=== PATIENT | male | born 1965 | race Two or more races ===

== ENCOUNTER → 2020-05-27 08:47 | Outpatient (REF) | payer OTHER, SELFPAY ==
--- NOTE | 2020-05-27 | NM_ITS ---
Lexiscan Myocardial perfusion study Indication: Chest pain, dizziness, COPD, smoking, assess for coronary disease and ischemia Technique: The patient was brought in for a Lexiscan perfusion study on 05/27/2020 and was injected 0.4 mg of Lexiscan intravenously. Within a minute of this injection 30 mCi of sestamibi was given intravenously. Images were obtained using the SPECT gamma camera interlaced with the gating device. Images were obtained in supine position. Resting perfusion study was performed on 05/28/2020. Patient was administered 30 mCi of sestamibi intravenously at rest. Images were then obtained in supine position. Total DLP 98mGy-cm. Images were processed with the software and compared side to side in short axis, horizontal long axis and vertical long axis views. Findings: Raw acquisition was reviewed. The stress perfusion study showed no significant perfusion abnormality. Both uncorrected as well as CT attenuation corrected images were reviewed. The gated study shows normal LV systolic function with calculated LVEF of 69%. LV cavity is normal in size. The gated study shows normal wall thickening and contraction of segments. Resting study shows no significant perfusion abnormality. Gating at rest reveals normal wall motion with ejection fraction at 53%. The findings are consistent with no reversible or fixed perfusion abnormality. NM/NM emilee perf SPECT rest & str Impression: 1. Myocardial perfusion imaging study shows likely normal myocardial perfusion. No definitive evidence of any ischemia or infarction 2. Gated LVEF is 69% during stress and 53 % during rest. 3. Transient ischemic dilatation not present. EKG component of the test reported separately.
--- NOTE | 2020-05-27 08:30 | CA_ITS ---
Acquisition Time: 2020-05-27 09:08:15 Total Exercise Time: 00:02:00 Test Indications: cp Medications: SEE CHART Protocol: LEXISCAN Max HR: 127 BPM 77% of Pred: 164 BPM Max BP: 134/070 mmHG Max Work Load: 1.0 METS Pharmacological stress test using Lexiscan while sitting and kicking his feet. Pt tolerated well. Denies any anginal sx. EKG without any arrhythmias, non-diagnostic for ischemia. Nuclear images to follow. Normotensiver esponse to test. Test reviewed with DR. Garcia Referred By: Jac Vance Overread By: William Vasques
== END ==
LOC: HO.CARD 08:47
PROVIDERS: PCP Internal Medicine; Visit Provider Internal Medicine Cardiovascular Disease
DX: R07.9 Chest pain, unspecified (principal)
CPT/HCPCS: 78452; 93017; A9500; J0280; J2785

== ENCOUNTER → 2020-07-28 09:39 | Outpatient (BNVA) | payer OTHER, SELFPAY | PROVIDERS: PCP Internal Medicine; Visit Provider Internal Medicine | DX: J44.9 Chronic obstructive pulmonary disease, unspecified (principal); G47.33 Obstructive sleep apnea (adult) (pediatric); Z79.899 Other long term (current) drug therapy; Z99.89 Dependence on other enabling machines and devices | CPT/HCPCS: 99212 ==

== ENCOUNTER → 2020-11-19 08:31 | Outpatient (BNVA) | payer OTHER, SELFPAY | PROVIDERS: PCP Internal Medicine; Visit Provider Internal Medicine | DX: Z13.89 Encounter for screening for other disorder (principal) | CPT/HCPCS: Q3014 ==

== ENCOUNTER 2020-11-26 08:09 | Outpatient (REF) | payer OTHER, SELFPAY ==
[2020-11-26 09:20] LABS: Hematocrit 39.3 % (42-52); Hemoglobin 12.6 g/dl (14.0-18.0)
[2020-11-26 09:53] LABS: Cholesterol 90 mg/dL; HDL Cholesterol 36 mg/dL; LDL Cholesterol Calculated 48 mg/dl; Triglycerides 34 mg/dL
[2020-11-26 10:12] LABS: Prostate Specific Antigen 0.17 ng/mL (<0.05-4.0); Vitamin D 25-OH Total 22.6 ng/mL (>30)
[2020-11-27 04:47] LABS: LDL Cholesterol Direct 38 mg/dL (<100)
[2020-11-27 05:12] LABS: Follicle Stimulating Hormone 6.8 mIU/mL (1.6-8.0); Lutenizing Hormone 2.3 mIU/mL (1.5-9.3); Prolactin 7.5 ng/mL (2.0-18.0)
[2020-11-27 07:11] LABS: Sex Hormone Binding Globulin 37 nmol/L (22-77)
[2020-11-30 12:37] LABS: Testosterone, Free 18.9 pg/mL (35.0-155.0); Testosterone, Total 115 ng/dL (250-1100)
== END 2020-11-26 08:10 | disposition home or self-care (01) ==
LOC: HO.LAB 08:09
PROVIDERS: PCP Internal Medicine; Visit Provider Internal Medicine
DX: Z12.5 Encounter for screening for malignant neoplasm of prostate (principal); E55.9 Vitamin D deficiency, unspecified; E29.1 Testicular hypofunction
CPT/HCPCS: 36415; 80061; 82306; 83001; 83002; 83721; 84146; 84153; 84270; 84402; 84403; 85014; 85018

== ENCOUNTER → 2020-12-31 12:48 | Outpatient (BNVA) | payer OTHER, SELFPAY | PROVIDERS: PCP Internal Medicine; Visit Provider Internal Medicine | DX: Z13.89 Encounter for screening for other disorder (principal) | CPT/HCPCS: Q3014 ==

== ENCOUNTER 2021-01-12 07:48 | Outpatient (REF) | payer OTHER, SELFPAY ==
[2021-01-12 09:05] LABS: Blood Urea Nitrogen 18 mg/dL (9-16); Estimated Glomerular Filt Rate > 60
[2021-01-13 07:37] LABS: Follicle Stimulating Hormone 6.1 mIU/mL (1.6-8.0); Lutenizing Hormone 3.4 mIU/mL (1.5-9.3); Prolactin 6.9 ng/mL (2.0-18.0)
[2021-01-13 13:16] LABS: Sex Hormone Binding Globulin 37 nmol/L (22-77)
[2021-01-16 17:56] LABS: Testosterone, Free 17.8 pg/mL (35.0-155.0); Testosterone, Total 125 ng/dL (250-1100)
== END 2021-01-12 07:49 | disposition home or self-care (01) ==
LOC: HO.LAB 07:48
PROVIDERS: Absent Provider Internal Medicine Endocrinology, Diabetes & Metabolism; PCP Internal Medicine; Visit Provider Internal Medicine
DX: E29.1 Testicular hypofunction (principal); E23.0 Hypopituitarism
CPT/HCPCS: 36415; 82565; 83001; 83002; 84146; 84270; 84402; 84403; 84520

== ENCOUNTER 2021-01-28 08:14 | Outpatient (REF) | payer OTHER, SELFPAY ==
--- NOTE | ~2021-01-28 | MR_ITS ---
MR BRAIN WITHOUT AND WITH CONTRAST CLINICAL INFORMATION: Testicular hypofunction. COMPARISON: None available. TECHNIQUE: Multiplanar, multisequence MRI of the brain was obtained before and after the intravenous administration of 5 mL Gadavist. FINDINGS: There is a 9 mm x 7 mm x 8 mm hypoenhancing lesion within the anterior aspect of the anterior pituitary lobe that is most suggestive of a pituitary microadenoma. The infundibulum remains midline and there is no mass effect on the optic nerve apparatus. There is no pathologic intracranial enhancement. There is mild chronic microangiopathy. There is no hydrocephalus, extra-axial surface collection, or herniation. The major flow voids at the skull base are preserved. There is no acute infarct on diffusion-weighted imaging. The cerebellar tonsils are normally positioned. The cerebellum and brainstem are normal. The craniocervical junction is normal. Osseous marrow signal intensity is homogenous. The visualized soft tissues are unremarkable. MR/MR head/brain wo/w con IMPRESSION: There is a 9 mm mm hypoenhancing lesion within the anterior aspect of the anterior pituitary lobe that is most suggestive of a pituitary microadenoma. No sellar/suprasellar mass effect.
== END 2021-01-28 08:15 | disposition home or self-care (01) ==
LOC: HO.MRI 08:14
PROVIDERS: PCP Internal Medicine; Visit Provider Internal Medicine
DX: E29.1 Testicular hypofunction (principal)
CPT/HCPCS: 70553; A9585

== ENCOUNTER 2021-02-06 07:19 | Outpatient (REF) | payer OTHER, SELFPAY ==
[2021-02-06 08:10] LABS: Anion Gap 10 (12-20); Blood Urea Nitrogen 19 mg/dL (9-16); Calcium 8.8 mg/dL (8.4-10.2); Carbon Dioxide 26 mmol/L (22-29); Chloride 108 mmol/L (96-108); Estimated Glomerular Filt Rate > 60; Glucose Random 119 mg/dL (60-115); Potassium 4.4 mmol/L (3.3-5.1); Sodium 140 mmol/L (135-145)
[2021-02-06 08:32] LABS: Free T4 (Free Thyroxine) 1.03 ng/dL (0.71-1.85); Thyroid Stimulating Hormone 0.96 uIU/mL (0.32-4.0)
[2021-02-07 18:56] LABS: Triiodothyronine T3 Total 107 ng/dL (76-181)
[2021-02-08 09:51] LABS: Follicle Stimulating Hormone 3.9 mIU/mL (1.6-8.0); Lutenizing Hormone 1.4 mIU/mL (1.5-9.3); Prolactin Undiluted 13.3 ng/mL (2.0-18.0)
[2021-02-09 14:21] LABS: Adrenocorticotropic Hormone 19 pg/mL (6-50)
[2021-02-09 15:57] LABS: IGF-1 (Somatomedin C) 73 ng/mL (50-317); IGF-1 Z Score (Male) -1.2 SD (-2.0 - +2.0)
[2021-02-12 10:03] LABS: Sex Hormone Binding Globulin 43 nmol/L (22-77)
[2021-02-12 15:47] LABS: Testosterone, Free 9.5 pg/mL (35.0-155.0); Testosterone, Total 64 ng/dL (250-1100)
== END 2021-02-06 07:20 | disposition home or self-care (01) ==
LOC: HO.LAB 07:19
PROVIDERS: PCP Internal Medicine; Visit Provider Internal Medicine
DX: D35.2 Benign neoplasm of pituitary gland (principal)
CPT/HCPCS: 36415; 80048; 82024; 82533; 83001; 83002; 84146; 84270; 84305; 84402; 84403; 84439; 84443; 84480

== ENCOUNTER → 2021-03-25 15:29 | Outpatient (BNVA) | payer OTHER, SELFPAY | PROVIDERS: PCP Internal Medicine; Visit Provider Internal Medicine | DX: E29.1 Testicular hypofunction (principal); D35.2 Benign neoplasm of pituitary gland; G47.33 Obstructive sleep apnea (adult) (pediatric); E55.9 Vitamin D deficiency, unspecified; E04.9 Nontoxic goiter, unspecified; F17.210 Nicotine dependence, cigarettes, uncomplicated; Z99.89 Dependence on other enabling machines and devices; Z79.891 Long term (current) use of opiate analgesic; Z79.899 Other long term (current) drug therapy | CPT/HCPCS: 99212 ==

== ENCOUNTER 2021-03-26 07:37 | Outpatient (REF) | payer OTHER, SELFPAY ==
[2021-03-26 09:20] LABS: Prostate Specific Antigen 0.25 ng/mL (<0.05-4.0)
[2021-03-27 19:26] LABS: Sex Hormone Binding Globulin 41 nmol/L (22-77)
[2021-03-31 09:36] LABS: Prolactin Undiluted 7.6 ng/mL (2.0-18.0)
[2021-03-31 13:21] LABS: Testosterone, Free 13.3 pg/mL (35.0-155.0); Testosterone, Total 104 ng/dL (250-1100)
== END 2021-03-26 07:38 | disposition home or self-care (01) ==
LOC: HO.LAB 07:37
PROVIDERS: PCP Internal Medicine; Visit Provider Internal Medicine
DX: Z12.5 Encounter for screening for malignant neoplasm of prostate (principal); D35.2 Benign neoplasm of pituitary gland
CPT/HCPCS: 36415; 84146; 84153; 84270; 84402; 84403

== ENCOUNTER → 2021-05-11 11:15 | Outpatient (BNVA) | payer OTHER, SELFPAY | PROVIDERS: PCP Internal Medicine; Visit Provider Internal Medicine | DX: Z13.89 Encounter for screening for other disorder (principal) | CPT/HCPCS: Q3014 ==

== ENCOUNTER 2021-05-18 09:19 | Outpatient (REF) | payer OTHER, SELFPAY ==
--- NOTE | ~2021-05-18 | US_ITS ---
EXAMINATION: US THYROID CLINICAL INFORMATION: Goiter COMPARISON: None TECHNIQUE: Linear transducer miller-scale and color Doppler examination with attention to the region of the thyroid. FINDINGS: SIZE: Measurements of the thyroid lobes and nodules are given in sagittal, anteroposterior and transverse dimensions respectively. Right Thyroid Lobe: 4.35 x 2.02 x 2.29 cm, volume 10.6 mL. Parenchyma: The gland echotexture is homogeneous. Thyroid vascularity is increased. Left Thyroid Lobe: 4.66 x 1.71 x 2.02 cm, volume 8.44 mL. Parenchyma: The gland echotexture is homogeneous. Thyroid vascularity is increased. Isthmus: 0.37 cm in maximum AP dimension. No focal thyroid nodule is seen. NODES: No lymphadenopathy is seen in the tissue surrounding the thyroid gland. US/US thyroid IMPRESSION: Unremarkable exam.
== END 2021-05-18 09:20 | disposition home or self-care (01) ==
LOC: HO.HMGCX 09:19
PROVIDERS: PCP Internal Medicine; Visit Provider Internal Medicine
DX: D35.2 Benign neoplasm of pituitary gland (principal)
CPT/HCPCS: 76536

== ENCOUNTER 2021-05-27 11:35 | Outpatient (REF) | payer OTHER, SELFPAY ==
[2021-05-27 12:35] LABS: Hematocrit 38.3 % (42.0-52.0); Hemoglobin 12.4 g/dl (14.0-18.0)
[2021-05-28 10:47] LABS: Sex Hormone Binding Globulin 38 nmol/L (22-77)
[2021-06-01 16:11] LABS: Testosterone, Free 96.7 pg/mL (35.0-155.0); Testosterone, Total 537 ng/dL (250-1100)
== END 2021-05-27 11:36 | disposition home or self-care (01) ==
LOC: HO.LAB 11:35
PROVIDERS: PCP Internal Medicine; Visit Provider Internal Medicine
DX: D35.2 Benign neoplasm of pituitary gland (principal); E23.0 Hypopituitarism
CPT/HCPCS: 36415; 84270; 84402; 84403; 85014; 85018

== ENCOUNTER → 2021-06-25 10:14 | Outpatient (BNVA) | payer OTHER, SELFPAY | PROVIDERS: PCP Internal Medicine; Visit Provider Internal Medicine ==

== ENCOUNTER → 2021-08-03 07:42 | Outpatient (BNVA) | payer OTHER, SELFPAY | PROVIDERS: PCP Internal Medicine; Visit Provider Internal Medicine | DX: E23.0 Hypopituitarism (principal); E55.9 Vitamin D deficiency, unspecified; D35.2 Benign neoplasm of pituitary gland | CPT/HCPCS: Q3014 ==

== ENCOUNTER 2021-08-07 10:10 | Outpatient (REF) | payer OTHER, SELFPAY ==
[2021-08-08 11:01] LABS: Sex Hormone Binding Globulin 35 nmol/L (22-77)
[2021-08-13 14:56] LABS: Testosterone, Free 155.8 pg/mL (35.0-155.0); Testosterone, Total 779 ng/dL (250-1100)
== END 2021-08-07 10:11 | disposition home or self-care (01) ==
LOC: HO.LAB 10:10
PROVIDERS: PCP Internal Medicine; Visit Provider Internal Medicine
DX: E29.1 Testicular hypofunction (principal)
CPT/HCPCS: 36415; 84270; 84402; 84403

== ENCOUNTER 2021-08-21 08:08 | Outpatient (REF) | payer OTHER, SELFPAY ==
--- NOTE | ~2021-08-21 | MR_ITS ---
EXAMINATION: MR BRAIN WITHOUT AND WITH CONTRAST CLINICAL INFORMATION: Benign neoplasm of pituitary. COMPARISON: MRI brain 01/28/2021. MRI brain 07/20/2019. TECHNIQUE: Multiplanar, multisequence pituitary protocol MRI of the brain was obtained before and after the intravenous administration of 5 mL Gadavist. FINDINGS: A 9 mm x 7 mm by 8mm rounded focus with low signal intensity relative to pituitary elsewhere and contrast-enhanced images is present centrally within the anterior aspect of the pituitary. The cavernous sinuses, pituitary stalk, suprasellar cistern and optic chiasm are normal in appearance. Unenhanced images demonstrate homogeneous intermediate low T1 and high T2-weighted signal intensity within the 9 mm pituitary lesion noted above. Of note, thin section images through the pituitary are slightly suboptimal secondary to motion artifact. Elsewhere within the brain, no additional tumors are noted. No intracranial hemorrhage or infarcts are identified. The ventricles and sulci are normal in size and configuration. A small number scattered supratentorial nonenhancing rounded subcortical punctate (3 mm less) T2 hyperintensities are unchanged compared with 01/28/2021 making allowances for interval differences in slice selection. The craniocervical junction cerebellar tonsils are normal in appearance. No suspicious marrow abnormalities identified. Normal flow-related signal intensity is identified in the major intrarenal vessels and dural sinuses. Making allowances for artifacts, no acute abnormalities of the orbits and globes are noted. Mild tortuosity of the optic nerves is partially visualized and appears grossly stable compared with 01/28/2021 no gross intraorbital tumors are noted. Whole brain postcontrast enhanced images demonstrate no abnormal enhancement of the brain parenchyma outside of the pituitary focus noted above. MR/MR head/brain wo/w con IMPRESSION: *No change compared with 01/28/2021. Stable 9 mm lesion within the midline anterior aspect of the pituitary which as noted on the exam of 01/28/2021 is suggestive of a pituitary microadenoma. No associated invasion of the cavernous sinus or effacement of the sellar/suprasellar cisterns.
[2021-08-23 08:16] LABS: Sex Hormone Binding Globulin 31 nmol/L (22-77)
[2021-08-27 10:37] LABS: Testosterone, Total 432 ng/dL (250-1100)
== END 2021-08-21 08:09 | disposition home or self-care (01) ==
LOC: HO.MRI 08:08
PROVIDERS: PCP Internal Medicine; Visit Provider Internal Medicine
DX: D35.2 Benign neoplasm of pituitary gland (principal); E23.0 Hypopituitarism
CPT/HCPCS: 36415; 70553; 84270; 84402; 84403; A9585

== ENCOUNTER 2021-09-30 09:38 | Outpatient (REF) | payer OTHER, SELFPAY ==
[2021-09-30 12:13] LABS: Thyroid Stimulating Hormone 0.95 uIU/mL (0.32-4.0)
[2021-10-01 08:21] LABS: Triiodothyronine T3 Total 94 ng/dL (76-181)
== END 2021-09-30 09:39 | disposition home or self-care (01) ==
LOC: HO.LAB 09:38
PROVIDERS: PCP Internal Medicine; Visit Provider Internal Medicine
DX: E23.0 Hypopituitarism (principal); D35.2 Benign neoplasm of pituitary gland; E55.9 Vitamin D deficiency, unspecified; Z79.899 Other long term (current) drug therapy
CPT/HCPCS: 36415; 84439; 84443; 84480; 99212

== ENCOUNTER 2021-11-16 11:46 | Outpatient (REF) | payer OTHER, SELFPAY ==
--- NOTE | ~2021-11-16 | XR_ITS ---
EXAMINATION: XR LUMBOSACRAL SPINE CLINICAL INFORMATION: Pain COMPARISON: None TECHNIQUE: Three views of the lumbosacral spine. FINDINGS: Bone alignment is normal. No fracture or dislocation is seen. There is multilevel degenerative disc disease. There is multilevel facet arthritis. XR/XR lumbar spine 2-3V IMPRESSION: Multilevel degenerative changes.
--- NOTE | ~2021-11-16 | XR_ITS ---
EXAMINATION: BILATERAL KNEE X-RAY CLINICAL INFORMATION: Pain COMPARISON: Previous exam November 1999 TECHNIQUE: 4 views of each knee FINDINGS: Right: Bone alignment is normal. No fracture or dislocation is seen. There are mild degenerative changes at the medial femoral tibial joint with joint space narrowing and osteophyte formation. Joint spaces are otherwise normal. There is no joint effusion. Left: Bone alignment is normal. No fracture or dislocation is seen. Joint spaces are normal. There is no joint effusion. XR/XR knee RT 4V IMPRESSION: Right knee: Mild degenerative changes at the medial femoral tibial joint. Left knee: Unremarkable exam.
--- NOTE | ~2021-11-16 | XR_ITS ---
EXAMINATION: BILATERAL KNEE X-RAY CLINICAL INFORMATION: Pain COMPARISON: Previous exam November 1999 TECHNIQUE: 4 views of each knee FINDINGS: Right: Bone alignment is normal. No fracture or dislocation is seen. There are mild degenerative changes at the medial femoral tibial joint with joint space narrowing and osteophyte formation. Joint spaces are otherwise normal. There is no joint effusion. Left: Bone alignment is normal. No fracture or dislocation is seen. Joint spaces are normal. There is no joint effusion. XR/XR knee LT 4V IMPRESSION: Right knee: Mild degenerative changes at the medial femoral tibial joint. Left knee: Unremarkable exam.
== END 2021-11-16 11:47 | disposition home or self-care (01) ==
LOC: HO.XRAY 11:46
PROVIDERS: PCP Internal Medicine; Visit Provider Internal Medicine
DX: M15.9 Polyosteoarthritis, unspecified (principal); M54.59 Other low back pain
CPT/HCPCS: 72100; 73564

== ENCOUNTER → 2022-01-06 11:51 | Outpatient (BNVA) | payer OTHER, SELFPAY | PROVIDERS: PCP Internal Medicine; Visit Provider Internal Medicine | DX: E23.0 Hypopituitarism (principal); E55.9 Vitamin D deficiency, unspecified; D35.2 Benign neoplasm of pituitary gland; Z79.899 Other long term (current) drug therapy | CPT/HCPCS: Q3014 ==

== ENCOUNTER 2022-03-08 08:47 | Outpatient (REF) | payer OTHER, SELFPAY ==
[2022-03-08 09:36] LABS: Hematocrit 41.5 % (42.0-52.0); Hemoglobin 13.7 g/dl (14.0-18.0)
[2022-03-08 09:58] LABS: Osmolality, Serum 292 mosm/kg (281-305)
[2022-03-08 10:04] LABS: Anion Gap 13 (12-20); Blood Urea Nitrogen 18 mg/dL (9-16); Calcium 8.6 mg/dL (8.4-10.2); Carbon Dioxide 26 mmol/L (22-29); Chloride 103 mmol/L (96-108); Estimated Glomerular Filt Rate > 60; Glucose Random 106 mg/dL (60-115); Potassium 4.1 mmol/L (3.3-5.1); Sodium 138 mmol/L (135-145)
[2022-03-08 10:29] LABS: Free T4 (Free Thyroxine) 1.09 ng/dL (0.71-1.85); Prostate Specific Antigen 0.08 ng/mL (<0.05-4.0); Thyroid Stimulating Hormone 1.18 uIU/mL (0.32-4.0); Vitamin D 25-OH Total 30.6 ng/mL (>30)
[2022-03-08 11:01] LABS: Cortisol Random 11.9 ug/dL
[2022-03-10 04:51] LABS: Sex Hormone Binding Globulin 30 nmol/L (22-77)
[2022-03-10 05:32] LABS: Triiodothyronine T3 Free 3.8 pg/mL (2.3-4.2)
[2022-03-11 14:36] LABS: Adrenocorticotropic Hormone 18 pg/mL (6-50)
[2022-03-11 22:03] LABS: Follicle Stimulating Hormone 2.4 mIU/mL (1.6-8.0); Lutenizing Hormone 0.9 mIU/mL (1.5-9.3); Prolactin Undiluted 5.5 ng/mL (2.0-18.0)
[2022-03-12 14:52] LABS: IGF-1 (Somatomedin C) 84 ng/mL (50-317)
[2022-03-13 21:36] LABS: Estradiol Ultra Sensitive 7 pg/mL (< OR = 29)
[2022-03-16 19:31] LABS: Testosterone, Free 3.8 pg/mL (35.0-155.0); Testosterone, Total 21 ng/dL (250-1100)
== END 2022-03-08 08:48 | disposition home or self-care (01) ==
LOC: HO.LAB 08:47
PROVIDERS: PCP Internal Medicine; Visit Provider Internal Medicine
DX: D35.2 Benign neoplasm of pituitary gland (principal); E29.1 Testicular hypofunction; E55.9 Vitamin D deficiency, unspecified; Z12.5 Encounter for screening for malignant neoplasm of prostate
CPT/HCPCS: 36415; 80048; 82024; 82306; 82533; 82670; 83001; 83002; 83930; 84146; 84153; 84270; 84305; 84402; 84403; 84439; 84443; 84481; 85014; 85018

== ENCOUNTER → 2022-03-15 12:32 | Outpatient (BNVA) | payer OTHER, SELFPAY | PROVIDERS: PCP Internal Medicine; Visit Provider Internal Medicine | DX: E23.0 Hypopituitarism (principal); E55.9 Vitamin D deficiency, unspecified; D35.2 Benign neoplasm of pituitary gland; Z79.899 Other long term (current) drug therapy | CPT/HCPCS: 99212 ==

== ENCOUNTER 2022-04-12 08:07 | Outpatient (REF) | payer OTHER, SELFPAY ==
--- NOTE | ~2022-04-12 | MR_ITS ---
EXAMINATION: MR BRAIN WITHOUT AND WITH CONTRAST CLINICAL INFORMATION: Benign neoplasm of pituitary gland. COMPARISON: Brain MRI August 13, 2021. TECHNIQUE: Multiplanar, multisequence imaging of the brain was performed before and after the intravenous administration of 5 mL of Gadavist. FINDINGS: There is redemonstration of a hypoenhancing lesion within the anterior aspect of the pituitary gland measuring up to 8 mm which appears stable compared with the recent prior exam from August 21, 2021. The remainder the pituitary gland appears normal. The infundibulum is normal in thickness and morphology. The cavernous sinuses demonstrate normal and symmetric enhancement. The optic apparatus appears normal. There is no acute infarction, parenchymal mass, or extra-axial fluid collection. No abnormal parenchymal enhancement is seen. Minimal nonspecific foci of T2/FLAIR hyperintensity are seen within the cerebral white matter. The major arterial flow voids are preserved at the skull base. The extracranial structures appear normal. MR/MR head/brain wo/w con IMPRESSION: Stable appearance of the 8 mm anterior pituitary microadenoma. No evidence of new or acute abnormality.
== END 2022-04-12 08:08 | disposition home or self-care (01) ==
LOC: HO.MRI 08:07
PROVIDERS: Visit Provider Internal Medicine
DX: D35.2 Benign neoplasm of pituitary gland (principal)
CPT/HCPCS: 70553; A9585

== ENCOUNTER 2022-08-19 07:06 | Outpatient (REF) | payer OTHER, SELFPAY ==
[2022-08-19 07:48] LABS: Anion Gap 15 (12-20); Blood Urea Nitrogen 17 mg/dL (9-16); Calcium 9.1 mg/dL (8.4-10.2); Carbon Dioxide 26 mmol/L (22-29); Chloride 103 mmol/L (96-108); Estimated Glomerular Filt Rate > 60; Glucose Random 114 mg/dL (60-115); Potassium 4.1 mmol/L (3.3-5.1); Sodium 140 mmol/L (135-145)
[2022-08-19 08:03] LABS: Free T4 (Free Thyroxine) 2.06 ng/dL (0.71-1.85); Thyroid Stimulating Hormone 1.67 uIU/mL (0.32-4.0)
[2022-08-19 08:04] LABS: Cortisol Random 16.3 ug/dL
[2022-08-19 08:52] LABS: Osmolality, Serum 293 mosm/kg (281-305)
[2022-08-20 14:39] LABS: Adrenocorticotropic Hormone 32 pg/mL (6-50)
[2022-08-21 16:08] LABS: Triiodothyronine T3 Total 99 ng/dL (76-181)
[2022-08-22 02:04] LABS: Sex Hormone Binding Globulin 28 nmol/L (22-77)
[2022-08-23 21:08] LABS: Follicle Stimulating Hormone 3.4 mIU/mL (1.6-8.0); Lutenizing Hormone 0.6 mIU/mL (1.5-9.3); Prolactin Undiluted 6.7 ng/mL (2.0-18.0)
[2022-08-26 13:34] LABS: IGF-1 (Somatomedin C) 91 ng/mL (50-317); IGF-1 Z Score (Male) -0.8 SD (-2.0 - +2.0)
[2022-08-27 19:03] LABS: Testosterone, Free 5.6 pg/mL (35.0-155.0); Testosterone, Total 37 ng/dL (250-1100)
== END 2022-08-19 07:07 | disposition home or self-care (01) ==
LOC: HO.LAB 07:06
PROVIDERS: PCP Internal Medicine; Visit Provider Internal Medicine
DX: D35.2 Benign neoplasm of pituitary gland (principal)
CPT/HCPCS: 36415; 80048; 82024; 82533; 83001; 83002; 83930; 84146; 84270; 84305; 84402; 84403; 84439; 84443; 84480

== ENCOUNTER → 2022-08-23 07:53 | Outpatient (BNVA) | payer OTHER, SELFPAY | PROVIDERS: PCP Internal Medicine; Visit Provider Internal Medicine | DX: E23.0 Hypopituitarism (principal); E55.9 Vitamin D deficiency, unspecified; D35.2 Benign neoplasm of pituitary gland | CPT/HCPCS: 99212 ==

== ENCOUNTER 2022-08-24 08:07 | Outpatient (REF) | payer OTHER, SELFPAY ==
--- NOTE | ~2022-08-24 | MM_ITS ---
EXAMINATION: BONE DENSITOMETRY CLINICAL INDICATION: Hypopituitarism. COMPARISON: None (current study represents initial baseline exam). TECHNIQUE: Using a [employer] DXA System (software version: 13.1) manufactured by [employer], dual-energy x-ray absorptiometry was performed of the lumbar spine and left hip. The images are of good technical quality. Summary results are attached. FINDINGS: AP SPINE L1-L2 (excluding L3 and L4): The data of L1-L4 has been changed to exclude the L3 and L4 vertebral bodies, because degenerative changes at these levels may cause overestimation of lumbar spine density. BMD 0.988 g/cm2, Z-score -2.2, T-score -1.8, osteopenia. LEFT FEMUR, NECK: BMD 0.892 g/cm2, Z-score -1.0, T-score -1.4, osteopenia. LEFT FEMUR, TOTAL: BMD 1.017 g/cm2, Z-score -0.6, T-score -0.6, normal. IDENTIFIED RISK FACTORS: Medical use (current smoker), secondary osteoporosis. HISTORY OF FRACTURE: None listed. MEDICATIONS: None listed. MM/XR DEXA axial skeleton IMPRESSION: 1. DIAGNOSIS: Osteopenia based on the lowest T-score value of -1.8 in the lumbar spine applying World Health Organization criteria. 2. 10-YEAR FRACTURE RISK PREDICTION, FRAX: Major osteoporotic fracture (clinical spine, forearm, hip or shoulder) 2.8%. Hip fracture 0.4%. 3. Treatment Recommendations: NOF guidelines recommend consideration for treatment in postmenopausal women and men age 50 and older presenting with the following: -A hip or vertebral (clinical or morphometric) fracture. -T-score less than or equal to -2.5 at the femoral neck or spine after appropriate evaluation to exclude secondary causes. -Low bone mass at the hip or spine and a 10-year fracture probability by FRAX of greater than or equal to 3% for hip fracture or greater than or equal to 20% for major osteoporotic fracture based on the [place] adapted WHO algorithm. 4. Other Recommendations: All treatment decisions require clinical judgment and consideration of individual patient factors, including patient preferences, comorbidities, previous drug use, risk factors not captured in the FRAX model (e.g. frailty, falls, vitamin D deficiency, increased bone turnover, interval significant decline in bone density) and possible under or overestimation of fracture risk by FRAX. Additional medical evaluation for secondary cause of low bone mineral density may be appropriate. FUTURE SCAN RECOMMENDATION: People with diagnosed cases of osteoporosis or at high risk for fracture should have regular bone mineral density tests. For patients eligible for Medicare, routine testing is allowed once every 2 years. The testing frequency can be increased to one year for patients who have rapidly progressing disease, those who are receiving or discontinuing medical therapy to restore bone mass, or have additional risk factors.
== END 2022-08-24 08:08 | disposition home or self-care (01) ==
LOC: HO.MAMMO 08:07
PROVIDERS: PCP Internal Medicine; Visit Provider Internal Medicine
DX: Z13.820 Encounter for screening for osteoporosis (principal); E23.0 Hypopituitarism
CPT/HCPCS: 77080

== ENCOUNTER 2022-09-20 07:06 | Outpatient (REF) | payer OTHER, SELFPAY ==
[2022-09-20 07:49] LABS: Hematocrit 41.9 % (42.0-52.0); Hemoglobin 13.6 g/dl (14.0-18.0)
[2022-09-20 08:42] LABS: Prostate Specific Antigen 0.14 ng/mL (<0.05-4.0)
[2022-09-21 10:29] LABS: Sex Hormone Binding Globulin 25 nmol/L (22-77)
[2022-09-28 16:14] LABS: Testosterone, Free 4.2 pg/mL (35.0-155.0); Testosterone, Total 23 ng/dL (250-1100)
== END 2022-09-20 07:07 | disposition home or self-care (01) ==
LOC: HO.LAB 07:06
PROVIDERS: PCP Internal Medicine; Visit Provider Internal Medicine
DX: E23.0 Hypopituitarism (principal); Z12.5 Encounter for screening for malignant neoplasm of prostate
CPT/HCPCS: 36415; 84153; 84270; 84402; 84403; 85014; 85018

== ENCOUNTER → 2022-11-24 07:23 | Outpatient (BNVA) | payer OTHER, SELFPAY | PROVIDERS: PCP Internal Medicine; Visit Provider Internal Medicine | DX: E23.0 Hypopituitarism (principal); E55.9 Vitamin D deficiency, unspecified; D35.2 Benign neoplasm of pituitary gland; M85.80 Other specified disorders of bone density and structure, unspecified site; Z79.899 Other long term (current) drug therapy | CPT/HCPCS: 99212 ==

== ENCOUNTER 2023-02-03 07:29 | Outpatient (REF) | payer OTHER, SELFPAY ==
--- NOTE | ~2023-02-03 | MR_ITS ---
EXAMINATION: MR BRAIN WITHOUT AND WITH CONTRAST CLINICAL INFORMATION: Benign neoplasm of the pituitary gland. COMPARISON: Brain MRI from 04/11/2022. TECHNIQUE: MRI of the brain was obtained using pituitary protocol without and following the administration of 5 mL of Gadavist intravenous contrast. FINDINGS: No focal restricted diffusion is demonstrated to suggest acute or subacute cerebral ischemia. Scattered periventricular and deep white matter T2 FLAIR hyperintensities consistent with mild underlying microangiopathy. Proportional prominence of the ventricles and sulcal spaces without evidence of obstructive hydrocephalus. No abnormal mass effect. No midline shift. Stable appearance of the hypoenhancing lesion inferior to the anterior aspect of the pituitary gland, measuring up to 0.8 x 0.6 x 0.6 cm. This lesion demonstrates T2 hyperintensity. There is no new hyperenhancing lesion demonstrated on post contrast imaging. The pituitary infundibulum is minimally deviated to the right. The suprasellar cistern remains patent. No abnormal mass effect on the optic chiasm. Normal positioning of the cerebellar tonsils. Normal arterial and venous vascular flow voids are present. No abnormal contrast enhancement. Normal, homogeneous marrow signal. Mild mucosal thickening of the paranasal sinuses. No signal abnormalities within the mastoids. MR/MR head/brain wo/w con IMPRESSION: 1. Stable appearance of a 0.8 cm hypoenhancing lesion inferior to the anterior aspect of the pituitary gland, suggestive of a pituitary microadenoma. 2. No acute intracranial abnormalities. No additional abnormal intracranial enhancement. 3. Mild underlying microangiopathy and generalized cerebral volume loss.
== END 2023-02-03 07:30 | disposition home or self-care (01) ==
LOC: HO.MRI 07:29
PROVIDERS: PCP Internal Medicine; Visit Provider Internal Medicine
DX: D35.2 Benign neoplasm of pituitary gland (principal)
CPT/HCPCS: 70553; A9585

== ENCOUNTER 2023-03-14 07:34 | Outpatient (AMB) | payer OTHER, SELFPAY ==
--- NOTE | 2023-03-14 07:35 | A.OFFVIS_ITS ---
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 Back Tender Cylinder Required: No Allergies No Known Allergies [No Known Allergies*] Allergy (Verified 03/14/23 07:49) Medication List - Last Reconciled 03/14/23 by Moira Spencer, albuterol sulfate 90 mcg/actuation (ProAir HFA) 2 puffs inhalation Q6H PRN bupropion HCl (Wellbutrin SR) 150 mg PO BID celecoxib 0 mg PO dexamethasone 1 mg PO DAILY ferrous sulfate (FeroSul) 325 mg PO Q OTHER DAY fluticasone propion-salmeterol 250-50 mcg/dose (Wixela Inhub) 1 inh inhalation BID gabapentin 100 mg PO BEDTIME ipratropium-albuterol 20-100 mcg/actuation (Combivent Respimat) 1 puff inhalation QID lidocaine 5% 5 appl topical DAILY methadone 52 mg PO DAILY omeprazole 20 mg PO DAILY pantoprazole 1 tab PO DAILY polyethylene glycol 3350 8.5 grams PO DAILY PRN propranolol 1 tab PO BID risperidone 2 mg PO BEDTIME testosterone (AndroGel) 1 packet transdermal DAILY 30 days trazodone 1 tab PO BEDTIME HPI HPI Comments History of Present Illness Details 57 YO Male with PMHx Hypogonadism who is seen in F/U for a pituitary microadenoma and hypogonadism. First diagnosed with Hypogonadism in the early 1999's. Was started on Testosterone supplementation with androgel. Stopped this in 2018. He is unsure why this was stopped. We checked labs after our initial visit, and this revealed hypogonadotropic hypogonadism. Pituitary MRI was checked 01/28/21 which revealed a 0.9 cm pituitary microadenoma. There did not appear to be encroachment on the optic apparatus. A full pituitary panel was checked which confirmed hypogonadotropic hypogonadism, but was otherwise WNL. Prolactin was WNL, but unfortunately dilution was initially not assessed. Prolactin was repeated, including by dilution, and both were WNL. He was started on Androgel 1 packet transdermal daily. Testosterone was at goal on this, but he stopped it of his own accord. Repeat testosterone levels after 2 months off treatment were WNL, so he was not resumed on androgel. Levels were repeated again and now are in hypogonadal range. He was again resumed on androgel 1 packet transdermal daily, but has not yet repeated labs. Pituitary MRI was repeated 02/03/2023 and was unchanged from prior. He does complain of headaches, but denies blurred vision and double vision. He does report pressure/pain in the right eye. He was referred to Ophtho and underwent a visual field exam 05/28/2021. Visual castillo were WNL at that time. He was asked to F/U again with optho but has not yet done so. He has an appointment for January. He was also referred to neurosurgery due to his headaches, and has his appointment coming up next month. He did have a DXA which reveals osteopenia at all sites. with children who were conceived spontaneously. He does have VICTORIA and uses his CPAP nightly. Denies gynecomastia or galactorrhea. Denies any history of DVT or PE. Pituitary MRI: 02/03/2023 TECHNIQUE: MRI of the brain was obtained using pituitary protocol without and following the administration of 5 mL of Gadavist intravenous contrast. FINDINGS: No focal restricted diffusion is demonstrated to suggest acute or subacute cerebral ischemia. Scattered periventricular and deep white matter T2 FLAIR hyperintensities consistent with mild underlying microangiopathy. Proportional prominence of the ventricles and sulcal spaces without evidence of obstructive hydrocephalus. No abnormal mass effect. No midline shift. Stable appearance of the hypoenhancing lesion inferior to the anterior aspect of the pituitary gland, measuring up to 0.8 x 0.6 x 0.6 cm. This lesion demonstrates T2 hyperintensity. There is no new hyperenhancing lesion demonstrated on post contrast imaging. The pituitary infundibulum is minimally deviated to the right. The suprasellar cistern remains patent. No abnormal mass effect on the optic chiasm. Normal positioning of the cerebellar tonsils. Normal arterial and venous vascular flow voids are present. No abnormal contrast enhancement. Normal, homogeneous marrow signal. Mild mucosal thickening of the paranasal sinuses. No signal abnormalities within the mastoids. MR/MR head/brain wo/w con IMPRESSION: 1.? Stable appearance of a 0.8 cm hypoenhancing lesion inferior to the anterior aspect of the pituitary gland, suggestive of a pituitary microadenoma. 2.? No acute intracranial abnormalities. No additional abnormal intracranial enhancement. 3.? Mild underlying microangiopathy and generalized cerebral volume loss. DXA: 08/24/2022 FINDINGS: AP SPINE L1-L2 (excluding L3 and L4): The data of L1-L4 has been changed to exclude the L3 and L4 vertebral bodies, because degenerative changes at these levels may cause overestimation of lumbar spine density. BMD 0.988 g/cm2, Z-score -2.2, T-score -1.8, osteopenia. LEFT FEMUR, NECK: BMD 0.892 g/cm2, Z-score -1.0, T-score -1.4, osteopenia. LEFT FEMUR, TOTAL: BMD 1.017 g/cm2, Z-score -0.6, T-score -0.6, normal. Labs: Laboratory Tests 03/08/22 03/08/22 08/19/22 09:07 09:07 07:17 Sodium 140 Potassium 4.1 Creatinine 0.85 Estimated GFR > 60 Osmolality Prostate Specific Ag 0.08 25-OH Vitamin D To romero 30.6 TSH 1.67 Free T4 2.06 H Total T3 FSH 2.4 Luteinizing Hormon e 0.9 L Prolactin Undilute d 5.5 Total Testosterone 21 L Fr Testosterone Di gavino 3.8 L Sex Hormone Bind G lob Random Cortisol ACTH 08/19/22 08/19/22 08/19/22 07:17 07:17 07:17 Sodium Potassium Creatinine Estimated GFR Osmolality 293 Prostate Specific Ag 25-OH Vitamin D To romero TSH Free T4 Total T3 99 FSH Luteinizing Hormon e Prolactin Undilute d Total Testosterone Fr Testosterone Di gavino Sex Hormone Bind G lob 28 Random Cortisol ACTH 32 08/19/22 07:17 Sodium Potassium Creatinine Estimated GFR Osmolality Prostate Specific Ag 25-OH Vitamin D To romero TSH Free T4 Total T3 FSH Luteinizing Hormon e Prolactin Undilute d Total Testosterone Fr Testosterone Di gavino Sex Hormone Bind G lob Random Cortisol 16.3 ACTH PFSH Medical History Colon polyps COPD (chronic obstructive pulmonary disease) Goiter Hepatitis C Hypogonadism Hypogonadism in male Hypogonadotropic hypogonadism Myalgia VICTORIA (obstructive sleep apnea) Osteoarthritis Osteopenia Pituitary microadenoma Sleep apnea Thrombocytopenia Vitamin D deficiency Surgical History Hx of carpal tunnel repair Family History Maternal Aunt Cancer Father Diabetes Paternal Aunt Diabetes Paternal Aunt Diabetes Social History Alcohol intake: former Patient Tobacco Use Status: Current everyday Tobacco user Cigarette Packs Per Day: 10 Years Smoked: 45 Substance Use Type: Prescription Drugs Assessment & Plan Assessment & Plan (1) Hypogonadotropic hypogonadism: Code(s): E23.0 - Hypopituitarism Plan: Patient with hypogonadotropic hypogonadism. He does have a 0.8 cm pituitary microadenoma, which is nonsecreting. He has been resumed on Testosterone 1% 1 packet transdermal daily. He has not yet repeated labs. Patient will be folowing up with Dr. Tinajero and will complete labs per his discretion. We did discuss potential ADRs of polycythemia, BPH and prostate cancer. We also discussed ADRs of aggression. All of his questions were answered. He is in agreement with this plan of care. I spent 20 minutes in reviewing the record, seeing the patient and documenting in the medical record, including 5 minutes on the phone with the Patient. (2) Vitamin D deficiency: Code(s): E55.9 - Vitamin D deficiency, unspecified Plan: Will continue with Vitamin D 2000 IU daily. (3) Pituitary microadenoma: Code(s): D35.2 - Benign neoplasm of pituitary gland Plan: Patient with a 0.8 cm pituitary microadenoma. Visual castillo were WNL on his most recent exam. He is due for another. I have advised him to call Ophtho to see if a sooner appointment is available. Given his daily headaches which he says are worse in intensity I will repeat his pituitary MRI now to assess for expansion of the sellar mass. I have also referred him to Neurosurgery. He has this appointment coming up next month. He did not do his dexamethasone suppression test. He can complete this per roman's discretion. Management of hypogonadism as per section. (4) Osteopenia: Code(s): M85.80 - Other specified disorders of bone density and structure, unspecified site Plan: I suspect this is related to longstanding hypogonadism. He is now on testosterone replacement. Will continue with this and repeat BMD in 2 years time to assess for improvement. Telehealth Telehealth Location of provider rendering services: practice address Location of patient: address on file Patient Identification confirmed using: Name, : Yes Telehealth method: voice only Patient verbally consented to treatment: Yes Patient verbally consented to billing insurance company: Yes Patient informed of any privacy concerns related to visit: Yes Coding Level of Care Code Tele Est Pt Level 3 (74171) Diagnoses Hypogonadotropic hypogonadism E23.0 Vitamin D deficiency E55.9 Pituitary microadenoma D35.2 Osteopenia M85.80
== END 2023-03-14 14:37 | disposition home or self-care (01) ==
LOC: HO.ENCR 07:34
PROVIDERS: PCP Internal Medicine; Visit Provider Internal Medicine
DX: E23.0 Hypopituitarism (principal); E55.9 Vitamin D deficiency, unspecified; D35.2 Benign neoplasm of pituitary gland; M85.80 Other specified disorders of bone density and structure, unspecified site
CPT/HCPCS: 99441

== ENCOUNTER → 2023-03-14 07:34 | Outpatient (BNVA) | payer OTHER, SELFPAY | PROVIDERS: PCP Internal Medicine; Visit Provider Internal Medicine ==

== ENCOUNTER 2023-04-25 09:39 | Outpatient (REF) | payer OTHER, SELFPAY ==
[2023-04-25 14:57] LABS: Estimated Average Glucose 146 mg/dL; Hemoglobin A1c % 6.7 % (<6.0)
[2023-04-25 15:05] LABS: Alanine Aminotransferase 23 U/L (0-40); Albumin Level 3.8 g/dL (3.5-5.0); Alkaline Phosphatase 104 U/L (39-117); Anion Gap 11 (12-20); Aspartate Amino Transferase 20 U/L (5-37); Bilirubin Direct 0.1 mg/dL (0.0-0.5); Bilirubin Total 0.3 mg/dL (0.0-1.0); Blood Urea Nitrogen 15 mg/dL (9-16); Calcium 8.8 mg/dL (8.4-10.2); Carbon Dioxide 26 mmol/L (22-29); Chloride 102 mmol/L (96-108); Estimated Glomerular Filt Rate > 60; Glucose Fasting 219 mg/dL (60-99); Potassium 3.9 mmol/L (3.3-5.1); Sodium 135 mmol/L (135-145); Total Protein 7.1 g/dL (6.5-8.0)
[2023-04-25 15:20] LABS: Vitamin B12 626 pg/mL (200-900)
[2023-04-25 15:22] LABS: TSH reflex Free T4 1.39 uIU/mL (0.32-4.0)
== END 2023-04-25 09:40 | disposition home or self-care (01) ==
LOC: HO.CHCLDS 09:39
PROVIDERS: Visit Provider Internal Medicine
DX: G89.4 Chronic pain syndrome (principal); R63.5 Abnormal weight gain; M19.09 Primary osteoarthritis, other specified site; E11.9 Type 2 diabetes mellitus without complications
CPT/HCPCS: 36415; 80048; 80076; 82607; 83036; 84443

== ENCOUNTER 2023-12-08 10:22 | Outpatient (REF) | payer OTHER, SELFPAY ==
[2023-12-08 15:02] LABS: Uric Acid 4.2 mg/dL (3.4-7.0)
== END 2023-12-08 10:23 | disposition home or self-care (01) ==
LOC: HO.CHCLDS 10:22
PROVIDERS: Visit Provider Internal Medicine
DX: L84 Corns and callosities (principal); M79.674 Pain in right toe(s); M79.675 Pain in left toe(s)
CPT/HCPCS: 36415; 84550

== ENCOUNTER 2024-01-30 10:07 | Emergency (ER) | payer OTHER, SELFPAY ==
--- NOTE | ~2024-01-30 | XR_ITS ---
EXAMINATION: XR ELBOW, RIGHT CLINICAL INFORMATION: Right elbow pain, swelling and redness, increase in temperature for 2 weeks COMPARISON: None available. TECHNIQUE: AP and lateral views of the right elbow. FINDINGS: BONES: Bony structures are intact. There is no focal bone destruction or periosteal reaction seen. JOINTS: Alignment of joints is normal. SOFT TISSUE: Soft tissue is normal. No radiopaque foreign body or abnormal air collection is seen. XR/XR elbow RT 2V IMPRESSION: 1. Normal x-rays of right elbow. No fracture or dislocation or signs of osteomyelitis are found.
[2024-01-30 10:24] VITALS: BP 123/73; PULSE 87; RESP 20; TEMP 37; O2SAT 97; BMI 38.1
[2024-01-30 10:47] LABS: MANUAL DIFF FLAG NO
[2024-01-30 10:48] LABS: Basophils Percent Auto 0.3 % (0-2); Eosinophils Absolute Auto 0.1 X10*3/uL (0.0-0.4); Eosinophils Percent Auto 0.7 % (0-4); Hematocrit 41.3 % (42.0-52.0); Hemoglobin 13.4 g/dl (14.0-18.0); Imm Gran Abs Auto 0.04 X10*3/uL (0.00-0.03); Imm Gran Pct Auto 0.4 % (0.0-0.4); Lymphocytes Absolute Auto 1.1 X10*3/uL (1.2-4.9); Lymphocytes Percent Auto 11.7 % (20-40); Mean Corpuscular HGB Conc 32.4 g/dl (31.0-36.0); Mean Corpuscular Hemoglobin 28.9 pg (27.0-33.0); Mean Platelet Volume 10.1 fL (9.4-12.4); Monocytes Absolute Auto 0.6 X10*3/uL (0.1-1.2); Monocytes Percent Auto 6.6 % (2-11); Neutrophils Absolute Auto 7.4 x10*3/uL (2.0-8.3); Neutrophils Percent Auto 80.3 % (45-73); Platelet Count 208 X10*3/uL (160-400); Red Blood Count 4.64 X10*6/uL (4.60-5.80); Red Cell Distribution Width 14.1 % (11.0-16.0); White Blood Count 9.2 X10*3/uL (4.8-10.8)
[2024-01-30 11:03] LABS: Lactic Acid 1.6 mmol/L (0.5-2.0)
[2024-01-30 11:08] LABS: Alanine Aminotransferase 23 U/L (0-40); Albumin Level 3.7 g/dL (3.5-5.0); Alkaline Phosphatase 103 U/L (39-117); Anion Gap 9 (12-20); Aspartate Amino Transferase 16 U/L (5-37); Bilirubin Total 0.2 mg/dL (0.0-1.0); Blood Urea Nitrogen 16 mg/dL (9-16); Calcium 9.3 mg/dL (8.4-10.2); Carbon Dioxide 29 mmol/L (22-29); Chloride 103 mmol/L (96-108); Creatinine Clr Calc Pharmacy 109.5; Estimated Glomerular Filt Rate > 60; Glucose Random 223 mg/dL (60-115); Potassium 4.4 mmol/L (3.3-5.1); Sodium 137 mmol/L (135-145); Total Protein 7.4 g/dL (6.5-8.0); Uric Acid 3.8 mg/dL (3.4-7.0)
--- NOTE | 2024-01-30 11:32 | ED_ITS ---
HPI - Wound/Laceration General Chief Complaint: Wound/Laceration Stated Complaint: Lac R arm Time Seen by Provider: 01/30/24 10:43 Source: patient and RN notes reviewed Mode of arrival: ambulatory Limitations: no limitations History of Present Illness ED Provider: Mary Coleman PA-C HPI narrative: This is a 58-year-old male, with a history of diabetes, who presents emergency department with complaints of right elbow pain and laceration. Patient states that for about 2 weeks his right elbow has been red and painful. He states that he had no injury trauma he states that today he accidentally struck his right elbow on a car door caused a laceration to the area. No history of gout he denies taking any medications at home to treat his current symptoms. Unsure when his last tetanus shot was. Other complaints or concerns this Onset (ago): day(s) Place: home Patient tetanus UTD: No Context: accidental Associated symptoms: pain Related Data Home Medications ?Medication ?Instructions ?Recorded ?Confirmed albuterol sulfate 90 mcg/actuation 2 puff inhalation Q6H PRN Wheezing 07/28/20 03/14/23 aerosol inhaler (ProAir HFA) bupropion HCl 150 mg tablet,12 hr 150 mg PO BID 07/28/20 03/14/23 sustained-release (Wellbutrin SR) fluticasone 250 mcg-salmeterol 50 1 inh inhalation BID 07/28/20 03/14/23 mcg/dose blistr powdr for inhalation (Wixela Inhub) ipratropium 20 mcg-albuterol 100 1 puff inhalation QID 07/28/20 03/14/23 mcg/actuation mist for inhalation (Combivent Respimat) omeprazole 20 mg capsule,delayed 20 mg PO DAILY 07/28/20 03/14/23 release polyethylene glycol 3350 8.5 gram 8.5 g PO DAILY PRN Constipation 07/28/20 03/14/23 oral powder packet risperidone 2 mg tablet 2 mg PO BEDTIME 07/28/20 03/14/23 lidocaine 5 % topical ointment 5 appl topical DAILY 09/03/20 03/14/23 pantoprazole 20 mg tablet,delayed 1 tab PO DAILY 09/03/20 03/14/23 release propranolol 20 mg tablet 1 tab PO BID 09/03/20 03/14/23 trazodone 300 mg tablet 1 tab PO BEDTIME 09/03/20 03/14/23 methadone 10 mg tablet 52 mg PO DAILY 11/19/20 03/14/23 gabapentin 100 mg capsule 100 mg PO BEDTIME 09/30/21 03/14/23 celecoxib 200 mg capsule 0 mg PO 11/24/22 03/14/23 ferrous sulfate 325 mg (65 mg 325 mg PO Q OTHER DAY 11/24/22 03/14/23 iron) tablet (FeroSul) Previous Rx's ?Medication ?Instructions ?Recorded dexamethasone 1 mg tablet 1 mg PO DAILY #1 tab 08/23/22 testosterone 1 % (50 mg/5 gram) 1 packet transdermal DAILY 30 days 09/30/22 transdermal gel packet (AndroGel) #150 grams cephalexin 500 mg capsule 500 mg PO QID 7 days #28 caps 01/30/24 doxycycline hyclate 100 mg capsule 100 mg PO BID 7 days #14 caps 01/30/24 Allergies Allergy/AdvReac Type Severity Reaction Status Date / Time No Known Allergies Allergy Verified 01/30/24 10:27 [No Known Allergies*] Review of Systems 2 Review of Systems: Yes all other systems are reviewed and are negative Constitutional: Constitutional: Reports as per [facility] Past Medical History Medical History Colon polyps COPD (chronic obstructive pulmonary disease) Goiter Hepatitis C Hypogonadism Hypogonadism in male Hypogonadotropic hypogonadism Myalgia VICTORIA (obstructive sleep apnea) Osteoarthritis Osteopenia Pituitary microadenoma Sleep apnea Thrombocytopenia Vitamin D deficiency Surgical History Hx of carpal tunnel repair Family History Family History Maternal Aunt Cancer Father Diabetes Paternal Aunt Diabetes Paternal Aunt Diabetes Social History Social History Alcohol intake: former Patient Tobacco Use Status: Current everyday Tobacco user Cigarette Packs Per Day: 10 Years Smoked: 45 Substance Use Type: Prescription Drugs Advance Directives: No Advance Directives Information Provided: Yes Do you have a plan to hurt others: No Plan Physical Exam 2 Vital Signs: Vital Signs: Last Vital Signs Temp 98.6 F 07/08/24 15:45 Pulse 87 01/30/24 15:45 Resp 20 01/30/24 15:45 BP 123/73 01/30/24 15:45 Pulse Ox 97 01/30/24 15:45 O2 Del Method Room Air 01/30/24 15:45 BMI result Body Mass Index 38.1 Const: General: cooperative, comfortable and no acute distress O rientation/consciousness: patient oriented x3 Limitations: no limitations HEENT: Head: Yes normal to inspection, Yes normocephalic and Yes atraumatic Ears: hearing grossly normal bilaterally General nose exam: Normal external nose present Face and sinus: Yes normal facial exam Mouth: Normal oral and palatal mucosa present, oropharynx normal and moist mucous membranes Throat: Yes posterior oropharynx normal Eyes: General: appearance normal, both eyes and all related structures E yelids: Yes eyelids normal Conjunctivae: conjunctivae normal Sclerae: s clerae normal Pupils: Equal, round and reactive pupils present EOM: EOMs intact bilaterally Neck: Neck: Yes normal visual inspection, Yes full ROM and Yes no lymphadenopathy Lymphatic: no lymphadenopathy noted Chest: Chest palpation & inspection: normal inspection of the chest Resp: Effort & Inspection: normal respiratory effort and able to speak in complete sentences Auscultation: clear to auscultation bilaterally, no crackles, no rales, no rhonchi and no wheezes Cardio: Rate: regular rate Rhythm: regular rhythm Heart sounds: S1 normal heart sound present and S2 normal heart sound present GI: Inspection: Yes normal to inspection Skin: General skin exam: no rashes or lesions noted Trauma: no lacerations or abrasions Wounds: no wounds Neuro: General: patient oriented x3 and moves all extremities Cranial nerves: Yes Equal, round and reactive pupils present Extrem: Other: Right elbow, is moderately edematous and erythematous, with 2-1/2 cm x 2 cm irregular laceration, active bleeding noted. General: Yes normal to inspection Right upper extremity: normal to inspection Left upper extremity: normal to inspection Right lower extremity: normal to inspection Left lower extremity: normal to inspection Medications Administered Discontinued Medications Generic Name Dose Route Start Last Admin Trade Name Freq PRN Reason Stop Dose Admin Cephalexin HCl 500 mg 01/30/24 15:07 01/30/24 15:21 Cephalexin 500 Mg Capsule PO 01/30/24 15:08 500 mg ONCE ONE Administration Diphtheria/Tetanus/Acell Pertussis 0.5 ml 01/30/24 15:21 01/30/24 15:22 Diphth,Pertus(Acell),Tet Adult 0.5 Ml Syringe IM 01/30/24 15:22 0.5 ml .ONCE ONE Administration Doxycycline Monohydrate 100 mg 01/30/24 15:07 01/30/24 15:21 Doxycycline Monohydrate 100 Mg Capsule PO 01/30/24 15:08 100 mg ONCE ONE Administration Lidocaine HCl 5 ml 01/30/24 13:55 01/30/24 14:14 Lidocaine Hcl 1 % Mpf 5 Ml Vial INFILTRATI 01/30/24 13:56 5 ml ONCE ONE Administration Medical Decision Making Medical Decision Making [facility] Narrative: This is a 58 old male who presents emergency department complaints of right elbow pain and laceration. Patient has had ongoing right elbow pain, redness, and swelling for the last 2 weeks and he accidentally struck his right elbow on a car door today. On arrival, vital signs within normal limits. He is full range of motion of the right elbow. Attempted to close wound with sutures, see procedure note for further detail. This was not able to be performed as skin is too taut. The area was dressed with Surgicel, and non stick dressing. Patient discharged on Keflex and doxycycline. Given strict return precautions. He understands agrees with plan. Patient stable for discharge Differential Diagnosis Differential Diagnoses: The differential diagnosis associated with the presentation includes Infected bursitis, laceration, bursitis, septic arthritis Lab Data [facility] Lab Attestation statement: I reviewed the patient's lab results. No leukocytosis, normocytic anemia noted lactic acid 1.6, uric acid 3.8, random glucose 223 01/30/24 10:42 01/30/24 10:42 Labs: Lab Results 01/30/24 Range/Units 10:42 WBC 9.2 (4.8-10.8) X10*3/uL RBC 4.64 (4.60-5.80) X10*6/uL Hgb 13.4 L (14.0-18.0) g/dl Hct 41.3 L (42.0-52.0) % MCV 89.0 (80.0-98.0) fL MCH 28.9 (27.0-33.0) pg MCHC 32.4 (31.0-36.0) g/dl RDW 14.1 (11.0-16.0) % Plt Count 208 (160-400) X10*3/uL MPV 10.1 (9.4-12.4) fL Immature Gran % (Auto) 0.4 (0.0-0.4) % Neut % (Auto) 80.3 H (45-73) % Lymph % (Auto) 11.7 L (20-40) % [place] % (Auto) 6.6 (2-11) % Eos % (Auto) 0.7 (0-4) % Baso % (Auto) 0.3 (0-2) % Lymph # (Auto) 1.1 L (1.2-4.9) X10*3/uL [place] # (Auto) 0.6 (0.1-1.2) X10*3/uL Eos # (Auto) 0.1 (0.0-0.4) X10*3/uL Baso # (Auto) 0.0 (0.0-0.2) X10*3/uL Abs Immat Gran (auto) 0.04 H (0.00-0.03) X10*3/uL Absolute Neuts (auto) 7.4 (2.0-8.3) x10*3/uL Absolute Nucleated RBC 0.000 (0.0-0.012) X10*3/uL Nucleated RBC % (auto) 0.0 (0.0-0.2) /100WBC Sodium 137 (135-145) mmol/L Potassium 4.4 (3.3-5.1) mmol/L Chloride 103 (96-108) mmol/L Carbon Dioxide 29 (22-29) mmol/L Anion Gap 9 L (12-20) BUN 16 (9-16) mg/dL Creatinine 0.86 (0.5-1.4) mg/dL Estim Creat Clear Calc 109.5 Estimated GFR > 60 Random Glucose 223 H (60-115) mg/dL Lactic Acid 1.6 (0.5-2.0) mmol/L Uric Acid 3.8 (3.4-7.0) mg/dL Calcium 9.3 (8.4-10.2) mg/dL Total Bilirubin 0.2 (0.0-1.0) mg/dL AST 16 (5-37) U/L ALT 23 (0-40) U/L Alkaline Phosphatase 103 (39-117) U/L Total Protein 7.4 (6.5-8.0) g/dL Albumin 3.7 (3.5-5.0) g/dL Radiology Impression Discussion of test interpretation with radiology: I have reviewed the radiologist's reading. Radiologist Impression: XR/XR elbow RT 2V IMPRESSION: 1. Normal x-rays of right elbow. No fracture or dislocation or signs of osteomyelitis are found. External Record Review External record reviewed: Inpatient record, Office record, Outpatient record, Prior outpatient labs, Prior outpatient radiology, Primary care record and Outside ED record Procedures Procedure Narrative Procedure Narrative: Wound was cleansed using Betadine. Local anesthesia was used with 1% lidocaine. I attempted to apply 1 suture into the wound however wound was unable to be well approximated due to skin tightness due to edema from bursitis. He has slight bleeding from the region therefore Surgicel was applied to the wound, and hemostasis was achieved. Patient tolerated procedure well without any complications or concerns. Discharge Plan Discharge Clinical Impression: Bursitis, Laceration of elbow, right Patient Disposition: Home, Self-Care Instructions: Laceration (ED), Elbow Bursitis (ED) Additional Instructions: Were seen in the emergency department after injuring her right elbow. We attempted to suture your right elbow however you had too much swelling. We applied something called hemostat to the wound. This will eventually absorb. Do not submerge wound. Keep wound clean and dry. I am prescribing you to antibiotics, please take full course even if your feeling better Use Checo wrap to the area to reduce swelling. Apply ice to the area to help with the swelling. If any new or worsening symptoms occur including but not limited to inability to flex and extend your right arm, fevers, chills, increased redness, swelling, please return for re-evaluation Prescriptions: New doxycycline hyclate 100 mg capsule 100 mg PO BID 7 Days Qty: 14 0RF cephalexin 500 mg capsule 500 mg PO QID 7 Days Qty: 28 0RF No Action testosterone [AndroGel] 1 % (50 mg/5 gram) gel in packet 1 packet transdermal DAILY 30 Days Qty: 150 2RF pantoprazole 20 mg tablet,delayed release (DR/EC) 1 tab PO DAILY trazodone 300 mg tablet 1 tab PO BEDTIME propranolol 20 mg tablet 1 tab PO BID lidocaine 5 % ointment 5 appl topical DAILY omeprazole 20 mg capsule,delayed release(DR/EC) 20 mg PO DAILY bupropion HCl [Wellbutrin SR] 150 mg tablet sustained-release 12 hr 150 mg PO BID risperidone 2 mg tablet 2 mg PO BEDTIME polyethylene glycol 3350 8.5 gram powder in packet 8.5 g PO DAILY PRN (Reason: Constipation) fluticasone propion-salmeterol [Wixela Inhub] 250-50 mcg/dose blister with device 1 inh inhalation BID Combivent Respimat 20-100 mcg/actuation mist 1 puff inhalation QID Rx Instructions: space evenly during waking hours albuterol sulfate [ProAir HFA] 90 mcg/actuation HFA aerosol inhaler 2 puff inhalation Q6H PRN (Reason: Wheezing) methadone 10 mg tablet 52 mg PO DAILY gabapentin 100 mg capsule 100 mg PO BEDTIME dexamethasone 1 mg tablet 1 mg PO DAILY Qty: 1 0RF celecoxib 200 mg capsule 0 mg PO ferrous sulfate [FeroSul] 325 mg (65 mg iron) tablet 325 mg PO Q OTHER DAY Interventions: ED Discharge Assessment Last Done: 01/30/24 15:45 Discharge Date/Time: 01/30/24 15:45 Print Language: Turkmen
[2024-01-30] MEDS: Lidocaine HCl 1 % MPF 5 ML VIAL INFILTRATI (14:14)
[2024-01-30] MEDS: Doxycycline Monohydrate 100 MG CAPSULE PO (15:21)
[2024-01-30] MEDS: cephALEXin 500 MG CAPSULE PO (15:21)
[2024-01-30] MEDS: Diphth,Pertus(ACell),Tet Adult 0.5 ML SYRINGE IM (15:22)
[2024-01-30 15:45] VITALS: BP 123/73; PULSE 87; RESP 20; TEMP 37; O2SAT 97
== END 2024-01-30 15:45 | disposition home or self-care (01) ==
PROVIDERS: Emergency Provider Emergency Medicine; PCP Internal Medicine
DX: S51.021A Laceration with foreign body of right elbow, initial encounter (principal); M70.31 Other bursitis of elbow, right elbow; M25.521 Pain in right elbow; F17.200 Nicotine dependence, unspecified, uncomplicated; X58.XXXA Exposure to other specified factors, initial encounter; Y93.9 Activity, unspecified; Y92.9 Unspecified place or not applicable; Y99.8 Other external cause status; Z79.899 Other long term (current) drug therapy; Z23 Encounter for immunization
CPT/HCPCS: 12001; 36415; 73070; 80053; 83605; 84550; 85025; 90471; 90715; 99282; 99284

== ENCOUNTER 2024-01-31 07:47 | Outpatient (AMB) | payer OTHER, SELFPAY ==
[2024-01-31 07:59] VITALS: BP 130/70; PULSE 85; BMI 38.4
--- NOTE | 2024-01-31 07:59 | A.OFFVIS_ITS ---
Vital Signs 01/31/24 07:59 Height 5 ft 7 in Weight 245 lb 2.464 oz BMI 38.4 BP 130/70 Blood Pressure Location Lt brachial Position Sitting Pulse 85 Pulse Source Pulse Oximeter Intake Visit Reasons: Pituitary macroadenoma-confirmed Intake Note: Patient present today for Pituitary macroadenoma follow up visit. Last seen by Dr. Castro on 03/14/23. 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 Required: Yes 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 Language: Persian Information Interpreted: non-clinical & clinical Accompanied by: Self / Same As Patient Allergies No Known Allergies [No Known Allergies*] Allergy (Verified 01/31/24 08:10) Medication List - Last Reconciled 01/31/24 by Grey Tinajero MD albuterol sulfate 90 mcg/actuation (ProAir HFA) 2 puffs inhalation Q6H PRN bupropion HCl SR (Wellbutrin SR) 150 mg PO BID celecoxib 0 mg PO cephalexin 500 mg PO QID 7 days dexamethasone 1 mg PO DAILY doxycycline hyclate 100 mg PO BID 7 days ferrous sulfate (FeroSul) 325 mg PO Q OTHER DAY fluticasone propion-salmeterol 250-50 mcg/dose (Wixela Inhub) 1 inh inhalation BID gabapentin 100 mg PO BEDTIME ipratropium-albuterol 20-100 mcg/actuation (Combivent Respimat) 1 puff inhalation QID lidocaine 5% 5 appl topical DAILY methadone 52 mg PO DAILY omeprazole 20 mg PO DAILY pantoprazole 1 tab PO DAILY polyethylene glycol 3350 8.5 grams PO DAILY PRN propranolol 1 tab PO BID risperidone 2 mg PO BEDTIME testosterone (AndroGel) 1 packet transdermal DAILY 30 days trazodone 1 tab PO BEDTIME HPI Comments Details: 58 YO Male with PMHx Hypogonadism who is seen in F/U for a pituitary microade noma and hypogonadism. First diagnosed with Hypogonadism in the early 1999's. Was started on Testosterone supplementation with androgel. Stopped this in 2018. He is unsure why this was stopped. We checked labs after our initial visit, and this revealed hypogonadotropic hypogonadism. Pituitary MRI was checked 01/28/21 which revealed a 0.9 cm pituitary microadenoma. There did not appear to be encroachment on the optic apparatus. A full pituitary panel was checked which confirmed hypogonadotropic hypogonadism, but was otherwise WNL. Prolactin was WNL, but unfortunately dilution was initially not assessed. Prolactin was repeated, including by dilution, and both were WNL. He was started on Androgel 1 packet transdermal daily. Testosterone was at goal on this, but he stopped it of his own accord. Repeat testosterone levels after 2 months off treatment were WNL, so he was not resumed on androgel. Levels were repeated again and now are in hypogonadal range. He was again resumed on androgel 1 packet transdermal daily, but has not yet repeated labs. Pituitary MRI was repeated 02/03/2023 and was unchanged from prior. He does complain of headaches, but denies blurred vision and double vision. He does report pressure/pain in the right eye. He was referred to Ophtho and underwent a visual field exam 05/28/2021. Visual castillo were WNL at that time. He was asked to F/U again with optho but has not yet done so. He has an appointment for January. He was also referred to neurosurgery due to his headaches, and has his appointment coming up next month. He did have a DXA which reveals osteopenia at all sites. with children who were conceived spontaneously. He does have VICTORIA and uses his CPAP nightly. Denies gynecomastia or galactorrhea. Denies any history of DVT or PE. Pituitary MRI: 02/03/2023 TECHNIQUE: MRI of the brain was obtained using pituitary protocol without and following the administration of 5 mL of Gadavist intravenous contrast. FINDINGS: No focal restricted diffusion is demonstrated to suggest acute or subacute cerebral ischemia. Scattered periventricular and deep white matter T2 FLAIR hyperintensities consistent with mild underlying microangiopathy. Proportional prominence of the ventricles and sulcal spaces without evidence of obstructive hydrocephalus. No abnormal mass effect. No midline shift. Stable appearance of the hypoenhancing lesion inferior to the anterior aspect of the pituitary gland, measuring up to 0.8 x 0.6 x 0.6 cm. This lesion demonstrates T2 hyperintensity. There is no new hyperenhancing lesion demonstrated on post contrast imaging. The pituitary infundibulum is minimally deviated to the right. The suprasellar cistern remains patent. No abnormal mass effect on the optic chiasm. Normal positioning of the cerebellar tonsils. Normal arterial and venous vascular flow voids are present. No abnormal contrast enhancement. Normal, homogeneous marrow signal. Mild mucosal thickening of the paranasal sinuses. No signal abnormalities within the mastoids. MR/MR head/brain wo/w con IMPRESSION: 1.? Stable appearance of a 0.8 cm hypoenhancing lesion inferior to the anterior aspect of the pituitary gland, suggestive of a pituitary microadenoma. 2.? No acute intracranial abnormalities. No additional abnormal intracranial enhancement. 3.? Mild underlying microangiopathy and generalized cerebral volume loss. DXA: 08/24/2022 FINDINGS: AP SPINE L1-L2 (excluding L3 and L4): The data of L1-L4 has been changed to exclude the L3 and L4 vertebral bodies, because degenerative changes at these levels may cause overestimation of lumbar spine density. BMD 0.988 g/cm2, Z-score -2.2, T-score -1.8, osteopenia. LEFT FEMUR, NECK: BMD 0.892 g/cm2, Z-score -1.0, T-score -1.4, osteopenia. LEFT FEMUR, TOTAL: BMD 1.017 g/cm2, Z-score -0.6, T-score -0.6, normal. Labs: Laboratory Tests 03/08/22 03/08/22 08/19/22 09:07 09:07 07:17 Sodium 140 Potassium 4.1 Creatinine 0.85 Estimated GFR > 60 Osmolality Prostate Specific Ag 0.08 25-OH Vitamin D Total 30.6 TSH 1.67 Free T4 2.06 H Total T3 FSH 2.4 Luteinizing Hormone 0.9 L Prolactin Undiluted 5.5 Total Testosterone 21 L Fr Testosterone Dialys 3.8 L Sex Hormone Bind Glob Random Cortisol ACTH 08/19/22 08/19/22 08/19/22 07:17 07:17 07:17 Sodium Potassium Creatinine Estimated GFR Osmolality 293 Prostate Specific Ag 25-OH Vitamin D Total TSH Free T4 Total T3 99 FSH Luteinizing Hormone Prolactin Undiluted Total Testosterone Fr Testosterone Dialys Sex Hormone Bind Glob 28 Random Cortisol ACTH 32 08/19/22 07:17 Sodium Potassium Creatinine Estimated GFR Osmolality Prostate Specific Ag 25-OH Vitamin D Total TSH Free T4 Total T3 FSH Luteinizing Hormone Prolactin Undiluted Total Testosterone Fr Testosterone Dialys Sex Hormone Bind Glob Random Cortisol 16.3 ACTH Not taking testosterone. C/O loss of libido. Decreased muscular mass. Uses CPAP mask . No bone fx . Continues to have headache. [facility] Medical History Colon polyps COPD (chronic obstructive pulmonary disease) Goiter Hepatitis C Hypogonadism Hypogonadism in male Hypogonadotropic hypogonadism Myalgia VICTORIA (obstructive sleep apnea) Osteoarthritis Osteopenia Pituitary microadenoma Sleep apnea Thrombocytopenia Vitamin D deficiency Surgical History Hx of carpal tunnel repair Family History Maternal Aunt Cancer Father Diabetes Paternal Aunt Diabetes Paternal Aunt Diabetes Social History Alcohol intake: former Patient Tobacco Use Status: Current everyday Tobacco user Cigarette Packs Per Day: 10 Years Smoked: 45 Substance Use Type: Prescription Drugs Physical Exam Const Other: Rectal examination shows normal size prostate without any masses palpated Assessment & Plan Assessment & Plan (1) Hypogonadotropic hypogonadism: Code(s): E23.0 - Hypopituitarism Category: Medical Plan: This is a 58-year-old male with a history of secondary hypogonadism. He was being replaced on testosterone gel 50 g 1 packet per day. Plan is to reinitiate testosterone. Will recheck testosterone, PSA and CBC in about 6 weeks' time. Went over side effects of testosterone with patient including but not limited to enlargement of the prostate with unmasking of prostate cancer, polycythemia and DVT (2) Pituitary microadenoma: Code(s): D35.2 - Benign neoplasm of pituitary gland Category: Medical Plan: History of pituitary micro- adenoma appears to be non secretory but patient did not have testing done for hypercortisolnemia . Will check 24 hour urine free cortisol and creatinine. Will also repeat MRI of the pituitary considering patient's continued presence of headache and occasional loss of vision Orders: Orders Creatinine, 24 Hr Group Today D35.2 - Benign neoplasm of pituitary gland MR head/brain wo/w con Today D35.2 - Benign neoplasm of pituitary gland Cortisol, Free 24Hr Urine Today D35.2 - Benign neoplasm of pituitary gland Medications: Refilled testosterone (AndroGel) 1 packet transdermal DAILY 30 days 150 grams 2RF E23.0 - Hypopituitarism Coding Level of Care Code Est Pt Level 3 (15365) Diagnoses Hypogonadotropic hypogonadism E23.0 Pituitary microadenoma D35.2
== END 2024-01-31 08:35 | disposition home or self-care (01) ==
PROVIDERS: PCP Internal Medicine; Visit Provider Internal Medicine Endocrinology, Diabetes & Metabolism
DX: E23.0 Hypopituitarism (principal); D35.2 Benign neoplasm of pituitary gland
CPT/HCPCS: 99213

== ENCOUNTER → 2024-01-31 07:47 | Outpatient (BNVA) | payer OTHER, SELFPAY | PROVIDERS: PCP Internal Medicine; Visit Provider Internal Medicine Endocrinology, Diabetes & Metabolism | DX: E23.0 Hypopituitarism (principal); D35.2 Benign neoplasm of pituitary gland | CPT/HCPCS: 99212 ==

== ENCOUNTER 2024-02-06 09:57 | Outpatient (REF) | payer OTHER, SELFPAY ==
[2024-02-06 22:00] LABS: Microalbumin Urine < 5.0 mg/L
== END 2024-02-06 09:58 | disposition home or self-care (01) ==
LOC: HO.CHCLDS 09:57
PROVIDERS: Visit Provider Internal Medicine
DX: E11.9 Type 2 diabetes mellitus without complications (principal)
CPT/HCPCS: 82570

== ENCOUNTER 2024-03-25 12:36 | Emergency (ER) | payer OTHER, SELFPAY ==
[2024-03-25 12:45] VITALS: BP 125/71; PULSE 88; RESP 16; TEMP 36.9; O2SAT 94; BMI 37.0
--- NOTE | 2024-03-25 12:45 | ED_ITS ---
HPI - Extremity Injury (Upper) General Chief Complaint: Extremity Problem Stated Complaint: l elbow pain Time Seen by Provider: 03/25/24 12:47 Source: patient, RN notes reviewed and old records reviewed Mode of arrival: ambulatory History of Present Illness ED Provider: Gisselle Hanley PA-C HPI narrative: 58-year-old male with a past medical history goiter, thrombocytopenia, VICTORIA, COPD, presenting to the ED complaining of atraumatic left elbow pain and swelling x1 month. Reports history of bursitis to contralateral side. Denies fever, chills Related Data Home Medications ?Medication ?Instructions ?Recorded ?Confirmed albuterol sulfate 90 mcg/actuation 2 puff inhalation Q6H PRN Wheezing 07/28/20 03/14/23 aerosol inhaler (ProAir HFA) bupropion HCl 150 mg tablet,12 hr 150 mg PO BID 07/28/20 03/14/23 sustained-release (Wellbutrin SR) fluticasone 250 mcg-salmeterol 50 1 inh inhalation BID 07/28/20 03/14/23 mcg/dose blistr powdr for inhalation (Wixela Inhub) ipratropium 20 mcg-albuterol 100 1 puff inhalation QID 07/28/20 03/14/23 mcg/actuation mist for inhalation (Combivent Respimat) omeprazole 20 mg capsule,delayed 20 mg PO DAILY 07/28/20 03/14/23 release polyethylene glycol 3350 8.5 gram 8.5 g PO DAILY PRN Constipation 07/28/20 03/14/23 oral powder packet risperidone 2 mg tablet 2 mg PO BEDTIME 07/28/20 03/14/23 lidocaine 5 % topical ointment 5 appl topical DAILY 09/03/20 03/14/23 pantoprazole 20 mg tablet,delayed 1 tab PO DAILY 09/03/20 03/14/23 release propranolol 20 mg tablet 1 tab PO BID 09/03/20 03/14/23 trazodone 300 mg tablet 1 tab PO BEDTIME 09/03/20 03/14/23 methadone 10 mg tablet 52 mg PO DAILY 11/19/20 03/14/23 gabapentin 100 mg capsule 100 mg PO BEDTIME 09/30/21 03/14/23 celecoxib 200 mg capsule 0 mg PO 11/24/22 03/14/23 ferrous sulfate 325 mg (65 mg 325 mg PO Q OTHER DAY 11/24/22 03/14/23 iron) tablet (FeroSul) Previous Rx's ?Medication ?Instructions ?Recorded dexamethasone 1 mg tablet 1 mg PO DAILY #1 tab 08/23/22 cephalexin 500 mg capsule 500 mg PO QID 7 days #28 caps 01/30/24 doxycycline hyclate 100 mg capsule 100 mg PO BID 7 days #14 caps 01/30/24 testosterone 1 % (50 mg/5 gram) 1 packet transdermal DAILY 30 days 01/31/24 transdermal gel packet (AndroGel) #150 grams Allergies Allergy/AdvReac Type Severity Reaction Status Date / Time No Known Allergies Allergy Verified 03/25/24 12:48 [No Known Allergies*] Review of Systems Review of Systems: Constitutional: No Fever, No Chills Cardiovascular: No Chest Pain, No SOB Respiratory: No Cough, No Sputum, No Wheezing Musculoskeletal: + joint pain, No Myalgias, + Joint Swelling Skin: No Skin Lesions, No rash Neuro: No Weakness, No Numbness, No Paresthesias Yes all other systems are reviewed and are negative Constitutional: Constitutional: Reports as per [facility] Past Medical History Attestation statement: The following information was validated with the patient. Source: old records reviewed Medical History Osteopenia Goiter Pituitary microadenoma Hypogonadotropic hypogonadism Hypogonadism in male Vitamin D deficiency Hypogonadism Thrombocytopenia Osteoarthritis Myalgia Sleep apnea Colon polyps Hepatitis C VICTORIA (obstructive sleep apnea) COPD (chronic obstructive pulmonary disease) Surgical History Hx of carpal tunnel repair Family History Family History Maternal Aunt Cancer Father Diabetes Paternal Aunt Diabetes Paternal Aunt Diabetes Social History Social History Alcohol intake: former Patient Tobacco Use Status: Current everyday Tobacco user Cigarette Packs Per Day: 10 Years Smoked: 45 Substance Use Type: Prescription Drugs Advance Directives: No Advance Directives Information Provided: No Physical Exam Vital Signs: Vital Signs: Last Vital Signs Temp 98.5 F 03/25/24 12:45 Pulse 88 03/25/24 12:45 Resp 16 03/25/24 12:45 BP 125/71 03/25/24 12:45 Pulse Ox 94 03/25/24 12:45 O2 Del Method Room Air 03/25/24 12:45 BMI result Body Mass Index 37.0 Const: General: cooperative, healthy appearing and no acute distress Orientation/consciousness: patient oriented x3 Limitations: no limitations HEENT: Head: Yes normal to inspection and Yes atraumatic Ears: hearing grossly normal bilaterally General nose exam: Normal external nose present Face and sinus: Yes normal facial exam Eyes: General: appearance normal, both eyes and all related structures EOM: EOMs intact bilaterally Neck: Neck: Yes normal visual inspection and Yes no meningeal signs Resp: Effort & Inspection: normal respiratory effort and no respiratory distress Cardio: Rate: regular rate Skin: Rashes: no rashes Wounds: no wounds Neuro: General: patient oriented x3, tone normal and no meningeal signs Cranial nerves: Yes CN's II-XII intact bilaterally Gait exam (Neuro): Normal gait present Extrem: Other: + left elbow bursitis. No overlying humphrey thema/warmth. Nontender. Full range of motion intact. Neurovascularly intact distally. No pitting edema. No fluctuance/induration Medical Decision Making Medical Decision Making MDM Narrative: 58-year-old male with a past medical history goiter, thrombocytopenia, VICTORIA, COPD, presenting to the ED complaining of atraumatic left elbow pain and swelling x1 month. On exam VSS, NAD, nontoxic appearing, left elbow consistent with bursitis without overlying cellulitis/infection, no fluctuance/induration or concern for abscess at this time. Unlikely fracture Plan: Checo wrap for compression, PCP follow-up Please refer to course for remaining clinical decision making, interpretation of labs/imaging results, and discussions with consultants and/or family members. Results discussed with patient including worrisome signs and symptoms and strict return precautions, and when to return to the emergency department. They verba lized understanding and feel safe for discharge at this time. Differential Diagnosis Differential Diagnoses: The differential diagnosis associated with the presentation includes As above External Record Review External record reviewed: Inpatient record, Office record, Outpatient record, Prior outpatient labs, Prior outpatient radiology, Primary care record and Outside ED record Tests considered The following testing was considered but not selected: As above Prescription Management I considered prescription management with: Pain Medication and Antibiotic Discharge Plan Discharge Clinical Impression: Bursitis Patient Disposition: Home, Self-Care Instructions: Elbow Bursitis (ED) Additional Instructions: Wear Checo wrap for compression Take Tylenol/ Motrin as needed for pain Very begins to look infected, is red, is warm or increasingly painful return to the emergency department Prescriptions: No Action pantoprazole 20 mg tablet,delayed release (DR/EC) 1 tab PO DAILY trazodone 300 mg tablet 1 tab PO BEDTIME propranolol 20 mg tablet 1 tab PO BID lidocaine 5 % ointment 5 appl topical DAILY doxycycline hyclate 100 mg capsule 100 mg PO BID 7 Days Qty: 14 0RF cephalexin 500 mg capsule 500 mg PO QID 7 Days Qty: 28 0RF omeprazole 20 mg capsule,delayed release(DR/EC) 20 mg PO DAILY bupropion HCl [Wellbutrin SR] 150 mg tablet sustained-release 12 hr 150 mg PO BID risperidone 2 mg tablet 2 mg PO BEDTIME polyethylene glycol 3350 8.5 gram powder in packet 8.5 g PO DAILY PRN (Reason: Constipation) fluticasone propion-salmeterol [Wixela Inhub] 250-50 mcg/dose blister with d evice 1 inh inhalation BID Combivent Respimat 20-100 mcg/actuation mist 1 puff inhalation QID Rx Instructions: space evenly during waking hours albuterol sulfate [ProAir HFA] 90 mcg/actuation HFA aerosol inhaler 2 puff inhalation Q6H PRN (Reason: Wheezing) methadone 10 mg tablet 52 mg PO DAILY gabapentin 100 mg capsule 100 mg PO BEDTIME dexamethasone 1 mg tablet 1 mg PO DAILY Qty: 1 0RF celecoxib 200 mg capsule 0 mg PO ferrous sulfate [FeroSul] 325 mg (65 mg iron) tablet 325 mg PO Q OTHER DAY testosterone [AndroGel] 1 % (50 mg/5 gram) gel in packet 1 packet transdermal DAILY 30 Days Qty: 150 2RF Referrals: Physician,Unknown J [Physician] - Discharge Date/Time: 03/25/24 13:08 Print Language: Serbian
== END 2024-03-25 13:08 | disposition home or self-care (01) ==
PROVIDERS: Emergency Provider Emergency Medicine; PCP Internal Medicine
DX: M71.522 Other bursitis, not elsewhere classified, left elbow (principal)
CPT/HCPCS: 99281; 99282

== ENCOUNTER → 2024-04-03 10:05 | Outpatient (RCR) | payer OTHER, SELFPAY ==
[2020-09-03 08:18] VITALS: BP 123/61; PULSE 64; RESP 12; TEMP 36.1; O2SAT 97; BMI 34.4
--- NOTE | 2020-09-03 08:27 | PM.HEMONCPN ---
Medical Summary - Medical Summary Date of Service: 09/03/20 Chief complaint: Skin bruising Medical Summary: Diagnosis: Easy bruising/thrombocytopenia/chronic hepatitis-C status post interferon therapy Intermittent thrombocytopenia with platelet counts ranging from 67 to 176 K over the years. Anemia with hemoglobin of 12.8 in November 2018. Previously in April 2018 it was 13.8. Normal iron studies, normal vitamin B12 and folate levels, serum protein electrophoresis and immunofixation was negative. DREW negative in 2017. Successful interferon therapy for chronic hepatitis-C. Normal kidney and liver functions. CT abdomen and pelvis in 2018 showed no hepatosplenomegaly. Normal coagulation tests. Skin bruising of upper extremities and trunk since 2016. No family history of bleeding disorder. Hematological workup showed normal coagulation tests, negative von Willebrand's testing. Interval History Interval history: Patient is here in follow-up. He is doing well and has no new complaints other than easy skin bruising. It only happens on his extremities with minimal trauma. He denies any changes to his skin with exposure to sun or cold. He denies gum bleed, nose bleed, hematuria or hematochezia. He has had previous surgeries and colon biopsies without any history of bleeding. There is no family history of bleeding disorder. He denies being on any new medications, no joint complaints, body aches, loss of appetite or weight loss. Review of Systems - Constitutional Reports as per HPI, Reports no additional constitutional complaints - Cardiovascular Reports no additional cardiovascular complaints - Respiratory Reports no additional respiratory complaints - Gastrointestinal Reports no additional gastrointestinal complaints [facility] Medical History: Medical History (Last Updated 09/03/20 @ 07:49 by Noemy Reynoso) Colon polyps COPD (chronic obstructive pulmonary disease) Hepatitis C Myalgia VICTORIA (obstructive sleep apnea) Osteoarthritis Sleep apnea Thrombocytopenia Family History: Family History (Last Updated 09/03/20 @ 08:22 by Noemy Reynoso) Maternal Aunt Cancer Father Diabetes Paternal Aunt Diabetes Paternal Aunt Diabetes Surgical History: Surgical History (Last Updated 09/03/20 @ 08:21 by Noemy Reynoso) Hx of carpal tunnel repair Social History: Social History (Last Updated 09/03/20 @ 08:23 by Noemy Reynoso) Alcohol History: Alcohol intake: former Alcohol History Details: Alcohol intake frequency: does not drink Tobacco History: Smoking Status: Current every day smoker Tobacco Type: Cigarette Years Smoked: 45 Substance Use History: Use of substances other than those prescribed or required for medical reasons: No Smoking status: Current every day smoker Oncology Screenings - ECOG Performance Status ECOG Performance Status: 0 Home Medications and Allergies Home Medications Medication Instructions Recorded Confirmed Type albuterol sulfate 90 mcg/actuation 2 puff INHALATION Q6H PRN 07/28/20 09/03/20 History aerosol inhaler bupropion HCl 150 mg tablet,12 hr 150 mg PO BID 07/28/20 09/03/20 History sustained-release fluticasone 250 mcg-salmeterol 50 1 inh INHALATION BID 07/28/20 09/03/20 History mcg/dose blistr powdr for inhalation ipratropium 20 mcg-albuterol 100 1 puff INHALATION QID 07/28/20 09/03/20 History mcg/actuation mist for inhalation methadone 10 mg tablet 55 mg PO DAILY tab 07/28/20 09/03/20 History omeprazole 20 mg capsule,delayed 20 mg PO DAILY 07/28/20 09/03/20 History release polyethylene glycol 3350 8.5 gram 8.5 g PO DAILY PRN 07/28/20 09/03/20 History oral powder packet risperidone 2 mg tablet 2 mg PO BEDTIME 07/28/20 09/03/20 History gabapentin 1 cap PO BEDTIME 09/03/20 09/03/20 History lidocaine TOPICAL 09/03/20 History nabumetone 1 tab PO BID 09/03/20 09/03/20 History pantoprazole 1 tab PO DAILY 09/03/20 09/03/20 History propranolol 1 tab PO BID 09/03/20 09/03/20 History trazodone 1 tab PO BEDTIME 09/03/20 09/03/20 History Allergies Allergy/AdvReac Type Severity Reaction Status Date / Time No Known Allergies Allergy Verified 07/28/20 09:57 [No Known Allergies*] Exam Vital signs: Vital Signs Temp 97.0 F 09/03/20 08:18 Pulse 64 09/03/20 08:18 Resp 12 09/03/20 08:18 BP 123/61 09/03/20 08:18 Pulse Ox 97 09/03/20 08:18 Intake & Output 09/02/20 09/03/20 09/03/20 18:59 06:59 18:59 Other: Weight 99.8 kg Weight in Grams [id number] Weight 99.8 kg Body Mass Index 34.4 - Constitutional Present: no acute distress - Routine HEENT Exam Head: Present: normal inspection Eye: Present: EOMI - Routine Neck Exam Absent: lymphadenopathy - Routine Respiratory Exam Present: CTAB - Routine Cardiovascular Exam Cardiovascular: Present: RRR, S1, S2 - Routine Skin Exam Present: intact Comments: Old healed bruises on forearms, no swelling. Nontender to palpation. Data - Labs Labs: Laboratory Tests 04/02/20 13:39 WBC 6.4 RBC 4.43 L Hgb 13.2 L Hct 40.9 L MCV 92.3 Plt Count 173 Progress Note: A/P (1) Thrombocytopenia Status: Chronic Assessment and plan: 1. This is a 54-year-old male with chronic easy skin bruising and mild stable thrombocytopenia. Hematological workup in December 2018 was negative. I have reassured him that his skin bruising is not related to thrombocytopenia. This could be related to skin fragility probably related to previous hepatitis-C or extra intestinal manifestations of chronic hepatitis-C even though he has had successful treatment with interferon. Autoimmune manifestations, vasculitis could also be considered. DREW and cryoglobulin submitted today. Follow-up in 6 months. - Time Spent With Patient Total time spent is greater than 50% in coordination of care (as documented) at patient's floor/unit and/or counseling patient: 25 - 35 minutes
--- NOTE | 2020-09-03 09:26 | MHC.HEMONCMA ---
Patient came in for a follow up today, states that he is doing well. Patient's medications and allergies were reviewed and updated. Patient requested receiving clerk for when he spoke with the doctor, Martin was called for this. Patient had blood work and will return in 1 year for a follow up.
[2020-09-03 09:37] LABS: Hematocrit 40.8 % (42-52); Hemoglobin 13.5 g/dl (14.0-18.0); Mean Corpuscular HGB Conc 33.1 g/dl (31.0-36.0); Mean Corpuscular Hemoglobin 30.3 pg (27.0-33.0); Mean Corpuscular Volume 91.5 fL (80-98); Mean Platelet Volume 10.9 fL (9.4-12.4); Platelet Count 150 X10*3/uL (160-400); Red Blood Count 4.46 X10*6/uL (4.60-5.80); Red Cell Distribution Width 13.5 % (11.0-16.0); White Blood Count 6.3 X10*3/uL (4.8-10.8)
[2020-09-04 15:36] LABS: Anti Nuclear Antibody Screen NEGATIVE (NEGATIVE)
[2020-09-10 06:27] LABS: Cryoglobulin, Qual Negative (Negative)
[2021-02-23 10:03] VITALS: BP 118/64; PULSE 58; RESP 14; TEMP 36.6; O2SAT 97; BMI 34.0
--- NOTE | 2021-02-23 10:43 | P.PNHO_ITS ---
Medical Summary - Medical Summary Date of Service: 02/23/21 Chief complaint: Easy skin bruising Medical Summary: Diagnosis: Easy bruising/thrombocytopenia/chronic hepatitis-C status post interferon therapy Intermittent thrombocytopenia with platelet counts ranging from 67 to 176 K over the years. Anemia with hemoglobin of 12.8 in November 2018. Previously in April 2018 it was 13.8. Normal iron studies, normal vitamin B12 and folate levels, serum protein electrophoresis and immunofixation was negative. DREW negative in 2017. Successful interferon therapy for chronic hepatitis-C. Normal kidney and liver functions. CT abdomen and pelvis in 2018 showed no hepatosplenomegaly. Normal coagulation tests. Skin bruising of upper extremities and trunk since 2016. No family history of bleeding disorder. Hematological workup showed normal coagulation tests, negative von Willebrand's testing. Interval History Interval history: Patient is here in follow-up. He is doing okay but reports on and off skin bruising. He has nothing to show today. He was also questioning his liver enzymes. He denies any mucosal bleeding such as hematochezia, hematuria or nose bleeds. He denies any recent infections or use of antibiotics. Review of Systems - Constitutional Reports as per HPI, Reports no additional constitutional complaints [facility] Medical History: Medical History (Last Reviewed 02/23/21 @ 10:05 by Noemy Reynoso) Colon polyps COPD (chronic obstructive pulmonary disease) Hepatitis C Hypogonadism Hypogonadism in male Hypogonadotropic hypogonadism Myalgia VICTORIA (obstructive sleep apnea) Osteoarthritis Pituitary microadenoma Sleep apnea Thrombocytopenia Vitamin D deficiency Family History: Family History (Last Reviewed 02/23/21 @ 10:06 by Noemy Reynoso) Maternal Aunt Cancer Father Diabetes Paternal Aunt Diabetes Paternal Aunt Diabetes Surgical History: Surgical History (Last Reviewed 02/23/21 @ 10:06 by Noemy Reynoso) Hx of carpal tunnel repair Social History: Social History (Last Reviewed 02/23/21 @ 10:07 by Noemy Reynoso) Alcohol History: Alcohol intake: former Alcohol History Details: Alcohol intake frequency: does not drink Tobacco History: Patient Tobacco Use Status: Current everyday Tobacco Years Smoked: 45 Substance Use History: Use of substances other than those prescribed or required for medical reasons : No Oncology Screenings - ECOG Performance Status ECOG Performance Status: 0 Home Medications and Allergies Home Medications Medication Instructions Recorded Confirmed Type albuterol sulfate 90 mcg/actuation 2 puff INHALATION Q6H PRN 07/28/20 02/23/21 History aerosol inhaler (ProAir HFA) bupropion HCl 150 mg tablet,12 hr 150 mg PO BID 07/28/20 02/23/21 History sustained-release (Wellbutrin SR) fluticasone 250 mcg-salmeterol 50 1 inh INHALATION BID 07/28/20 02/23/21 History mcg/dose blistr powdr for inhalation (Wixela Inhub) ipratropium 20 mcg-albuterol 100 1 puff INHALATION QID 07/28/20 02/23/21 History mcg/actuation mist for inhalation (Combivent Respimat) omeprazole 20 mg capsule,delayed 20 mg PO DAILY 07/28/20 02/23/21 History release polyethylene glycol 3350 8.5 gram 8.5 g PO DAILY PRN 07/28/20 02/23/21 History oral powder packet risperidone 2 mg tablet 2 mg PO BEDTIME 07/28/20 02/23/21 History lidocaine 5 % topical ointment 5 appl TOPICAL DAILY 09/03/20 02/23/21 History pantoprazole 20 mg tablet,delayed 1 tab PO DAILY 09/03/20 02/23/21 History release propranolol 20 mg tablet 1 tab PO BID 09/03/20 02/23/21 History trazodone 300 mg tablet 1 tab PO BEDTIME 09/03/20 02/23/21 History methadone 10 mg tablet 52 mg PO DAILY tab 11/19/20 02/23/21 History Allergies Allergy/AdvReac Type Severity Reaction Status Date / Time No Known Allergies Allergy Verified 12/31/20 14:30 [No Known Allergies*] Exam Vital signs: Vital Signs Temp 97.9 F 02/23/21 10:03 Pulse 58 02/23/21 10:03 Resp 14 02/23/21 10:03 BP 118/64 02/23/21 10:03 Pulse Ox 97 02/23/21 10:03 Intake & Output 02/22/21 02/23/21 02/23/21 18:59 06:59 18:59 Other: Weight 98.4 kg Weight in Grams 16713 Weight 98.4 kg Body Mass Index 34.0 - Constitutional Present: no acute distress - Routine HEENT Exam Head: Present: normal inspection - Routine Neck Exam Absent: lymphadenopathy - Routine Respiratory Exam Present: CTAB - Routine Cardiovascular Exam Cardiovascular: Present: RRR, S1, S2 - Routine Skin Exam Present: intact Data - Labs CBC & Chem 7: 02/23/21 10:39 02/23/21 10:39 Labs: Laboratory Tests 04/02/20 13:39 WBC 6.4 RBC 4.43 L Hgb 13.2 L Hct 40.9 L MCV 92.3 Plt Count 173 Progress Note: A/P (1) Thrombocytopenia Status: Chronic Assessment and plan: 1. This is a 54-year-old male with chronic easy skin bruising and mild stable thrombocytopenia. Hematological workup in December 2018 was negative. I have reassured him that his skin bruising is not related to thrombocytopenia. This could be related to skin fragility probably related to previous hepatitis-C or extra intestinal manifestations of chronic hepatitis-C even though he has had successful treatment with interferon. Autoimmune manifestations, vasculitis could also be considered. DREW and cryoglobulin levels normal. Rest of hematological workup including factor 8 activity, von Willebrand's testing, coagulation tests, serum protein electrophoresis and immunofixation were normal. Blood work today shows mild anemia and thrombocytopenia. Follow-up in 6 months. - Time Spent With Patient Time Spent with Patient (in minutes): 15
[2021-02-23 10:45] LABS: MANUAL DIFF FLAG NO
[2021-02-23 10:52] LABS: Basophils Percent Auto 0.4 % (0-2); Eosinophils Absolute Auto 0.1 X10*3/uL (0.0-0.4); Eosinophils Percent Auto 1.1 % (0-4); Hematocrit 39.1 % (42-52); Hemoglobin 12.7 g/dl (14.0-18.0); Imm Gran Abs Auto 0.01 X10*3/uL (0.00-0.03); Imm Gran Pct Auto 0.2 % (0.0-0.4); Lymphocytes Percent Auto 17.2 % (20-40); Mean Corpuscular HGB Conc 32.5 g/dl (31.0-36.0); Mean Corpuscular Hemoglobin 29.6 pg (27.0-33.0); Mean Corpuscular Volume 91.1 fL (80-98); Monocytes Absolute Auto 0.5 X10*3/uL (0.1-1.2); Monocytes Percent Auto 9.4 % (2-11); Neutrophils Percent Auto 71.7 % (45-73); Platelet Count 152 X10*3/uL (160-400); Red Blood Count 4.29 X10*6/uL (4.60-5.80); Red Cell Distribution Width 13.6 % (11.0-16.0); White Blood Count 5.5 X10*3/uL (4.8-10.8)
[2021-02-23 11:19] LABS: Alanine Aminotransferase 18 U/L (0-40); Albumin Level 3.8 g/dL (3.5-5.0); Alkaline Phosphatase 96 U/L (39-117); Anion Gap 12 (12-20); Aspartate Amino Transferase 19 U/L (5-37); Bilirubin Total 0.2 mg/dL (0.0-1.0); Blood Urea Nitrogen 15 mg/dL (9-16); Calcium 8.9 mg/dL (8.4-10.2); Carbon Dioxide 26 mmol/L (22-29); Chloride 105 mmol/L (96-108); Creatinine Clr Calc Pharmacy 109.7; Estimated Glomerular Filt Rate > 60; Glucose Random 128 mg/dL (60-115); Potassium 4.4 mmol/L (3.3-5.1); Sodium 139 mmol/L (135-145); Total Protein 6.6 g/dL (6.5-8.0)
--- NOTE | 2021-02-23 14:05 | MHC.HEMONCMA ---
Patient came in for a hem follow up, states that he is ok, but is concerned about the results of his brain MRI. Clinical summary was reviewed and updated. Patient had labs and will return in 6 months for a follow up.
--- NOTE | 2021-09-07 09:27 | HE.ONCSEC ---
CALLED PATIENT FOR ROUTINE REMINDER CALLS , PATIENT CANCELLED APPT THAT WAS FOR 09/08/21 BUT DID NOT SPECIFY WHY I RESCHEDULED W/ PATIENT ON THE PHONE .
--- NOTE | 2021-09-25 14:05 | HO.HEMONCSCH ---
Left message letting pt know he no showed for his apt on 09/25/21. N/S letter mailed.
== END | disposition home or self-care (01) ==
LOC: HO.ONC 09-03 08:09
PROVIDERS: PCP Internal Medicine; Visit Provider Internal Medicine
DX: D69.6 Thrombocytopenia, unspecified (principal); D64.9 Anemia, unspecified; R23.3 Spontaneous ecchymoses; B18.2 Chronic viral hepatitis C
CPT/HCPCS: 36415; 80053; 82595; 85025; 85027; 86038; 86039; 99214

== ENCOUNTER 2024-06-16 13:36 | Outpatient (REF) | payer OTHER, SELFPAY ==
[2024-06-16] MEDS: gadobutroL 10 ML VIAL IVPUSH (14:23)
== END 2024-06-16 13:37 | disposition home or self-care (01) ==
LOC: HO.MRI 13:36
PROVIDERS: PCP Internal Medicine; Visit Provider Internal Medicine Endocrinology, Diabetes & Metabolism
DX: D35.2 Benign neoplasm of pituitary gland (principal)
CPT/HCPCS: 70553; A9585

== ENCOUNTER 2024-08-10 13:46 | Outpatient (REF) | payer OTHER, SELFPAY ==
[2024-08-10 14:56] LABS: Prostate Specific Antigen < 0.10 ng/mL (<0.05-4.0)
[2024-08-16 16:03] LABS: Testosterone, Free 1.8 pg/mL (35.0-155.0); Testosterone, Total 14 ng/dL (250-1100)
== END 2024-08-10 13:47 | disposition home or self-care (01) ==
LOC: HO.LAB 13:46
PROVIDERS: PCP Internal Medicine; Visit Provider Internal Medicine Endocrinology, Diabetes & Metabolism
DX: E23.0 Hypopituitarism (principal); D35.2 Benign neoplasm of pituitary gland; Z12.5 Encounter for screening for malignant neoplasm of prostate
CPT/HCPCS: 36415; 84153; 84402; 84403

== ENCOUNTER 2024-08-13 07:49 | Outpatient (REF) | payer OTHER, SELFPAY ==
[2024-08-13 08:09] LABS: Total Volume 24 Hour Urine 700 mL
[2024-08-13 08:28] LABS: Hematocrit 41.4 % (42.0-52.0); Hemoglobin 13.6 g/dl (14.0-18.0)
[2024-08-13 08:57] LABS: Creatinine, mg/dL 136.42
[2024-08-19 19:19] LABS: Cortisol Free, 24 Hr Urine 38.9 mcg/24 h (4.0-50.0); Creatinine, 24 Hr Urine 0.99 g/24 h (0.50-2.15); Total Volume, 24 Hr Urine 700 mL
== END 2024-08-13 07:50 | disposition home or self-care (01) ==
LOC: HO.LAB 07:49
PROVIDERS: PCP Internal Medicine; Visit Provider Internal Medicine Endocrinology, Diabetes & Metabolism
DX: D35.2 Benign neoplasm of pituitary gland (principal); E23.0 Hypopituitarism
CPT/HCPCS: 36415; 82530; 82570; 85014; 85018

== ENCOUNTER 2024-08-21 08:05 | Outpatient (AMB) | payer OTHER, SELFPAY ==
--- OUTSIDE RECORDS SUMMARY | 2024-08-21 08:12 | XMS_ITS | Encounter Summary ---
Author Organization [employer] Address [address] [place] [address] Care Team Providers Care Financial Health Counselor Name Role Phone Livia Ramesh MD Primary Care Provider [phone] Encounter Details Date Type Department Care Team (Late st Contact Info) Description 08/10/2024 Orders Only GENERIC EXTERNAL DATA DEPARTMENT Provider, Generic External Data Social History Tobacco Use Types Packs/Day Years Used Date Smoking Tobacco: Every Day Cigarettes 0.5 44 Passive Smoke Exposure: Never Smokeless Tobacco: Never Comments:Has resumed smoking Depression Answer Date Recorded Patient Health Questionnaire-9 Score 1 05/18/2023 Patient Health Questionnaire-9 Score 1 05/18/2023 Last PHQ-9: Questionnaire Data Not on file 1 Housing Stability Answer Date Recorded What is your housing situation today? I have jared smith 05/09/[address] you li ve. Do you have problems with any of the following? None of the above 05/09/2023 Food Insecurity Answer Date Recorded Within the past 12 months, y ou worried that your food would run out before you got money to buy more: Never True 05/09/2023 Within the past 12 months,th e food you bought just didn't last and you didn't have enough money to get more: Never True Transportation Answer Date Recorded In the past 12 months, has l ack of transportation kept you from medical appts, meetings, work or from getting things needed for daily living? No 05/09/2023 Utilities Answer Date Recorded In the past 12 months, has t he electric, gas, oil or water company threatened to shut off services in your home? No 05/09/2023 Depression Answer Date Recorded Patient Health Questionnaire-2 Score 0 05/18/2023 Sex and Gender Information Value Date Recorded Sex Assigned at Male 05/24/2022 10:18 AM EDT Legal Sex Male 10:18 AM EDT Gender Identity Male 05/24/2022 10:18 AM EDT Sexual Orientation Straight 05/24/2022 10 :18 AM EDT documented as of this encounter Plan of Treatment Not on file documented as of this encounter Procedures Procedure Name Priority Date/Time Associated Diagnosis Comments CANCELLED HEMATOLOGY Routine 08/10/2024 2:04 PM EST TESTOSTERONE, FREE (DIALYSIS) AND TOTAL,MS Routine 08/10/2024 2:04 PM EST PSA, TOTAL Routine 08/10/2024 2:04 PM EST documented in this encounter Results * (ABNORMAL) Testosterone, Free (Dialysis) And Total, MS (08/10/2024 2:04 PM EST) Testosterone, Total 14(A) 250 - 1100 ng/dL [facility] Comment:For additional infor mation, please refer [email or web address](This link is being provided for informational/educational purposes only.)This test was developed and its analytical performancecharacteristics have been determined by [employer] [place], [place]. It hasnot been cleared or approved by the U.S. Food and DrugAdministration. This assay has been validated pursuantto the CLIA regulations and is used for clinicalpurposes. Testosterone, Free 1.8(A) 35.0 - 155.0 pg/mL [facility] Comment:This test was develo ped and its analytical performancecharacteristics have been determined by [employer] [place], [place]. It hasnot been cleared or approved by the U.S. Food and DrugAdministration. This assay has been validated pursuantto the CLIA regulations and is used for clinicalpurposes.THIS TEST WAS PERFORMED AT:[employer] [id number] [place] [address]HOKAQRYKENNEDY MEJIAS MD,PHD 08/10/2024 2:04 PM EST 08/10/2024 2:04 PM EST us Generic External Data Provider LAB BLOOD ORDERAB LES Final Result Performing Organization Address [facility] Co de Phone Number [facility] [address] [place] [phone] * PSA,Total (08/10/2024 2:04 PM EST) Prostate Specific Antigen <0.10 <0.05 - 4.0 ng/mL [facility] Comment:PSA methodology: Khadar Calle i ChemiluminescentMicroparticle Immunoassay (CMIA) 08/10/2024 2:04 PM EST 08/10/2024 2:04 PM EST us Generic External Data Provider LAB BLOOD ORDERAB LES Final Result Performing Organization Address [facility] Co de Phone Number [facility] [address] [place] [phone] * Cancelled Hematology (08/10/2024 2:04 PM EST) Cancelled Hematology SEE NOTE [facility] Comment:THE FOLLOWING TESTS WERE CANCELLED: HGB,HCTREASON: CLOTTED 08/10/2024 2:04 PM EST 08/10/2024 2:04 PM EST Generic External Data Provider HISTORICAL/NON OR DERABLE LABS Final Result Performing Organization Address [facility] de Phone Number [facility] [address] [place] [phone] documented in this encounter Visit Diagnoses Not on filedocumented in this encounter Additional Health Concerns Assessment Noted Time PHQ-9 Depression Total Score: 1 05/18/20 23 9:54 AM EDT documented as of this encounter Care Teams Financial Health Counselor Relationship Specialty Start Date End Date Livia Ramesh MD [address] [place] [phone] PCP - General Internal Medicine 07/25/18 [facility] 08/21/18 documented as of this encounter
--- OUTSIDE RECORDS SUMMARY | 2024-08-21 08:12 | XMS_ITS | Encounter Summary ---
Author Organization [employer] Address [address] [facility] [address] [place] [address] Care Team Providers Care Relocation Commissioner Name Role Phone Livia Ramesh MD Primary Care Provider [phone] Encounter Details Date Type Department Care Team ([facility] st Contact Info) Description 08/18/2023 Orders Only [facility] [address] [place], [place] [phone] Livia Ramesh MD [address] [place], [place] [phone] Social History Tobacco Use Types Packs/Day Years [...] on file documented as of this encounter Visit Diagnoses Not on filedocumented in this encounter Additional Health Concerns Assessment Noted Time PHQ-9 Depression Total Score: 1 05/18/20 23 9:54 AM EDT documented as of this encounter Care Teams Relocation Commissioner Relationship Specialty Start Date End Date Livia Ramesh MD [address] [place] [phone] PCP - General Internal Medicine 07/25/18 [facility] 08/21/18 documented as of this encounter
--- OUTSIDE RECORDS SUMMARY | 2024-08-21 08:12 | XMS_ITS | Encounter Summary ---
Author Organization [employer] Address [address] [place] [address] Care Team Providers Care Social Media Community Manager Name Role Phone Livia Ramesh MD Primary Care Provider [phone] Encounter Details Date Type Department Care Team (Late st Contact Info) Description 08/13/2024 Orders Only GENERIC EXTERNAL DATA DEPARTMENT Provider, [...] Procedure Name Priority Date/Time Associated Diagnosis Comments HEMOGLOBIN Routine 08/13/2024 8:01 AM EST HEMATOCRIT Routine 08/13/2024 8:01 AM EST CREATININE, 24 HR GROUP Routine 08/13/2024 7:00 AM EST CORTISOL FREE, URINE, 24 HOUR Routine 08/13/2024 7:00 AM EST documented in this encounter Results * (ABNORMAL) Hematocrit (08/13/2024 8:01 AM EST) Hematocrit 41.4(L) 42.0 - 52.0 % [facility] 08/13/2024 8:01 AM EST 08/13/2024 8:01 AM EST us Generic External Data Provider LAB BLOOD ORDERAB LES Final Result Performing Organization Address [facility] Co de Phone Number [facility] [address] [place] [phone] * (ABNORMAL) Hemoglobin (08/13/2024 8:01 AM EST) Hemoglobin 13.6(L) 14.0 - 18.0 g/dl [facility] 08/13/2024 8:01 AM EST 08/13/2024 8:01 AM EST us Generic External Data Provider LAB BLOOD ORDERAB LES Final Result Performing Organization Address City/[facility]/ZIP Co de Phone Number [facility] [address] [place] [phone] * Cortisol, Free, 24 Hour Urine (08/13/2024 7:00 AM EST) Cortisol, Free, 24 hr Urine 38.9 4.0 - 50.0 mcg/24 h [facility] Comment:This test was develo ped and its analytical performancecharacteristics have been determined by [employer].It has not been cleared or approved by FDA. This assay hasbeen validated pursuant to the CLIA regulations and is usedfor clinical purposes. Creatinine, Urine 0.99 0.50 - 2.15 g/24 h [facility] Comment:THIS TEST WAS PERFOR MED AT:[employer] [id number] [place] [address]DBTBVROB DUGGAN MD,PHD,LENO Total Volume 700 mL [facility] 08/13/2024 7:00 AM EST 08/13/2024 7:54 AM EST [facility] - 08/19/2024 7:19 PM EST [id number] Generic External Data Provider LAB BLOOD ORDERAB LES Final Result [facility] [address] [place] [phone] * CREATININE, 24 HR GROUP (08/13/2024 7:00 AM EST) Creatinine, 24 Hour Urine 1.0 1.0 - 2.0 G/Day [facility] Creatinine, Urine 136.42 [facility] Urine Total Volume 24 Hour 700 mL [facility] 08/13/2024 7:00 AM EST 08/13/2024 7:54 AM EST [facility] - 08/13/2024 8:57 AM EST [id number] us Generic External Data Provider LAB URINE ORDERAB LES Final Result [facility] [address] [place] [phone] documented in this encounter Visit Diagnoses Not on filedocumented in this encounter Additional Health Concerns Assessment Noted Time PHQ-9 Depression Total Score: 1 05/18/20 23 9:54 AM EDT documented as of this encounter Care Teams Social Media Community Manager Relationship Specialty Start Date End Date Livia Ramesh MD [address] [place] [phone] PCP - General Internal Medicine 07/25/18 [facility] 08/21/18 documented as of this encounter
--- OUTSIDE RECORDS SUMMARY | 2024-08-21 08:12 | XMS_ITS | Encounter Summary ---
Author Organization [employer] Address [address] [facility] [address] [place] [address] Care Team Providers Care System Manager Name Role Phone Livia Ramesh MD Primary Care Provider [phone]- [phone] Reason for Visit * Reason Onset Date Comments Appointment Request 03/07/2023 Encounter Details Date Type Department Care Team ([facility] st Contact Info) Description 03/07/2023 Telephone [facility] [address] [place] [address] Livia Ramesh MD [address] [place] [address] Appointment Request Social History Tobacco Use Types Packs/Day Years Used Date Smoking Tobacco: Never Assessed Sex and Gender Information Value Date Recorded Sex Assigned at Male 05/24/2022 10:18 AM EDT Legal Sex Male 10:18 AM EDT Gender Identity Male 05/24/2022 10:18 AM EDT Sexual Orientation Straight 05/24/2022 10 :18 AM EDT documented as of this encounter Miscellaneous Notes * Telephone Encounter - Fede Valero - 03/07/2023 9:57 AM EDT Tc from pt requesting a follow up appt with provider. Pt states has some concerns would like to discuss with PCP. Please contact pt at [phone] Chinese Speaker documented in this encounter Plan of Treatment Not on file documented as of this encounter Visit Diagnoses Not on filedocumented in this encounter Care Teams System Manager Relationship Specialty Start Date End Date Livia Ramesh MD [address] [place] [phone] PCP - General Internal Medicine 07/25/18 [facility] 08/21/18 documented as of this encounter
--- OUTSIDE RECORDS SUMMARY | 2024-08-21 08:12 | XMS_ITS | Encounter Summary ---
Author Organization [employer] Address [address] [facility] [address] [place] [address] Care Team Providers Care Eyelet Row Marker Name Role Phone Livia Ramesh MD Primary Care Provider [phone]- [phone] Encounter Details Date Type Department Care Team ([facility] st Contact Info) Description 07/22/2022 Orders Only [facility] MED [facility] PEDS [address] [place] [address] Lisha John, RN [address] [place] [address] Social History Tobacco Use Types Packs/Day Years [...] Procedure Name Priority Date/Time Associated Diagnosis Comments SEX HORMONE BINDING GLOBULIN Routine 09/20/2022 7:23 AM EST HEMOGLOBIN Routine 09/20/2022 7:23 AM EST HEMATOCRIT Routine 09/20/2022 7:23 AM EST TESTOSTERONE, FREE (DIALYSIS) AND TOTAL,MS Routine 09/20/2022 7:23 AM EST PSA, TOTAL Routine 09/20/2022 7:23 AM EST PROLACTIN, DILUTION STUDY Routine 08/19/2022 7:17 AM EST CORTISOL RANDOM Routine 08/19/2022 7:17 AM EST SEX HORMONE BINDING GLOBULIN Routine 08/19/2022 7:17 AM EST IGF 1, LC/MS Routine 08/19/2022 7:17 AM EST ACTH, PLASMA Routine 08/19/2022 7:17 AM EST TESTOSTERONE, FREE (DIALYSIS) AND TOTAL,MS Routine 08/19/2022 7:17 AM EST T3, TOTAL Routine 08/19/2022 7:17 AM EST TSH Routine 08/19/2022 7:17 AM EST T4, FREE Routine 08/19/2022 7:17 AM EST OSMOLALITY (SERUM) Routine 08/19/2022 7: 17 AM EST LH Routine 08/19/2022 7:17 AM EST FSH Routine 08/19/2022 7:17 AM EST BASIC METABOLIC PANEL Routine 08/19/2022 7:17 AM EST documented in this encounter Results * (ABNORMAL) Testosterone, Free (Dialysis) And Total, MS (09/20/2022 7:23 AM EST) Testosterone, Total 23(A) 250 - 1100 ng/dL [facility] Comment:For additional infor suni, please refer tohttp://education.IRL Connect.BATS/faq/WhjygVumzspakfjwfQSDIFLHAO198(This link is being provided for informational/educational purposes only.)This test was developed and its analytical performancecharacteristics have been determined by [employer] [place], [place]. It hasnot been cleared or approved by the U.S. Food and DrugAdministration. This assay has been validated pursuantto the CLIA regulations and is used for clinicalpurposes. Testosterone, Free 4.2(A) 35.0 - 155.0 pg/mL [facility] Comment:This test was develo ped and its analytical performancecharacteristics have been determined by [employer] [place], [place]. It hasnot been cleared or approved by the U.S. Food and DrugAdministration. This assay has been validated pursuantto the CLIA regulations and is used for clinicalpurposes.THIS TEST WAS PERFORMED AT:[employer] [place] [address]MFUCGOGKENNEDY MEJIAS MD,PHD 09/20/2022 7:23 AM EST 09/20/2022 7:23 AM EST [facility] External Provider LAB BLO OD ORDERABLES Final Result Performing Organization Address City/[facility]/ZIP Co de Phone Number [facility] [address] [place] [phone] * Sex Hormone Binding Globulin (SHBG) (09/20/2022 7:23 AM EST) Sex Hormone Binding Globulin 25 22 - 77 nmol/L [facility] Comment:THIS TEST WAS PERFOR MED AT:[employer] [address] [address]ADYRRJONG VOGEL MD 09/20/2022 7:23 AM EST 09/20/2022 7:23 AM EST [facility] External Provider LAB BLO OD ORDERABLES Final Result Performing Organization Address [facility]/ZIP Co de Phone Number [facility] [address] [place] [phone] * PSA,Total (09/20/2022 7:23 AM EST) Prostate Specific Antigen 0.14 <0.05 - 4.0 ng/mL [facility] Comment:PSA methodology: Abb katlyn Alibarryty i ChemiluminescentMicroparticle Immunoassay (CMIA) 09/20/2022 7:23 AM EST 09/20/2022 7:23 AM EST [facility] External Provider LAB BLO OD ORDERABLES Final Result Performing Organization Address City/[facility] Co de Phone Number [facility] [address] [place] [phone] * (ABNORMAL) Hematocrit (09/20/2022 7:23 AM EST) [facility] Hematocrit 41.9(L) 42.0 - 52.0 % [facility] 09/20/2022 7:23 AM EST 09/20/2022 7:23 AM EST [facility] External Provider LAB BLO OD ORDERABLES Final Result Performing Organization Address [facility] Co de Phone Number [facility] [address] [place] [phone] * (ABNORMAL) Hemoglobin (09/20/2022 7:23 AM EST) [facility] Hemoglobin 13.6(L) 14.0 - 18.0 g/dl [facility] 09/20/2022 7:23 AM EST 09/20/2022 7:23 AM EST [facility] External Provider LAB BLO OD ORDERABLES Final Result Performing Organization Address [facility] de Phone Number [facility] [address] [place] [phone] * (ABNORMAL) Testosterone, Free (Dialysis) And Total, MS (08/19/2022 7:17 AM EST) Pathologist [facility] Testosterone, Total 37(A) 250 - 1100 ng/dL [facility] Comment:For additional infor suni, please refer tohttp://education.IRL Connect.BATS/faq/YmrfpSgqcljmirymiVNQGGTRYV241(This link is being provided for informational/educational purposes only.)This test was developed and its analytical performancecharacteristics have been determined by [employer] [place], [place]. It hasnot been cleared or approved by the U.S. Food and DrugAdministration. This assay has been validated pursuantto the CLIA regulations and is used for clinicalpurposes. Testosterone, Free 5.6(A) 35.0 - 155.0 pg/mL [facility] Comment:This test was develo ped and its analytical performancecharacteristics have been determined by [place]. It hasnot been cleared or approved by the U.S. Food and DrugAdministration. This assay has been validated pursuantto the CLIA regulations and is used for clinicalpurposes.THIS TEST WAS PERFORMED AT:[employer]/[facility] [id number] [place] [address]IAHTZTVKENNEDY MEJIAS MD,PHD 08/19/2022 7:17 AM EST 08/19/2022 7:17 AM EST [facility] External Provider LAB BLO OD ORDERABLES Final Result [facility] [address] [place] [phone] * IGF-1, LC/MS (08/19/2022 7:17 AM EST) IGF 1, LC/MS 91 50 - 317 ng/mL [facility] Z Score (Male) -0.8 -2.0 - 2.0 SD [facility] Comment:This test was develo ped and its analytical performancecharacteristics have been determined by [facility]. It has not beencleared or approved by FDA. This assay has been validatedpursuant to the CLIA regulations and is used for clinicalpurposes.THIS TEST WAS PERFORMED AT:[employer] [id number] [place] [address]PMMJBROB DUGGAN MD,PHD,LENO Z Score (Female) [facility] 08/19/2022 7:17 AM EST 08/19/2022 7:17 AM EST [facility] External Provider LAB BLO OD ORDERABLES Final Result Performing Organization Address [facility] [place] [phone] * Prolactin, Dilution Study (08/19/2022 7:17 AM EST) Prolactin, Undiluted 6.7 2.0 - 18.0 ng/mL [facility] Prolactin, Diluted SEE NOTE 2.0 - 18.0 ng/mL [facility] Comment:Result confirmed by 1:100 dilution. No high dosehook effect detected.Prolactin dilution studies are done to determine ifthere is a high-dose hook effect (i.e. a non-linearassay response due to a very high concentration ofProlactin). This is reported to occur at Prolactinconcentrations at or above 30,000 ng/mL.This test is not recommended for identifyingmacroprolactin. [facility], Prolactin, Total and Monomeric is therecommended test (Order code [id number]).THIS TEST WAS PERFORMED AT:[employer] [address] ([address])[place] [address]YECOFJONG VOGEL MD 08/19/2022 7:17 AM EST 08/19/2022 7:17 AM EST [facility] External Provider LAB BLO OD ORDERABLES Final Result Performing Organization Address City/[facility]/ZIP Co de Phone Number [facility] [address] [place] [phone] * (ABNORMAL) LH (08/19/2022 7:17 AM EST) Lutenizing Hormone 0.6(A) 1.5 - 9.3 mIU/mL [facility] Comment:THIS TEST WAS PERFOR MED AT:[employer] [address] ([facility])[place] [address]VSVNWJILLIAN VOGEL MD 08/19/2022 7:17 AM EST 08/19/2022 7:17 AM EST [facility] External Provider LAB BLO OD ORDERABLES Final Result Performing Organization Address [facility] Co de Phone Number [facility] [address] [place] [phone] * FSH (08/19/2022 7:17 AM EST) Follicle Stimulating Hormone 3.4 1.6 - 8.0 mIU/mL [facility] Comment:THIS TEST WAS PERFOR MED AT:[employer] [address] ([facility])[place], [place] YESI VOGEL MD 08/19/2022 7:17 AM EST 08/19/2022 7:17 AM EST [facility] External Provider LAB BLO OD ORDERABLES Final Result Performing Organization Address City/[facility]/ZIP Co de Phone Number [facility] [address] [place] [phone] * Sex Hormone Binding Globulin (SHBG) (08/19/2022 7:17 AM EST) Sex Hormone Binding Globulin 28 22 - 77 nmol/L [facility] Comment:THIS TEST WAS PERFOR MED AT:[employer] [address] ([facility])[place] [address]VUESXJUANITA VOGEL MD 08/19/2022 7:17 AM EST 08/19/2022 7:17 AM EST [facility] External Provider LAB BLO OD ORDERABLES Final Result Performing Organization Address [place] [facility] Phone Number [facility] [address] [place] [phone] * T3, Total (08/19/2022 7:17 AM EST) [facility] T3, Total 99 76 - 181 ng/dL [facility] Comment:THIS TEST WAS PERFOR MED AT:[employer] [address] ([facility])[place] [address]KVXQKJONG VOGEL MD 08/19/2022 7:17 AM EST 08/19/2022 7:17 AM EST [facility] External Provider LAB BLO OD ORDERABLES Final Result Performing Organization Address [facility] Number [facility] [address] [place] [phone] * ACTH, Plasma (08/19/2022 7:17 AM EST) [facility] ACTH, Plasma 32 6 - 50 pg/mL [facility] Comment:Reference range appl ies only to specimenscollected between 7am-10amTHIS TEST WAS PERFORMED AT:[employer] [address] ([facility])[place] [address]LQZYLJILLIAN VOGEL MD 08/19/2022 7:17 AM EST 08/19/2022 7:17 AM EST [facility] External Provider LAB BLO OD ORDERABLES Final Result Performing Organization Address [facility] Number [facility] [address] [place] [phone] * Osmolality, Serum (08/19/2022 7:17 AM EST) [facility] Osmolality (Serum) 293 281 - 305 mosm/kg [facility] 08/19/2022 7:17 AM EST 08/19/2022 7:17 AM EST [facility] External Provider LAB BLO OD ORDERABLES Final Result Performing Organization Address [facility] Co de Phone Number [facility] [address] [place] [phone] * Cortisol Random (08/19/2022 7:17 AM EST) Cortisol Random 16.3 ug/dL [facility] Comment:Reference Range*: Be fore 10 am 6.2-19.4 ug/dL After 5 pm 2.3-11.9 ug/dL*Please interpret above results accordingly.This test was performed using the [employer] chemiluminescentmethod. Values obtained from different assay methods cannotbe used interchangeably.Patients receiving fludrocortisone, prednisolone orprednisone may show artificially elevated cortisol valuesdue to cross-reactivity. 08/19/2022 7:17 AM EST 08/19/2022 7:17 AM EST [facility] External Provider LAB BLO OD ORDERABLES Final Result Performing Organization Address [facility] Co de Phone Number [facility] [address] [place] [phone] * TSH (08/19/2022 7:17 AM EST) Thyroid Stimulating Hormone 1.67 0.32 - 4.0 uIU/mL [facility] Comment:TSH 3rd Generation ( [facility]) 08/19/2022 7:17 AM EST 08/19/2022 7:17 AM EST [facility] External Provider LAB BLO OD ORDERABLES Final Result Performing Organization Address [facility] Co de Phone Number [facility] [address] [place] [phone] * (ABNORMAL) T4, Free (08/19/2022 7:17 AM EST) Free T4 (Free Thyroxine) 2.06(H) 0.71 - 1.85 ng/dL [facility] 08/19/2022 7:17 AM EST 08/19/2022 7:17 AM EST [facility] External Provider LAB BLO OD ORDERABLES Final Result Performing Organization Address [facility]/ZIP Co de Phone Number [facility] [address] [place] [phone] * (ABNORMAL) Basic Metabolic Panel (08/19/2022 7:17 AM EST) Sodium 140 135 - 145 mmol/L [facility] Potassium 4.1 3.3 - 5.1 mmol/L [facility] Chloride 103 96 - 108 mmol/L [facility] Carbon Dioxide 26 22 - 29 mmol/L [facility] Anion Gap 15 12 - 20 [facility] Urea Nitrogen (BUN) 17(H) 9 - 16 mg/dL [facility] Creatinine, Serum 0.85 0.5 - 1.4 mg/dL [facility] Estimated Glomerular Filt Rate >60 [facility] Comment:NOTE: For -Am erican individuals, multiply the result by 1.210.Chronic Kidney Disease: Estimated GFR < 60 mL/min/1.87o5Ltpdoq Kidney Disease: Estimated GFR < 15 mL/min/1.73m2 Glucose 114 60 - 115 mg/dL [facility] Calcium 9.1 8.4 - 10.2 mg/dL [facility] 08/19/2022 7:17 AM EST 08/19/2022 7:17 AM EST [facility] External Provider LAB BLO OD ORDERABLES Final Result Performing Organization Address City/[facility]/ZIP Co de Phone Number [facility] [address] [place] [phone] documented in this encounter Visit Diagnoses Not on filedocumented in this encounter Care Teams Eyelet Row Marker Relationship Specialty Start Date End Date Livia Ramesh MD [address] [place] [phone] PCP - General Internal Medicine 07/25/18 [facility] 08/21/18 documented as of this encounter
--- OUTSIDE RECORDS SUMMARY | 2024-08-21 08:12 | XMS_ITS | Encounter Summary ---
Author Organization [employer] Address [address] [facility] [address]t [place] [address] Care Team Providers Care Welder Apprentice Arc Name Role Phone Livia Ramesh MD Primary Care Provider [phone] Reason for Visit * Reason Comments Med Refill Encounter Details Date Type Department Care Team ([facility] st Contact Info) Description 07/30/2024 Refill [facility]S [address] [place], [place] [phone] Livia Ramesh MD [address] [place] [address] Obesity (BMI 30-39.9) Social History Tobacco Use Types Packs/Day Years [...] documented as of this encounter Visit Diagnoses Diagnosis Obesity (BMI 30-39.9) documented in this encounter Additional Health Concerns Assessment Noted Time PHQ-9 Depression Total Score: 1 05/18/20 23 9:54 AM EDT documented as of this encounter Care Teams Welder Apprentice Arc Relationship Specialty Start Date End Date Livia Ramesh MD [address] [place] [phone] PCP - General Internal Medicine 07/25/18 [facility] 08/21/18 documented as of this encounter
--- OUTSIDE RECORDS SUMMARY | 2024-08-21 08:12 | XMS_ITS | Encounter Summary ---
Author Organization [employer] Address [address] [facility] [address] [place] [address] Care Team Providers Care Taper/Finisher Name Role Phone Livia Ramesh MD Primary Care Provider [phone]- [phone] Encounter Details Date Type Department Care Team (Late st Contact Info) Description 05/28/2024 Orders Only [facility] [address] [place], [place] [phone] ProviderKirti MD Social History Tobacco Use Types Packs/Day Years [...] Procedure Name Priority Date/Time Associated Diagnosis Comments MR BRAIN W AND WO CONTRAST Routine 06/16/2024 1:09 PM EST HEMOGLOBIN A1C Routine 05/11/2024 11:43 AM EDT documented in this encounter Results * Mr Brain w/ and w/o Contrast (06/16/2024 1:09 PM EST) Anatomical Region Laterality Modality Brain Magnetic Resonan ce 06/16/2024 1:09 PM EST Narrative 08/06/2024 2:43 PM EST ? [facility] ?[address] ?[place] [address] ? Magnetic Resonance Report ? Signed ? Patient: Baljeet Coronel ?MR#: [id number] ?? [id number] ? : 1965 ?Acct:[id number] ? Age/Sex: 59 / M ?ADM Date: 06/16/24 ? Loc: HO.MRI ? Attending Dr: Grey Tinajero MD ? Ordering Physician: Grey Tinajero MD ?? Date of Service: 06/16/24 ?? Procedure(s): MR head/brain wo/w con ?? Accession Number(s): [id number] ? cc: Livia Ramesh MD; Grey Tinajero MD ? EXAMINATION: ?? MR BRAIN WITHOUT AND WITH CONTRAST ? CLINICAL INFORMATION: ?? Follow-up benign neoplasm of pituitary gland. ? COMPARISON: ?? 02/03/2023 MRI. ? TECHNIQUE: ?? Multiplanar, multisequence MRI of the brain/sella was obtained before ?? and after the intravenous administration of 10.0 mL of Gadavist. ? FINDINGS: ? Sella: Redemonstrated is a hypoenhancing lesion in the anterior lobe of ?? the pituitary gland. This measures 0.7 x 0.5 cm in the sagittal plane, ?? stable in appearance, with a maximum transverse dimension in the ?? coronal plane of 0.8 cm, stable in appearance. No suprasellar extension ?? and no encroachment on the optic apparatus. The cavernous sinuses ?? enhance normally and there are normal signal voids in the carotid ?? siphons. The infundibulum enhances normally and is normal in thickness ?? and midline, stable in appearance. ? Brain Volume: Within normal limits within the limitations of ?? qualitative assessment. ? Structural: No malformations. ? Brain and Meninges: DWI sequence demonstrates no restricted diffusion ?? to suggest acute or subacute cerebral ischemia. Redemonstrated are a ?? few nonenhancing white matter T2 hyperintensities in the cerebral ?? hemispheres bilaterally, which are nonspecific findings but could ?? reflect chronic ischemic microangiopathy. Remainder the brain is normal ?? in morphology and signal intensity, allowing for some artifacts FLAIR ?? images. No other intracranial mass lesions, extra-axial fluid ?? collections, space-occupying process, mass effect or pathologic ?? intracranial enhancement are identified. ? Ventricles and Subarachnoid Spaces: The ventricular system and ?? subarachnoid spaces are within normal range; there is no hydrocephalus. ? Orbital Structures: The visualized orbital structures are grossly ?? unremarkable within the limitations of the study. ? Vascular: Signal voids are noted in the visualized major intracranial ?? vessels. ? Osseous Structures, Sinuses/Mastoids, Extracranial Soft Tissues: ?? Unremarkable ? MR/MR head/brain wo/w con ?? IMPRESSION: ?? 1. Stable pituitary lesion. No significant interval change in findings ?? suggestive of a pituitary microadenoma. ?? 2. No acute intracranial process. 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 ? Electronically signed by: ??Mendez Lara MD ??08/06/2024 02:40 PM EST RP ? Dictated By: ?MENDEZ LARA MD ? Signed By: ?<Electronically signed by MENDEZ LARA MD in OV> ? 08/06/24 1440 ? DD/ 1309 ? TD/TT: 06/16/24 1430 ? Junior Php Developer: ? Procedure Note Donotuseinterpreter, Image - 08/06/[address] [address] Magnetic Resonance Report Signed Patient: Ila Coronel#: [id number] : 1965Acct:[id number] Age/Sex: 59 / MADM Date: 06/16/24 Loc: HO.MRI Attending Dr: Grey Tinajero MD Ordering Physician: Grey Tinajero MD Date of Service: 06/16/24 Procedure(s): MR head/brain wo/w con Accession Number(s): [id number] cc: Livia Ramesh MD; Grey Tinajero MD EXAMINATION: MR BRAIN WITHOUT AND WITH CONTRAST CLINICAL INFORMATION: Follow-up benign neoplasm of pituitary gland. COMPARISON: 02/03/2023 MRI. TECHNIQUE: Multiplanar, multisequence MRI of the brain/sella was obtained before and after the intravenous administration of 10.0 mL of Gadavist. FINDINGS: Sella: Redemonstrated is a hypoenhancing lesion in the anterior lobe of the pituitary gland. This measures 0.7 x 0.5 cm in the sagittal plane, stable in appearance, with a maximum transverse dimension in the coronal plane of 0.8 cm, stable in appearance. No suprasellar extension and no encroachment on the optic apparatus. The cavernous sinuses enhance normally and there are normal signal voids in the carotid siphons. The infundibulum enhances normally and is normal in thickness and midline, stable in appearance. Brain Volume: Within normal limits within the limitations of qualitative assessment. Structural: No malformations. Brain and Meninges: DWI sequence demonstrates no restricted diffusion to suggest acute or subacute cerebral ischemia. Redemonstrated are a few nonenhancing white matter T2 hyperintensities in the cerebral hemispheres bilaterally, which are nonspecific findings but could reflect chronic ischemic microangiopathy. Remainder the brain is normal in morphology and signal intensity, allowing for some artifacts FLAIR images. No other intracranial mass lesions, extra-axial fluid collections, space-occupying process, mass effect or pathologic intracranial enhancement are identified. Ventricles and Subarachnoid Spaces: The ventricular system and subarachnoid spaces are within normal range; there is no hydrocephalus. Orbital Structures: The visualized orbital structures are grossly unremarkable within the limitations of the study. Vascular: Signal voids are noted in the visualized major intracranial vessels. Osseous Structures, Sinuses/Mastoids, Extracranial Soft Tissues: Unremarkable MR/MR head/brain wo/w con IMPRESSION: 1. Stable pituitary lesion. No significant interval change in findings suggestive of a pituitary microadenoma. 2. No acute intracranial process. 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 Electronically signed by: Mendez Lara MD 08/06/2024 02:40 PM EST Dictated By: MENDEZ LARA MD Signed By: <Electronically signed by MENDEZ LARA MD in OV> 08/06/24 1440 DD/ 1309 TD/TT: 06/16/24 1430 Junior Php Developer: [facility] External Provider IMG MRI PROCEDURES Final Result * Hemoglobin A1c (05/11/2024 11:43 AM EDT) Blood Venous blood specimen / Unknown Historical Provider LAB BLOOD ORDERABLES Lisa l Result documented in this encounter Visit Diagnoses Not on filedocumented in this encounter Additional Health Concerns Assessment Noted Time PHQ-9 Depression Total Score: 1 05/18/20 23 9:54 AM EDT documented as of this encounter Care Teams Taper/Finisher Relationship Specialty Start Date End Date Livia Ramesh MD [address] [place] [phone] PCP - General Internal Medicine 07/25/18 [facility] 08/21/18 documented as of this encounter
--- OUTSIDE RECORDS SUMMARY | 2024-08-21 08:12 | XMS_ITS | Encounter Summary ---
Author Organization [employer] Address [address] [place] [address] 7 [place] [address] Care Team Providers Care Editor Farm [employer] Name Role Phone Livia Ramesh MD Primary Care Provider [phone] Encounter Details Date Type Department Care Team ([facility] st Contact Info) Description 03/22/2023 Orders Only [facility] MED & PEDS [address] [place] [address] Katelyn Mckenzie LPN Social History Tobacco Use Types Packs/Day Years [...] on filedocumented in this encounter Care Teams Editor Farm Journal Relationship Specialty Start Date End Date Livia Ramesh MD [address] [place] [address] PCP - General Internal Medicine 07/25/18 Home [facility] 08/21/18 documented as of this encounter
--- OUTSIDE RECORDS SUMMARY | 2024-08-21 08:12 | XMS_ITS | Clinical Summary ---
Author Organization [employer] Address [address] [facility] 7t [place] [address] Care Team Providers Care [employer] Worker Name Role Phone Livia Ramesh MD Primary Care Provider [phone]- [phone] Allergies No known active allergies Medications * This document contains information received from the source organization and may not represent a complete record from that organization. gabapentin (Neurontin) 100 MG capsuleIndication s:Chronic pain syndrome Take 1 capsule (100 mg) by mouth every 8 (eight) hours. 90 capsule 3 022 Active ferrous sulfate 325 (65 Fe) MG tablet take 1 Tablet every other day 022 Active Ventolin HFA 108 (90 Base) MCG/ACT inhalerIndication s:Mild intermittent reactive airway disease without complication INHALE 2 PUFFS EVERY 4 HOURS NEEDED FOR WHEEZING 18 g 2 023 Active Combivent Respimat 20-100 MCG/ACT inhaler INHALE 1 PUFF BY MOUTH FOUR TIMES DAILY 023 Active ipratropium (Atrovent HFA) 17 MCG/ACT inhaler Inhale. 010 Active ipratropium-albut rui (Combivent Respimat) 20-100 MCG/ACT inhalerIndication s:COPD mixed type (CMS/HCC) Inhale 1 puff in the morning, at noon, in the evening, and at bedtime. 4 g 11 023 Active ipratropium-albut rui (Duo-Neb) 0.5-2.5 mg/3 mL nebulizer solutionIndicatio ns:COPD mixed type (CMS/HCC) Take 3 mL by nebulization 1 (one) time for 1 dose. 3 mL 023 Active nicotine (Nicoderm CQ) 7 MG/24HR patchIndications: Smoking Place 1 patch on the skin 1 (one) time each day at the same time. 30 patch 023 Active lisinopril 5 MG tabletIndications :Primary hypertension Take 1 tablet (5 mg) by mouth Once per day. 30 tablet 11 024 2024 Active Combivent Respimat 20-100 MCG/ACT inhaler INHALE 1 PUFF BY MOUTH FOUR TIMES DAILY 4 g 3 Active celecoxib (CeleBREX) 200 MG capsuleIndication s:Primary osteoarthritis involving multiple joints TAKE 1 CAPSULE BY MOUTH TWICE DAILY 60 capsule 1 Active varenicline (Chantix) 0.5 MG tabletIndications :Tobacco dependence syndrome Take 1 tablet (0.5 mg) by mouth 2 times daily. Take with full glass of water.Days 1 to 3: 0.5 mg once daily. Days 4 to 7: 0.5 mg twice daily. 11 tablet 1 Active varenicline (Chantix) 1 MG tabletIndications :Tobacco dependence syndrome Take 1 tablet (1 mg) by mouth 2 times daily. Take with full glass of water. 60 tablet 3 024 2024 Active gabapentin (Neurontin) 100 MG capsuleIndication s:Primary osteoarthritis of other site,Diabetic polyneuropathy associated with type 2 diabetes mellitus (CMS/HCC) Take 2 capsules (200 mg) by mouth 3 times daily. 18 capsule 11 Active Diclofenac Sodium 1 % gelIndications:Pr imary osteoarthritis of other site,Pain of toes of both feet To apply to the affected area 3 times a day 100 g Active albuterol 108 (90 Base) MCG/ACT inhalerIndication s:COPD mixed type (CMS/HCC) INHALE 2 PUFFS BY MOUTH EVERY 4 HOURS NEEDED FOR WHEEZING 8.5 g 3 Active glucose blood (WayConnecteduch Ultra) test strip USE DIRECTED TWICE DAILY 100 strip 11 Active omeprazole (PriLOSEC) [address] capsule TAKE 1 CAPSULE BY MOUTH TWICE DAILY 30 MINUTES TO 1 HOUR BEFORE A MEAL 180 capsule 1 12/23/2 024 Active Semaglutide-Weigh t Management (Wegovy) 1 MG/0.5ML solution auto-injectorIndi cations:Obesity (BMI 30-39.9) ADMINISTER 1 MG UNDER THE SKIN 1 TIME A WEEK 2 mL 1 025 Active metFORMIN (Glucophage) 500 MG tabletIndications :Type 2 diabetes mellitus without complication, without long-term current use of insulin (CMS/HCC) TAKE 1 TABLET BY MOUTH WITH BREAKFAST AND EVENING MEAL 60 tablet 11 025 Active metFORMIN (Glucophage) 500 MG tabletIndications :Type 2 diabetes mellitus without complication, without long-term current use of insulin (CMS/HCC) Take 1 tablet (500 mg) by mouth with breakfast and with evening meal. 60 tablet 024 2024 Discontinued ammonium lactate (Lac-Hydrin) 12 % creamIndications: Dry skin Apply topically if needed for dry skin. 140 g 024 2024 Semaglutide-Weigh t Management (Wegovy) 1 MG/0.5ML solution auto-injectorIndi cations:Obesity (BMI 30-39.9) 1 mg once a week. 2 mL 1 024 2024 Discontinued Active Problems Problem Noted Date Diagnosed Date Type 2 diabetes mellitus wit hout complication, without long-term current use of insulin 05/30/2024 Obesity (BMI 30-39.9) 05/30/2024 Chronic hepatitis C virus infection 04/13/2023 COPD mixed type 04/13/2023 Headache disorder 08/24/2022 Male hypogonadism 08/24/2022 Shoulder pain 08/24/2022 Simple goiter 08/24/2022 Adenoma of large intestine 09/01/2021 Osteoarthritis 12/11/2018 Pain in limb 10/13/2011 Tobacco dependence syndrome 10/13/2011 Dyspnea 09/14/2011 Palpitations 07/16/2011 Brachial neuritis 05/31/2011 Disorder of skeletal muscle 04/23/2011 Encounters * This document contains information received from the source organization and may not represent a complete record from that organization. Date Type Department Care Team Description 08/15/2024 Refill [facility] MED & PEDS [address] [place], [place] [phone] Livia Ramesh MD Type 2 diabetes mellitus without complication, without long-term current use of insulin ([facility]) 08/15/2024 Refill [facility] [address] [place] [address] Livia Ramesh MD Type 2 diabetes mellitus without complication, without long-term current use of insulin ([facility]) 08/13/2024 Orders Only GENERIC EXTERNAL DATA DEPARTMENT Provider, Generic External Data 08/10/2024 Orders Only GENERIC EXTERNAL DATA DEPARTMENT Provider, Generic External Data 08/03/2024 Telephone [facility] [address] [place], [place] [phone] Livia Ramesh MD Prior Authorization 07/30/2024 Refill [facility] [address] [place] [address] Livia Ramesh MD Obesity (BMI 30-39.9) 07/15/2024 Refill [facility] [address] [place], [place]ved[place] [phone] Livia Ramesh MD 06/28/2024 Telephone [facility] [address] [place], [place] [phone] Liiva Ramesh MD 06/21/2024 Refill [facility] [address] [place] [address] Livia Ramesh MD 06/04/2024 Refill [facility] [address] [place] [address] Livia Ramesh MD COPD mixed type ([facility]) 05/30/2024 9:00 AM EST Office Visit [facility] [address] [place], [place] Aceved[place] [phone] Livia Ramesh MD Type 2 diabetes mellitus without complication, without long-term current use of insulin ([facility]) (Primary Dx); Tobacco dependence syndrome; Obesity (BMI 30-39.9); Primary osteoarthritis of other site; Diabetic polyneuropathy associated with type 2 diabetes mellitus (CMS/[facility]); Pain of toes of both feet 05/30/2024 Travel 05/28/2024 Orders Only [facility] MED & PEDS [address] [place] [address] Provider, MD Kirti from Last 3 Months Immunizations Name Administration Dates Next Due Influenza injectable quadriv alent IIV4 with preservative 06/15/2019,05/23/2017,05/21/2016,2014 Influenza injectable quadriv alent preservative free 08/05/2021 Influenza, IIV3, injectable 05/20/2014 Influenza, Split (incl. nena fied surface antigen) 04/11/2013 Pneumococcal Conjugate PCV 20 02/06/2024 Tdap 01/30/2024,05/22/2015 Family History Medical History Relation Name Comments Colon cancer Father Ovarian cancer Mother's Sister Relation Name Status Comments Father Mother's Sister Social History Tobacco Use Types Packs/Day Years Used Date Smoking Tobacco: Every Day Cigarettes 0.5 44 Passive Smoke Exposure: Never Smokeless Tobacco: Never Tobacco Cessation:Ready to Q uit: Not Asked Comments:Has resumed smoking Depression Answer Date Recorded Patient Health Questionnaire-9 Score 1 05/18/2023 Patient Health Questionnaire-9 Score 1 05/18/2023 Last PHQ-9: Questionnaire Data Not on file 1 Housing Stability Answer Date Recorded What is your housing situation today? I have jaredwayne smith 05/09/[address] you [...] Orientation Straight 05/24/2022 10 :18 AM EDT Last Filed Vital Signs Vital Sign Reading Time Taken Comments Blood Pressure 137/76 05/30/2024 8:58 AM EST Pulse 71 05/30/2024 8:58 AM EST Temperature 36.7 ??C (98 ??F) 05/30/2024 8:58 AM EST Respiratory Rate 19 05/30/2024 8:58 AM EST Oxygen Saturation 98% 05/30/2024 8:58 AM EST Inhaled Oxygen Concentration - - Weight 102 kg (224 lb) 05/30/2024 8:58 AM EST Height 170.2 cm (5' 7 ) 05/30/2024 8:58 AM EST Body Mass Index 35.08 05/30/2024 8:58 AM EST Plan of Treatment Health Maintenance Due Date Last Done Comments CT Colonography 1965 FIT DNA/Cologuard 1965 FIT 1965 FOBT 1965 HIV Screening 1965 Sigmoidoscopy 1965 Eye Exam 1974 Alcohol/Substance Use Screening 1976 Hepatitis A Vaccines (1 of 2 - Risk 2-dose series) 1983 Zoster Vaccines (1 of 2) 2014 Lipid Panel 11/26/2021 11/26/2020, 11/26/2020 Hepatitis B Vaccines (1 of 3 - Risk 3-dose series) 2024 RSV Patients and Patients Aged 60 years or older (1 - Risk 60-74 years 1-dose series) 2024 SDOH Screening 05/09/2024 05/09/2023 Depression Screening 05/18/2024 05/18/2023, 05/18/20 23 Diabetes: Foot Exam 08/18/2024 08/18/2023, 08/18/2023, 08/18/2023, Additional history exists Diabetes: Hemoglobin A1C 11/09/2024 024, 04/16/2024, 12/08/2023, Additional history exists Influenza Vaccine (#1) 2025 , 06/15/2019, 05/23/2017, Additional history exists Postponed from 03/25/2024 (Patient Refused) Diabetes: Urine Protein Screening 02/05/2025 02/06/2024 COVID-19 Vaccine ( season) 2025 09/02/2023, 07/15/2022, 08/05/2021, Additional history exists Postponed from 03/25/2024 (Patient Refused) Tobacco Screening 05/30/2025 05/30/2024 Colonoscopy 05/31/2025 05/31/2022 Colorectal Cancer Screening 05/31/2025 Lung Cancer Screening 06/18/2025 06/18/2024 DTaP/Tdap/Td Vaccines (3 - Td or Tdap) 01/29/2034 01/30/2024, 05/22/2015 Pneumococcal Vaccine: Pediatrics (0 to 5 Years) and At-Risk Patients (6 to 64 Years) Completed 02/06/2024 HIB Vaccines Aged Out No longer eligi ble based on patient's age to complete this topic HPV Vaccines Aged Out No longer eligi ble based on patient's age to complete this topic IPV Vaccines Aged Out No longer eligi ble based on patient's age to complete this topic Meningococcal Vaccine Aged Out No adriana bennie eligible based on patient's age to complete this topic RSV under 20 months Aged Out No longe r eligible based on patient's age to complete this topic Rotavirus Vaccines Aged Out No longer eligible based on patient's age to complete this topic Procedures Procedure Name Priority Date/Time Associated Diagnosis Comments HEMATOCRIT Routine 08/13/2024 8:01 AM EST HEMOGLOBIN Routine 08/13/2024 8:01 AM EST CORTISOL FREE, URINE, 24 HOUR Routine 08/13/2024 7:00 AM EST CREATININE, 24 HR GROUP Routine 08/13/2024 7:00 AM EST CANCELLED HEMATOLOGY Routine 08/10/2024 2:04 PM EST TESTOSTERONE, FREE (DIALYSIS) AND TOTAL,MS Routine 08/10/2024 2:04 PM EST PSA, TOTAL Routine 08/10/2024 2:04 PM EST LDCT LUNG SCREENING Routine 06/18/2024 Tobacco dependence syndrome MR BRAIN W AND WO CONTRAST Routine 06/16/2024 1:09 PM EST POCT GLUCOSE Routine 05/30/2024 9:33 AM EST Type 2 diabetes mellitus without complication, without long-term current use of insulin ([facility]) HEMOGLOBIN A1C Routine 05/11/2024 11:43 AM EDT ALBUMIN, RANDOM URINE W/CREATININE Routine 02/06/2024 10:30 AM EDT Type 2 diabetes mellitus without complication, without long-term current use of insulin ([facility]) HM COLONOSCOPY Routine 05/31/2022 ZZZ HISTORICAL LIPID PANEL Routine 11/26/2020 8:33 AM EDT from Last 3 Months or Most Recently Relevant to Health Maintenance Results * (ABNORMAL) Hemoglobin (08/13/2024 8:01 AM EST) Hemoglobin 13.6(L) 14.0 - 18.0 g/dl [facility] 08/13/2024 8:01 AM EST 08/13/2024 8:01 AM EST us Generic External Data Provider LAB BLOOD ORDERAB LES Final Result [facility] [address] [place] [phone] * (ABNORMAL) Hematocrit (08/13/2024 8:01 AM EST) Hematocrit 41.4(L) 42.0 - 52.0 % [facility] 08/13/2024 8:01 AM EST 08/13/2024 8:01 AM EST Generic External Data Provider LAB BLOOD ORDERAB LES Final Result Performing Organization Address [facility] de Phone Number [facility] [address] [place] [phone] * CREATININE, 24 HR GROUP (08/13/2024 7:00 AM EST) Creatinine, 24 Hour Urine 1.0 1.0 - 2.0 G/Day [facility] Creatinine, Urine 136.42 [facility] Urine Total Volume 24 Hour 700 mL [facility] 08/13/2024 7:00 AM EST 08/13/2024 7:54 AM EST Narrative [facility] - 08/13/2024 8:57 AM EST [id number] Generic External Data Provider LAB URINE ORDERAB LES Final Result Performing Organization Address [facility] de Phone Number [facility] [address] [place] [phone] * Cortisol, Free, 24 Hour Urine (08/13/2024 7:00 AM EST) Cortisol, Free, 24 hr Urine 38.9 4.0 - 50.0 mcg/24 h [facility] Comment:This test was develo ped and its analytical performancecharacteristics have been determined by [employer].It has not been cleared or approved by FDA. This assay hasbeen validated pursuant to the CLIA regulations and is usedfor clinical purposes. Creatinine, Urine 0.99 0.50 - 2.15 g/24 h [facility] Comment:THIS TEST WAS PERFOR MED AT:[employer] [id number] [place] [address]ASDFAROB DUGGAN MD,PHD,LENO Total Volume 700 mL [facility] 08/13/2024 7:00 AM EST 08/13/2024 7:54 AM EST Narrative [facility] - 08/19/2024 7:19 PM EST [id number] Generic External Data Provider LAB BLOOD ORDERAB LES Final Result Performing Organization Address [facility]/ZIP Co de Phone Number [facility] [address] [place] [phone] * Cancelled Hematology (08/10/2024 2:04 PM EST) Cancelled Hematology SEE NOTE [facility] Comment:THE FOLLOWING TESTS WERE CANCELLED: HGB,HCTREASON: CLOTTED 08/10/2024 2:04 PM EST 08/10/2024 2:04 PM EST Generic External Data Provider HISTORICAL/NON OR DERABLE LABS Final Result Performing Organization Address [facility] Co de Phone Number [facility] [address] [place] [phone] * (ABNORMAL) Testosterone, Free (Dialysis) And Total, MS (08/10/2024 2:04 PM EST) Testosterone, Total 14(A) 250 - 1100 ng/dL [facility] Comment:For additional infor suni, please refer tohttp://education.MicroCH[employer].Flowboard/faq/[email or web address](This link is being provided for informational/educational purposes only.)This test was developed and its analytical performancecharacteristics have been determined by [employer] [place], [place]. It hasnot been cleared or approved by the U.S. Food and DrugAdministration. This assay has been validated pursuantto the CLIA regulations and is used for clinicalpurposes. Testosterone, Free 1.8(A) 35.0 - 155.0 pg/mL [facility] Comment:This test was develo ped and its analytical performancecharacteristics have been determined by [employer] [place], [place]. It hasnot been cleared or approved by the U.S. Food and DrugAdministration. This assay has been validated pursuantto the CLIA regulations and is used for clinicalpurposes.THIS TEST WAS PERFORMED AT:[employer] [place] [address]YJDEYLTKENNEDY MEJIAS MD,PHD 08/10/2024 2:04 PM EST 08/10/2024 2:04 PM EST us Generic External Data Provider LAB BLOOD ORDERAB LES Final Result Performing Organization Address City/[facility]/ZIP Co de Phone Number [facility] [address] [place] [phone] * PSA,Total (08/10/2024 2:04 PM EST) Prostate Specific Antigen <0.10 <0.05 - 4.0 ng/mL [facility] Comment:PSA methodology: Khadar Calle i ChemiluminescentMicroparticle Immunoassay (CMIA) 08/10/2024 2:04 PM EST 08/10/2024 2:04 PM EST us Generic External Data Provider LAB BLOOD ORDERAB LES Final Result Performing Organization Address City/[facility]/ZIP Co de Phone Number [facility] [address] [place] [phone] * CT Lung Screening Low dose (06/18/2024) Anatomical Region Laterality Modality Lung Computed Tomogra phy us Livia Ramesh MD IMG CT PROCEDURES Final Res ult * Mr Brain w/ and w/o Contrast (06/16/2024 1:09 PM EST) Anatomical Region Laterality Modality Brain Magnetic Resonan ce 06/16/2024 1:09 PM EST Narrative 08/06/2024 2:43 PM EST ? [facility] ?[address] ?[place] [address] ? Magnetic Resonance Report ? Signed ? Patient: Coronel,Baljeet ?MR#: [id number] ?? [id number] ? : 1965 ?Acct:[id number] ? Age/Sex: 59 / M ?ADM Date: 06/16/24 ? Loc: HO.MRI ? Attending Dr: Grey Tinajero MD ? Ordering Physician: Grey Tinajero MD ?? Date of Service: 06/16/24 ?? Procedure(s): MR head/brain wo/w con ?? Accession Number(s): [id number] ? cc: Livia Ramesh MD; Grey Tinajero [...] DD/ 1309 ? TD/TT: 06/16/24 1430 ? Continuous Conveyor Screen Drier: ? Procedure Note Yeison, Image - 08/06/2024 [place] [address] Magnetic Resonance Report Signed Patient: Ila Coronel#: [id number] : 1965Acct:[id number] Age/Sex: 59 / MADM Date: 06/16/24 Loc: HO.MRI Attending Dr: Grey Tinajero MD Ordering Physician: Grey Tinajero MD Date of Service: 06/16/24 Procedure(s): MR head/brain wo/w con Accession Number(s): [id number] cc: Livia Ramesh MD; Grey Tinajero MD [...] 08/06/24 1440 DD/ 1309 TD/TT: 06/16/24 1430 Continuous Conveyor Screen Drier: [facility] External Provider IMG MRI PROCEDURES Final Result * POCT Glucose (05/30/2024 9:33 AM EST) Glucose Blood, POC 113 60 - 200 mg/dL QC Media Lot # [id number] Lot# Expiration Date ,334,157 Blood Capillary blood specimen / Unknown 05/30/2024 9:33 AM EST Livia Ramesh MD POINT OF CARE TEST ENTER/ED IT ORDERABLES Final Result * Hemoglobin A1c (05/11/2024 11:43 AM EDT) Blood Venous blood specimen / Unknown Historical Provider LAB BLOOD ORDERABLES Lisa l Result * Albumin, Random Urine W/Creatinine (02/06/2024 10:30 AM EDT) Creatinine, Urine 110.20 mg/dL [facility] Microalbumin Urine <5.0 mg/L [facility] Microalbum Creatinine Ratio Ur TNP <30 ug/mg cr [facility] Comment:Unable to calculate albumin/creatinine ratio due to lowmicroalbumin or creatinine result. Urine (Urine, Random) 02/06/2024 10:30 AM EDT 02/06/2024 9:48 PM EDT Result [facility] Livia Ramesh MD LAB URINE ORDERABLES Final Result [facility] [address] [place] [phone] * Hm Colonoscopy (05/31/2022) Colonoscopy Normal Normal Narrative Maya Gary - 05/31/2022 Recommended 3 year follow up Historical Provider HEALTH MAINTENANCE Final Result * LIPID PANEL (11/26/2020 8:33 AM EDT) Cholesterol 90 mg/dL [facility] Comment: Desirable Cholesterol: ?less than 200 mg/dL Borderline High Cholesterol: ??200-239 mg/dL High Cholesterol: ? greater than 239 mg/dL HDL Cholesterol 36 mg/dL [facility] Comment: Desirable HDL: ??greater than 40 mg/dL ?? Note: This HDL assay may give artificially ? low results in patients with liver disease. LDL Cholesterol Calculated 48 mg/dl [facility] Comment: Desirable LDL: ? less than 100 mg/dL Near Optimal/Above Optimal LDL: ??110-129 mg/dL Borderline High LDL: ? 130-159 mg/dL High LDL: ?160-189 mg/dL Very High LDL: ? greater than or equal to ?190 mg/dL Triglycerides 34 mg/dL [facility] Comment: Desirable Triglyceride: ? less than 150 mg/dL Borderline High Triglyceride ??150-199 mg/dL High Triglyceride: ?200-499 mg/dL Very High Triglyceride: ? greater than or equal to ? 5OO mg/dL 11/26/2020 8:33 AM EDT us Historical Provider HISTORICAL/NON ORDERABLE LABS Final Result [facility] [address] from Last 3 Months or Most Recently Relevant to Health Maintenance Insurance [facility] Care Teams [employer] Worker Relationship Specialty Start Date End Date Livia Ramesh MD [address] [place] [address] A[place] Torres [phone] PCP - General Internal Medicine 07/25/18 Home [facility] 08/21/18
--- OUTSIDE RECORDS SUMMARY | 2024-08-21 08:12 | XMS_ITS | Encounter Summary ---
Author Organization [employer] Address [address] [place] [address] Care Team Providers Care Lay Out Machine Operator Name Role Phone Livia Ramesh MD Primary Care Provider [phone] Encounter Details Date Type Department Care Team (Late st Contact Info) Description 05/27/2023 Abstract [facility] [address] [place] [address] Livia Ramesh MD [address] [place], [place] [phone] Social History Tobacco Use Types Packs/Day Years [...] Procedure Name Priority Date/Time Associated Diagnosis Comments COLONOSCOPY Routine 05/31/2022 documented in this encounter Results * Hm Colonoscopy (05/31/2022) Colonoscopy Normal Normal Narrative Maya Gary - 05/31/2022 Recommended 3 year follow up Historical Provider HEALTH MAINTENANCE Final Result documented in this encounter Visit Diagnoses Not on filedocumented in this encounter Additional Health Concerns Assessment Noted Time PHQ-9 Depression Total Score: 1 05/18/20 23 9:54 AM EDT documented as of this encounter Care Teams Lay Out Machine Operator Relationship Specialty Start Date End Date Livia Ramesh MD [address] [place] [phone] PCP - General Internal Medicine 07/25/18 [facility] 08/21/18 documented as of this encounter
--- OUTSIDE RECORDS SUMMARY | 2024-08-21 08:12 | XMS_ITS | Encounter Summary ---
Author Organization [employer] Address [address] [facility] 7t [place] [address] Care Team Providers Care Mosaic Tile Maker Name Role Phone Livia Ramesh MD Primary Care Provider [phone]- [phone] Reason for Visit * Reason Comments Med Refill Encounter Details Date Type Department Care Team ([facility] st Contact Info) Description 08/15/2024 Refill [facility] CHC MED & PEDS [address] [place], [place] [phone] Livia Ramesh MD [address] [place] [address] Type 2 diabetes mellitus without complication, without long-term current use of insulin ([facility]) Social History Tobacco Use Types Packs/Day Years [...] as of this encounter Visit Diagnoses Diagnosis Type 2 diabetes mellitus without complication, without long-term current use of insulin ([facility]) documented in this encounter Additional Health Concerns Assessment Noted Time PHQ-9 Depression Total Score: 1 05/18/20 23 9:54 AM EDT documented as of this encounter Care Teams Mosaic Tile Maker Relationship Specialty Start Date End Date Livia Ramesh MD [address] [place] [id number] PCP - General Internal Medicine 07/25/18 [facility] 08/21/18 documented as of this encounter
--- OUTSIDE RECORDS SUMMARY | 2024-08-21 08:12 | XMS_ITS | Encounter Summary ---
Author Organization [employer] Address [address] [facility] 7[address] [place] [address] Care Team Providers Care Licensed Practical Nurse Instructor Name Role Phone Livia Ramesh MD Primary Care Provider [phone]- [phone] Reason for Visit * Reason Onset Date Comments Prior Authorization 08/03/2024 Encounter Details Date Type Department Care Team ([facility] st Contact Info) Description 08/03/2024 Telephone [facility] CHC MED & PEDS [address] [place] [address] Livia Ramesh MD [address] [place] [address] Prior Authorization Social History Tobacco Use Types Packs/Day Years [...] encounter Miscellaneous Notes * Telephone Encounter - Maryanne Ward LPN - 08/03/2024 4:25 PM EST Pa generated via CMM pending desicion documented in this encounter Plan of Treatment Not on file documented as of this encounter Visit Diagnoses Not on filedocumented in this encounter Additional Health Concerns Assessment Noted Time PHQ-9 Depression Total Score: 1 05/18/20 23 9:54 AM EDT documented as of this encounter Care Teams Licensed Practical Nurse Instructor Relationship Specialty Start Date End Date Livia Ramesh MD [address] [place] [id number] PCP - General Internal Medicine 07/25/18 [facility] 08/21/18 documented as of this encounter
--- OUTSIDE RECORDS SUMMARY | 2024-08-21 08:12 | XMS_ITS | Encounter Summary ---
Author Organization [employer] Address [address] [facility] 7t [place] [address] Care Team Providers Care Group Marketing Vp Name Role Phone Livia Ramesh MD Primary Care Provider [phone]- [phone] Reason for Visit * Reason Comments Med Refill Encounter Details Date Type Department Care Team ([facility] st Contact Info) Description 08/15/2024 Refill [facility] CHC MED & PEDS [address] [place], [place] [phone] Livia Ramesh MD [address] [place] [address] Type 2 diabetes mellitus without complication, without long-term current use of insulin ([facility]) Social History Tobacco Use Types Packs/Day Years [...] complication, without long-term current use of insulin ([facility]) documented in this encounter Additional Health Concerns Assessment Noted Time PHQ-9 Depression Total Score: 1 05/18/20 23 9:54 AM EDT documented as of this encounter Care Teams Group Marketing Vp Relationship Specialty Start Date End Date Livia Ramesh MD [address] [place] [id number] PCP - General Internal Medicine 07/25/18 [facility] 08/21/18 documented as of this encounter
--- OUTSIDE RECORDS SUMMARY | 2024-08-21 08:12 | XMS_ITS | Encounter Summary ---
Author Organization [employer] Address [address] [facility] 7[address] [place] [address] Care Team Providers Care Incident Response Analyst Name Role Phone Livia Ramesh MD Primary Care Provider [phone]- [phone] Reason for Visit * Reason Comments Med Refill Encounter Details Date Type Department Care Team ([facility] st Contact Info) Description 05/02/2024 Refill [facility] CHC MED & PEDS [address] [place], [place] [phone] Livia Ramesh MD [address] [place], [place] [phone] COPD mixed type (CMS/HCC) Social History Tobacco Use Types Packs/Day Years [...] as of this encounter Visit Diagnoses Diagnosis COPD mixed type (CMS/HCC) documented in this encounter Additional Health Concerns Assessment Noted Time PHQ-9 Depression Total Score: 1 05/18/20 23 9:54 AM EDT documented as of this encounter Care Teams Incident Response Analyst Relationship Specialty Start Date End Date Livia Ramesh MD [address] [place] [id number] PCP - General Internal Medicine 07/25/18 [facility] 08/21/18 documented as of this encounter
[2024-08-21 08:28] VITALS: BP 134/76; PULSE 74; BMI 33.1
--- NOTE | 2024-08-21 08:28 | A.OFFVIS_ITS ---
Vital Signs 08/21/24 08:28 Height 5 ft 7 in Weight 211 lb 10.3 oz BMI 33.1 BP 134/76 Blood Pressure Location Rt brachial Position Sitting Pulse 74 Pulse Source Pulse Oximeter Intake Visit Reasons: Pituitary microadenoma Intake Note: Patient present today for Pituitary macroadenoma follow up visit. Furnace Caretaker Required: Yes Furnace Caretaker Language: Slovenian Information Interpreted: non-clinical & clinical Accompanied by: Self / Same As Patient Allergies No Known Allergies [No Known Allergies*] Allergy (Verified 03/25/24 12:48) Medication List - Last Reconciled 08/21/24 by Grey Tinajero MD albuterol sulfate 90 mcg/actuation (ProAir HFA) 2 puffs inhalation Q6H PRN bupropion HCl SR (Wellbutrin SR) 150 mg PO BID celecoxib 0 mg PO cephalexin 500 mg PO QID 7 days dexamethasone 1 mg PO DAILY doxycycline hyclate 100 mg PO BID 7 days ferrous sulfate (FeroSul) 325 mg PO Q OTHER DAY fluticasone propion-salmeterol 250-50 mcg/dose (Wixela Inhub) 1 inh inhalation BID gabapentin 100 mg PO BEDTIME ipratropium-albuterol 20-100 mcg/actuation (Combivent Respimat) 1 puff inhalation QID lidocaine 5% 5 appl topical DAILY methadone 52 mg PO DAILY omeprazole 20 mg PO DAILY pantoprazole 1 tab PO DAILY polyethylene glycol 3350 8.5 grams PO DAILY PRN propranolol 1 tab PO BID risperidone 2 mg PO BEDTIME testosterone (AndroGel) 1 packet transdermal DAILY 30 days trazodone 1 tab PO BEDTIME HPI Comments Details: 59 YO Male with PMHx Hypogonadism who is seen in F/U for a pituitary microadenoma and hypogonadism. First diagnosed with Hypogonadism in the early 1999's. Was started on Testosterone supplementation with androgel. Stopped this in 2018. He is unsure why this was stopped. We checked labs after our initial visit, and this revealed hypogonadotropic hypogonadism. Pituitary MRI was checked 01/28/21 which revealed a 0.9 cm pituitary microadenoma. There did not appear to be encroachment on the optic apparatus. A full pituitary panel was checked which confirmed hypogonadotropic hypogonadism, but was otherwise WNL. Prolactin was WNL, but unfortunately dilution was initially not assessed. Prolactin was repeated, including by dilution, and both were WNL. He was started on Androgel 1 packet transdermal daily. Testosterone was at goal on this, but he stopped it of his own accord. Repeat testosterone levels after 2 months off treatment were WNL, so he was not resumed on androgel. Levels were repeated again and now are in hypogonadal range. He was again resumed on androgel 1 packet transdermal daily, but has not yet repeated labs. Pituitary MRI was repeated 02/03/2023 and was unchanged from prior. He does complain of headaches, but denies blurred vision and double vision. He does report pressure/pain in the right eye. He was referred to Ophtho and underwent a visual field exam 05/28/2021. Visual castillo were WNL at that time. He was asked to F/U again with optho but has not yet done so. He has an appointment for January. He was also referred to neurosurgery due to his headaches, and has his appointment coming up next month. He did have a DXA which reveals osteopenia at all sites. with children who were conceived spontaneously. He does have VICTORIA and uses his CPAP nightly. Denies gynecomastia or galactorrhea. Denies any history of DVT or PE. Pituitary MRI: 02/03/2023 TECHNIQUE: MRI of the brain was obtained using pituitary protocol without and following the administration of 5 mL of Gadavist intravenous contrast. FINDINGS: No focal restricted diffusion is demonstrated to suggest acute or subacute cerebral ischemia. Scattered periventricular and deep white matter T2 FLAIR hyperintensities consistent with mild underlying microangiopathy. Proportional prominence of the ventricles and sulcal spaces without evidence of obstructive hydrocephalus. No abnormal mass effect. No midline shift. Stable appearance of the hypoenhancing lesion inferior to the anterior aspect of the pituitary gland, measuring up to 0.8 x 0.6 x 0.6 cm. This lesion demonstrates T2 hyperintensity. There is no new hyperenhancing lesion demonstrated on post contrast imaging. The pituitary infundibulum is minimally deviated to the right. The suprasellar cistern remains patent. No abnormal mass effect on the optic chiasm. Normal positioning of the cerebellar tonsils. Normal arterial and venous vascular flow voids are present. No abnormal contrast enhancement. Normal, homogeneous marrow signal. Mild mucosal thickening of the paranasal sinuses. No signal abnormalities within the mastoids. MR/MR head/brain wo/w con IMPRESSION: 1.? Stable appearance of a 0.8 cm hypoenhancing lesion inferior to the anterior aspect of the pituitary gland, suggestive of a pituitary microadenoma. 2.? No acute intracranial abnormalities. No additional abnormal intracranial enhancement. 3.? Mild underlying microangiopathy and generalized cerebral volume loss. DXA: 08/24/2022 FINDINGS: AP SPINE L1-L2 (excluding L3 and L4): The data of L1-L4 has been changed to exclude the L3 and L4 vertebral bodies, because degenerative changes at these levels may cause overestimation of lumbar spine density. BMD 0.988 g/cm2, Z-score -2.2, T-score -1.8, osteopenia. LEFT FEMUR, NECK: BMD 0.892 g/cm2, Z-score -1.0, T-score -1.4, osteopenia. LEFT FEMUR, TOTAL: BMD 1.017 g/cm2, Z-score -0.6, T-score -0.6, normal. Labs: Laboratory Tests 03/08/22 03/08/22 08/19/22 09:07 09:07 07:17 Sodium 140 Potassium 4.1 Creatinine 0.85 Estimated GFR > 60 Osmolality Prostate Specific Ag 0.08 25-OH Vitamin D Total 30.6 TSH 1.67 Free T4 2.06 H Total T3 FSH 2.4 Luteinizing Hormone 0.9 L Prolactin Undiluted 5.5 Total Testosterone 21 L Fr Testosterone Dialys 3.8 L Sex Hormone Bind Glob Random Cortisol ACTH 08/19/22 08/19/22 08/19/22 07:17 07:17 07:17 Sodium Potassium Creatinine Estimated GFR Osmolality 293 Prostate Specific Ag 25-OH Vitamin D Total TSH Free T4 Total T3 99 FSH Luteinizing Hormone Prolactin Undiluted Total Testosterone Fr Testosterone Dialys Sex Hormone Bind Glob 28 Random Cortisol ACTH 32 08/19/22 07:17 Sodium Potassium Creatinine Estimated GFR Osmolality Prostate Specific Ag 25-OH Vitamin D Total TSH Free T4 Total T3 FSH Luteinizing Hormone Prolactin Undiluted Total Testosterone Fr Testosterone Dialys Sex Hormone Bind Glob Random Cortisol 16.3 ACTH Not taking testosterone. C/O loss of libido. Decreased muscular mass. Uses CPAP mask . No bone fx . Continues to have headache. Recent MRI showed stability in the size of the macroadenoma [facility] Medical History Osteopenia Goiter Pituitary microadenoma Hypogonadotropic hypogonadism Hypogonadism in male Vitamin D deficiency Hypogonadism Thrombocytopenia Osteoarthritis Myalgia Sleep apnea Colon polyps Hepatitis C VICTORIA (obstructive sleep apnea) COPD (chronic obstructive pulmonary disease) Surgical History Hx of carpal tunnel repair Family History Maternal Aunt Cancer Father Diabetes Paternal Aunt Diabetes Paternal Aunt Diabetes Social History Alcohol intake: former Patient Tobacco Use Status: Current everyday Tobacco user Cigarette Packs Per Day: 10 Years Smoked: 45 Substance Use Type: Prescription Drugs Physical Exam Vital Signs: BMI result Body Mass Index 33.1 Assessment & Plan Assessment & Plan (1) Hypogonadotropic hypogonadism: Code(s): E23.0 - Hypopituitarism Category: Medical Plan: This is a 59-year-old male with a history of secondary hypogonadism. He was being replaced on testosterone gel 50 g 1 packet per day. Plan is to reinitiate testosterone. Will recheck testosterone, PSA and CBC in about 6 weeks' time. Went over side effects of testosterone with patient including but not limited to enlargement of the prostate with unmasking of prostate cancer, polycythemia and DVT. The patient was told to call should he run outof testosterone (2) Pituitary microadenoma: Code(s): D35.2 - Benign neoplasm of pituitary gland Category: Medical Plan: History of pituitary micro- adenoma appears to be non secretory with stability in the size on the MRI Will continue to follow Orders: Orders Testosterone, Free/Total 6 Weeks E23.0 - Hypopituitarism Hematocrit 6 Weeks E23.0 - Hypopituitarism Hemoglobin 6 Weeks E23.0 - Hypopituitarism Prostate Specific Antigen 6 Weeks E23.0 - Hypopituitarism Medications: Refilled testosterone (AndroGel) 1 packet transdermal DAILY 30 days 150 grams 2RF E23.0 - Hypopituitarism Coding Level of Care Code Est Pt Level 3 (69139) Diagnoses Hypogonadotropic hypogonadism E23.0 Pituitary microadenoma D35.2
== END 2024-08-21 08:42 | disposition home or self-care (01) ==
PROVIDERS: PCP Internal Medicine; Visit Provider Internal Medicine Endocrinology, Diabetes & Metabolism
DX: E23.0 Hypopituitarism (principal); D35.2 Benign neoplasm of pituitary gland
CPT/HCPCS: 99213

== ENCOUNTER → 2024-08-21 08:05 | Outpatient (BNVA) | payer OTHER, SELFPAY | PROVIDERS: PCP Internal Medicine; Visit Provider Internal Medicine Endocrinology, Diabetes & Metabolism | DX: E23.0 Hypopituitarism (principal); D35.2 Benign neoplasm of pituitary gland | CPT/HCPCS: 99212 ==

== ENCOUNTER 2024-11-12 10:57 | Outpatient (REF) | payer OTHER, SELFPAY ==
--- NOTE | ~2024-11-12 | XR_ITS ---
CLINICAL HISTORY: right shoulder pain Right shoulder five views Comparison: None Findings: No acute fracture or dislocation identified. Severe degenerative change glenohumeral joint. No radiopaque foreign body noted. Impression: Severe degenerative change No acute bony abnormality This document has been electronically signed by: Ronny Bowers MD on 11/13/2024 19:15:40
--- OUTSIDE RECORDS SUMMARY | 2024-11-12 11:00 | XMS_ITS | Encounter Summary ---
Author Organization [employer] [facility] Address [address] [facility] [address] [place] [address] Care Team Providers Care Welder Metal Fab Name Role Phone Livia Ramesh MD Primary Care Provider [phone]- [phone] Encounter Details Date Type Department Care Team (Late st Contact Info) Description 07/22/2022 Orders Only [facility] MED & PEDS [address] [place] [address] Lisha John RN [address] [place], [place] [phone] Social History Tobacco Use Types Packs/Day Years Used Date Smoking Tobacco: Never Assessed Sex and Gender Information Value Date Recorded Sex Assigned at Male 05/24/2022 10:18 AM EDT Legal Sex Male 10:18 AM EDT Gender Identity Male 05/24/2022 10:18 AM EDT Sexual Orientation Straight 05/24/2022 10 :18 AM EDT documented as of this encounter Plan of Treatment Upcoming Encounters Date Type Department Care Team (Late st Contact Info) Description 12/04/2024 9:00 AM EDT Office Visit [facility] P[facility] [address] [place] [address] Livia Ramesh MD [address] [place] [address] documented as of this encounter Procedures Procedure [...] And Total, MS (09/20/2022 7:23 AM EST) [facility] Signature Testosterone, Total 23(A) 250 - 1100 ng/dL [facility] Comment:For additional infor suni, please refer tohttp://education.[employer].LocalBanya/faq/[email or web address](This link is being provided for informational/educational purposes only.)This test was developed and its analytical performancecharacteristics have been determined by [employer] [place], [place]. It hasnot been cleared or approved by the U.S. Food and DrugAdministration. This assay has been validated pursuantto the CLIA regulations and is used for clinicalpurposes. Testosterone, Free 4.2(A) 35.0 - 155.0 pg/mL [facility] Comment:This test was develo ped and its analytical performancecharacteristics have been determined by [employer] [place], [place]. It hasnot been cleared or approved by the U.S. Food and DrugAdministration. This assay has been validated pursuantto the CLIA regulations and is used for clinicalpurposes.THIS TEST WAS PERFORMED AT:[employer] [id number] [place] [address]TQUXBAIKENNEDY MEJIAS MD,PHD 09/20/2022 7:23 AM EST 09/20/2022 7:23 AM EST [facility] External Provider LAB BLO OD ORDERABLES Final Result [facility] [address] [place] [phone] * Sex Hormone Binding Globulin (SHBG) (09/20/2022 7:23 AM EST) Sex Hormone Binding Globulin 25 22 - 77 nmol/L [facility] Comment:THIS TEST WAS PERFOR MED AT:[employer] [address] [address]QWBIBJONG VOGEL MD 09/20/2022 7:23 AM EST 09/20/2022 7:23 AM EST [facility] External Provider LAB BLO OD ORDERABLES Final Result Performing Organization Address [facility] Phone Number [facility] [address] [place] [phone] * PSA,Total (09/20/2022 7:23 AM EST) Prostate Specific Antigen 0.14 <0.05 - 4.0 ng/mL [facility] Comment:PSA methodology: Khadar Calle i ChemiluminescentMicroparticle Immunoassay (CMIA) 09/20/2022 7:23 AM EST 09/20/2022 7:23 AM EST [facility] External Provider LAB BLO OD ORDERABLES Final Result Performing Organization Address [facility] Phone Number [facility] [address] [place] [phone] * (ABNORMAL) Hematocrit (09/20/2022 7:23 AM EST) Hematocrit 41.9(L) 42.0 - 52.0 % [facility] 09/20/2022 7:23 AM EST 09/20/2022 7:23 AM EST [facility] External Provider LAB BLO OD ORDERABLES Final Result Performing Organization Address [facility] de Phone Number [facility] [address] [place] [phone] * (ABNORMAL) Hemoglobin (09/20/2022 7:23 AM EST) Hemoglobin 13.6(L) 14.0 - 18.0 g/dl [facility] 09/20/2022 7:23 AM EST 09/20/2022 7:23 AM EST [facility] External Provider LAB BLO OD ORDERABLES Final Result Performing Organization Address [facility]/ZIP Co de Phone Number [facility] [address] [place] [address] [phone] * (ABNORMAL) Testosterone, Free (Dialysis) And Total, MS (08/19/2022 7:17 AM EST) Pathologist [facility] Testosterone, Total 37(A) 250 - 1100 ng/dL [facility] Comment:For additional infor matbrenda, please refer tohttp://education.[employer]/faq/EzceoNdlvlnqapfhjJIKLJUKYW699(This link is being provided for informational/educational purposes only.)This test was developed and its analytical performancecharacteristics have been determined by [employer] [place], [place]. It hasnot been cleared or approved by the U.S. Food and DrugAdministration. This assay has been validated pursuantto the CLIA regulations and is used for clinicalpurposes. Testosterone, Free 5.6(A) 35.0 - 155.0 pg/mL [facility] Comment:This test was develo ped and its analytical performancecharacteristics have been determined by [employer] [place] [place]. It hasnot been cleared or approved by the U.S. Food and DrugAdministration. This assay has been validated pursuantto the CLIA regulations and is used for clinicalpurposes.THIS TEST WAS PERFORMED AT:[employer] [id number] [place] [address]RXMHSTWKENNEDY MEJIAS MD,PHD 08/19/2022 7:17 AM EST 08/19/2022 7:17 AM EST [facility] External Provider LAB BLO OD ORDERABLES Final Result [facility] [address] [place] [phone] [phone] * IGF-1, LC/MS (08/19/2022 7:17 AM EST) [facility] IGF 1, LC/MS 91 50 - 317 ng/mL [facility] Z Score (Male) -0.8 -2.0 - 2.0 SD [facility] Comment:This test was develo ped and its analytical performancecharacteristics have been determined by [facility]. It has not beencleared or approved by FDA. This assay has been validatedpursuant to the CLIA regulations and is used for clinicalpurposes.THIS TEST WAS PERFORMED AT:[employer] [id number] [place] [address]BGNVGROB DUGGAN MD,PHD,LENO Z Score (Female) [facility] 08/19/2022 7:17 AM EST 08/19/2022 7:17 AM EST [facility] External Provider LAB BLO OD ORDERABLES Final Result [facility] [address] [place] [phone] * Prolactin, Dilution Study (08/19/2022 7:17 AM EST) [facility] Prolactin, Undiluted 6.7 2.0 - 18.0 ng/mL [facility] Prolactin, Diluted SEE NOTE 2.0 - 18.0 ng/mL [facility] Comment:Result confirmed by 1:100 dilution. No high dosehook effect detected.Prolactin dilution studies are done to determine ifthere is a high-dose hook effect (i.e. a non-linearassay response due to a very high concentration ofProlactin). This is reported to occur at Prolactinconcentrations at or above 30,000 ng/mL.This test is not recommended for identifyingmacroprolactin. [facility], Prolactin, Total and Monomeric is therecommended test (Order code [id number]).THIS TEST WAS PERFORMED AT:[employer] [address] ([address])[place] [address]PPCKVJONG VOGEL MD 08/19/2022 7:17 AM EST 08/19/2022 7:17 AM EST [facility] External Provider LAB BLO OD ORDERABLES Final Result Performing Organization Address [facility] Co de Phone Number [facility] [address] [place] [phone] * (ABNORMAL) LH (08/19/2022 7:17 AM EST) Lutenizing Hormone 0.6(A) 1.5 - 9.3 mIU/mL [facility] Comment:THIS TEST WAS PERFOR MED AT:[facility] [place] [address] ([facility])[place] [address]XBPXIJONG VOGEL MD 08/19/2022 7:17 AM EST 08/19/2022 7:17 AM EST [facility] External Provider LAB BLO OD ORDERABLES Final Result Performing Organization Address [facility] de Phone Number [facility] [address] [place] [phone] * FSH (08/19/2022 7:17 AM EST) Follicle Stimulating Hormone 3.4 1.6 - 8.0 mIU/mL [facility] Comment:THIS TEST WAS PERFOR MED AT:[employer] [address] ([address])[place] [address]VGOEHJONG VOGEL MD 08/19/2022 7:17 AM EST 08/19/2022 7:17 AM EST [facility] External Provider LAB BLO OD ORDERABLES Final Result Performing Organization Address [facility] Co de Phone Number [facility] [address] [place] [phone] * Sex Hormone Binding Globulin (SHBG) (08/19/2022 7:17 AM EST) Sex Hormone Binding Globulin 28 22 - 77 nmol/L [facility] Comment:THIS TEST WAS PERFOR MED AT:[employer] [address] ([facility] [address]PDXGSJILLIAN VOGEL MD 08/19/2022 7:17 AM EST 08/19/2022 7:17 AM EST [facility] External Provider LAB BLO OD ORDERABLES Final Result [facility] [address] [place] [phone] * T3, Total (08/19/2022 7:17 AM EST) Pathologist [facility] T3, Total 99 76 - 181 ng/dL [facility] Comment:THIS TEST WAS PERFOR MED AT:[employer] [address] ([facility] [address]UZXSUJONG VOGEL MD 08/19/2022 7:17 AM EST 08/19/2022 7:17 AM EST [facility] External Provider LAB BLO OD ORDERABLES Final Result Performing Organization Address City/[facility]/ZIP Co de Phone Number [facility] [address] [place] [phone] [phone] * ACTH, Plasma (08/19/2022 7:17 AM EST) ACTH, Plasma 32 6 - 50 pg/mL [facility] Comment:Reference range appl ies only to specimenscollected between 7am-10amTHIS TEST WAS PERFORMED AT:[employer] [address] ([facility] [address]LIDDVJILLIAN VOGEL MD 08/19/2022 7:17 AM EST 08/19/2022 7:17 AM EST [facility] External Provider LAB BLO OD ORDERABLES Final Result Performing Organization Address City/[facility]/ZIP Co de Phone Number [facility] [address] [place] [phone] * Osmolality, Serum (08/19/2022 7:17 AM EST) Osmolality (Serum) 293 281 - 305 mosm/kg [facility] 08/19/2022 7:17 AM EST 08/19/2022 7:17 AM EST [facility] External Provider LAB BLO OD ORDERABLES Final Result Performing Organization Address [facility] Co de Phone Number [facility] [address] [place] [phone] * Cortisol Random (08/19/2022 7:17 AM EST) Pathologist [facility] Cortisol Random 16.3 ug/dL [facility] Comment:Reference Range*: Be fore 10 am 6.2-19.4 ug/dL After 5 pm 2.3-11.9 ug/dL*Please interpret above results accordingly.This test was performed using the Picarro chemiluminescentmethod. Values obtained from different assay methods cannotbe used interchangeably.Patients receiving fludrocortisone, prednisolone orprednisone may show artificially elevated cortisol valuesdue to cross-reactivity. 08/19/2022 7:17 AM EST 08/19/2022 7:17 AM EST [facility] External Provider LAB BLO OD ORDERABLES Final Result Performing Organization Address [facility]/ZIP Co de Phone Number [facility] [address] [place] [phone] * TSH (08/19/2022 7:17 AM EST) Thyroid Stimulating Hormone 1.67 0.32 - 4.0 uIU/mL [facility] Comment:TSH 3rd Generation ( [facility]) 08/19/2022 7:17 AM EST 08/19/2022 7:17 AM EST [facility] External Provider LAB BLO OD ORDERABLES Final Result Performing Organization Address [facility] Co de Phone Number [facility] [address] [place] [phone] * (ABNORMAL) T4, Free (08/19/2022 7:17 AM EST) Free T4 (Free Thyroxine) 2.06(H) 0.71 - 1.85 ng/dL [facility] 08/19/2022 7:17 AM EST 08/19/2022 7:17 AM EST [facility] External Provider LAB BLO OD ORDERABLES Final Result Performing Organization Address [facility] de Phone Number [facility] [address] [place] [phone] * (ABNORMAL) Basic Metabolic Panel (08/19/2022 7:17 AM EST) Pathologist [facility] Sodium 140 135 - 145 mmol/L [facility] Potassium 4.1 3.3 - 5.1 mmol/L [facility] Chloride 103 96 - 108 mmol/L [facility] Carbon Dioxide 26 22 - 29 mmol/L [facility] Anion Gap 15 12 - 20 [facility] Urea Nitrogen (BUN) 17(H) 9 - 16 mg/dL [facility] Creatinine, Serum 0.85 0.5 - 1.4 mg/dL [facility] Estimated Glomerular Filt Rate >60 [facility] Comment:NOTE: For -Am erican individuals, multiply the result by 1.210.Chronic Kidney Disease: Estimated GFR < 60 mL/min/1.99a1Sdkxcw Kidney Disease: Estimated GFR < 15 mL/min/1.73m2 Glucose 114 60 - 115 mg/dL [facility] Calcium 9.1 8.4 - 10.2 mg/dL [facility] 08/19/2022 7:17 AM EST 08/19/2022 7:17 AM EST us [facility] External Provider LAB BLO OD ORDERABLES Final Result [facility] [address] [place] [phone] [phone] documented in this encounter Visit Diagnoses Not on filedocumented in this encounter Care Teams Welder Metal Fab Relationship Specialty Start Date End Date Livia Ramesh MD [address] [place] [phone] PCP - General Internal Medicine 07/25/18 [facility] 08/21/18 documented as of this encounter
--- OUTSIDE RECORDS SUMMARY | 2024-11-12 11:00 | XMS_ITS | Encounter Summary ---
Author Organization [employer] Address [address] [facility] [address]t [place] [address] Care Team Providers Care Loading Rack Supervisor Name Role Phone Livia Ramesh MD Primary Care Provider [phone]- [phone] Encounter Details Date Type Department Care Team ([facility] st Contact Info) Description 11/07/2024 Telephone [facility] MED & PEDS [address] [place], [place] [phone] Livia Ramesh MD [address] [place], [place] [phone] Social History Tobacco Use Types Packs/Day Years [...] encounter Miscellaneous Notes * Telephone Encounter - Landon Alejandre - 11/09/2024 9:07 AM EDT Tc from Leobardo with [facility] requesting status of order for CT of chest without contrast. FAX [phone] * Telephone Encounter - Lela Fisher - 11/07/2024 12:49 PM EDT Tc from Leobardo with [facility] requesting a corrected order for ct lung screening pt has alreadybeen seen for lung screening on 06/18/24. CT lung screening is done yearly. Order would have to be changed to CT of chest without contrast. Pt is scheduled for Tuesday11/12/24. [phone] documented in this encounter Plan of Treatment Upcoming Encounters Date Type Department Care Team (Late st Contact Info) Description 12/04/2024 9:00 AM EDT Office Visit [facility] MED [facility] PEDS [address] [place] [address] Livia Ramesh MD [address] [place] [address] documented as of this encounter Visit Diagnoses Not on filedocumented in this encounter Additional Health Concerns Assessment Noted Time PHQ-9 Depression Total Score: 1 05/18/20 23 9:54 AM EDT documented as of this encounter Care Teams Loading Rack Supervisor Relationship Specialty Start Date End Date Livia Ramesh MD [address] [place] [phone] PCP - General Internal Medicine 07/25/18 [facility] 08/21/18 documented as of this encounter
--- OUTSIDE RECORDS SUMMARY | 2024-11-12 11:01 | XMS_ITS | Encounter Summary ---
Author Organization [employer] [facility] Address [address] [place] [address] [address], [place] [address] Care Team Providers Care Healthcare Business Analyst Name Role Phone Livia Ramesh MD Primary Care Provider +1- [phone] Encounter Details Date Type Department Care Team (Late st Contact Info) Description 03/22/2023 Orders Only [facility] MED & PEDS [address] [place] [address] Katelyn Mckenzie LPN Social History Tobacco Use [...] Description 12/04/2024 9:00 AM EDT Office Visit [facility] MED & PEDS [address] [place] [address] Livia Ramesh MD [address] [place] [address] documented as of this encounter Visit Diagnoses Not on filedocumented in this encounter Care Teams Healthcare Business Analyst Relationship Specialty Start Date End Date Livia Ramesh MD [address] [place] [address] PCP - General Internal Medicine 07/25/18 [facility] 08/21/18 documented as of this encounter
--- OUTSIDE RECORDS SUMMARY | 2024-11-12 11:01 | XMS_ITS | Encounter Summary ---
Author Organization [employer] Address [address] 7[address] [place] [address] Care Team Providers Care Cutter Gas Name Role Phone Livia Ramesh MD Primary Care Provider [phone]- [phone] Encounter Details Date Type Department Care Team (Late st Contact Info) Description 05/28/2024 Orders Only [facility] MED & PEDS [address] [place], [place] [phone] ProviderKirti MD Social History Tobacco Use Types [...] Upcoming Encounters Date Type Department Care Team ([facility] st Contact Info) Description 12/04/2024 9:00 AM EDT Office Visit [facility] MED & PEDS [address] [place] [address] Livia Ramesh MD [address] [place] [address] documented as of this encounter Procedures Procedure [...] EST Narrative 08/06/2024 2:43 PM EST ? [facility] ?[address] ?[place] [address] ? Magnetic Resonance Report ? Signed ? Patient: Coronel,Baljeet ?MR#: [id number] ?? [id number] ? : 1965 ?Acct:[id number] ? Age/Sex: 59 / M ?ADM Date: 11/23/24 ? Loc: HO.MRI ? Attending Dr: Grey Tinajero MD ? Ordering Physician: Grey Tinajero MD ?? Date of Service: 06/16/24 ?? Procedure(s): MR head/brain wo/w con ?? Accession Number(s): [id number] ? cc: Livia Ramesh MD; Grey Tinajero [...] DD/ 1309 ? TD/TT: 06/16/24 1430 ? Park Warden: ? Procedure Note Donotuseinterpreter, Image - 08/06/[address] [address] Magnetic Resonance Report Signed Patient: Ila Coronel#: [id number] : 1965Acct:[id number] Age/Sex: 59 / MADM Date: 06/16/24 Loc: HO.MRI Attending Dr: Grey Tinajero MD Ordering Physician: Grey Tinajero MD Date of Service: 06/16/24 Procedure(s): MR head/brain wo/w con Accession Number(s): [id number] cc: Livia Ramesh MD; Grey Tinajero MD [...] by: Mendez Lara MD 08/06/2024 02:40 PM [facility] Dictated By: MENDEZ LARA MD Signed By: <Electronically signed by MENDEZ LARA MD in OV> 08/06/24 1440 DD/ 1309 TD/TT: 06/16/24 1430 Park Warden: [facility] External Provider IMG MRI PROCEDURES Final [...] documented as of this encounter Care Teams Cutter Gas Relationship Specialty Start Date End Date Livia Ramesh MD [address] [place] [address] PCP - General Internal Medicine 07/25/18 [facility] 08/21/18 documented as of this encounter
--- OUTSIDE RECORDS SUMMARY | 2024-11-12 11:01 | XMS_ITS | Encounter Summary ---
Author Organization [employer] Address [address] [place] [address] Care Team Providers Care Wet Press Tender Name Role Phone Livia Ramesh MD Primary Care Provider [phone]- [phone] Reason for Visit * Reason Onset Date Comments Referral 11/09/2024 Encounter Details Date Type Department Care Team ([facility] st Contact Info) Description 11/09/2024 Telephone [facility] MEDICINE [address] [place] [address] Livia Ramesh MD [address] [place], [place] [phone] Referral Social History Tobacco Use Types Packs/Day Years [...] encounter Miscellaneous Notes * Telephone Encounter - Wing Laney RN - 11/09/2024 11:50 AM EDT Please advise on CT ordered. [facility] advised cancelling current one due to last lung scan being done within the last year. They advised a new CT of chest without contrast be ordered instead. * Telephone Encounter - Mikhail Bush - 11/09/2024 9:15 AM EDT Tc from Leobardo with [facility] stating that they need a New referral order to be sent over for the Ct Lung Scan due to it being still in a year since the last time that pt got one done. Leobardo asking for that one to be cancelled and for a new one for a CT of Chest without Contrast to [facility]. If any questions contact Leobardo at [phone] Leobardo also stated that it was the third time trying to get the new order. documented in this encounter Plan of Treatment Upcoming Encounters Date Type Department Care Team ([facility] st Contact Info) Description 12/04/2024 9:00 AM EDT Office Visit [facility] MED & PEDS [address] [place] [address] Livia Ramesh MD [address] [place] [address] documented as of this encounter Visit Diagnoses Not on filedocumented in this encounter Additional Health Concerns Assessment Noted Time PHQ-9 Depression Total Score: 1 05/18/20 23 9:54 AM EDT documented as of this encounter Care Teams Wet Press Tender Relationship Specialty Start Date End Date Livia Ramesh MD [address] [place] [address] PCP - General Internal Medicine 07/25/18 [facility] 08/21/18 documented as of this encounter
--- OUTSIDE RECORDS SUMMARY | 2024-11-12 11:01 | XMS_ITS | Encounter Summary ---
Author Organization [employer] Address [address] [place] [address] Care Team Providers Care Hose Mender Name Role Phone Livia Ramesh MD Primary Care Provider +1- [phone] Encounter Details Date Type Department Care Team (Late st Contact Info) Description 05/27/2023 Abstract [facility] MEDICINE [address] [place] [address] Livia Ramesh MD [address] [place], [place] [phone] Social History Tobacco Use Types Packs/Day Years [...] 9:00 AM EDT Office Visit [facility] MED & PEDS [address] [place], [place] [phone] Livia Ramesh MD [address] [place] [address] documented as of this encounter Procedures Procedure Name Priority Date/Time Associated Diagnosis Comments COLONOSCOPY Routine 05/31/2022 documented in this encounter Results * Colonoscopy (05/31/2022) Colonoscopy Normal Normal Narrative Maya Gary - 05/31/2022 Recommended 3 year follow up Historical Provider HEALTH MAINTENANCE Final Result documented in this encounter Visit Diagnoses Not on filedocumented in this encounter Additional Health Concerns Assessment Noted Time PHQ-9 Depression Total Score: 1 05/18/20 23 9:54 AM EDT documented as of this encounter Care Teams Hose Mender Relationship Specialty Start Date End Date Livia Ramesh MD [address] [place], [place] [phone] PCP - General Internal Medicine 07/25/18 [facility] 08/21/18 documented as of this encounter
--- OUTSIDE RECORDS SUMMARY | 2024-11-12 11:01 | XMS_ITS | Encounter Summary ---
Author Organization [employer] Address [address] [facility] 7t [place] [address] Care Team Providers Care Seconds Handler Name Role Phone Livia Ramesh MD Primary Care Provider +1- [phone] Reason for Visit * Reason Comments Med Refill Encounter Details Date Type Department Care Team ([facility] st Contact Info) Description 05/02/2024 Refill [facility] CHC MED & PEDS [address] [place], [place] [phone] Livia Ramesh MD [address] [place], [place] [phone] COPD mixed type (CMS/HCC) Social History Tobacco [...] Upcoming Encounters Date Type Department Care Team ([facility] st Contact Info) Description 12/04/2024 9:00 AM EDT Office Visit [facility] MED & PEDS [address] [place] [address] Livia Ramesh MD [address] [place] [address] documented as of this encounter Visit Diagnoses Diagnosis COPD mixed type (CMS/HCC) documented in this encounter Additional Health Concerns Assessment Noted Time PHQ-9 Depression Total Score: 1 05/18/20 23 9:54 AM EDT documented as of this encounter Care Teams Seconds Handler Relationship Specialty Start Date End Date Livia Ramesh MD [address] [place] [address] PCP - General Internal Medicine 07/25/18 [facility] 08/21/18 documented as of this encounter
--- OUTSIDE RECORDS SUMMARY | 2024-11-12 11:01 | XMS_ITS | Encounter Summary ---
Author Organization [employer] Address 75 [facility] 7t [place] [address] Care Team Providers Care Care Nurse Rn Name Role Phone Livia Ramesh MD Primary Care Provider [phone]- [phone] Reason for Visit * Reason Comments Med Refill Encounter Details Date Type Department Care Team ([facility] st Contact Info) Description 08/15/2024 Refill [facility] CHC MED & PEDS 505 [place], [place] [phone] Livia Ramesh MD [address] [place], [place] [phone] Type 2 diabetes mellitus without complication, without long-term current use of insulin ([facility]) Social History Tobacco Use Types Packs/Day Years [...] Upcoming Encounters Date Type Department Care Team ([facility] st Contact Info) Description 12/04/2024 9:00 AM EDT Office Visit [facility] MED & PEDS [address] [place] [address] Livia Ramesh MD [address] [place] [address] documented as of this encounter Visit Diagnoses Diagnosis Type 2 diabetes mellitus without complication, without long-term current use of insulin ([facility]) documented in this encounter Additional Health Concerns Assessment Noted Time PHQ-9 Depression Total Score: 1 05/18/20 23 9:54 AM EDT documented as of this encounter Care Teams Care Nurse Rn Relationship Specialty Start Date End Date Livia Ramesh MD [address] [place] [address] PCP - General Internal Medicine 07/25/18 [facility] 08/21/18 documented as of this encounter
--- OUTSIDE RECORDS SUMMARY | 2024-11-12 11:01 | XMS_ITS | Encounter Summary ---
Author Organization [employer] Address [address] [facility] [address] 7t [place] [address] Care Team Providers Care Docking Pilot Name Role Phone Livia Ramesh MD Primary Care Provider +1- [phone] Encounter Details Date Type Department Care Team (Late st Contact Info) Description 10/08/2024 Orders Only [facility] MEDICINE [address] [place] [address] Livia Ramesh MD [address] [place], [place] [phone] Obesity (BMI 30-39.9) (Primary Dx) Social History Tobacco Use Types Packs/Day Years [...] Upcoming Encounters Date Type Department Care Team ([facility] st Contact Info) Description 12/04/2024 9:00 AM EDT Office Visit [facility] MED & PEDS [address] [place] [address] Livia Ramesh MD 505 [place] [address] documented as of this encounter Visit Diagnoses Diagnosis Obesity (BMI 30-39.9)- Primary documented in this encounter Additional Health Concerns Assessment Noted Time PHQ-9 Depression Total Score: 1 05/18/20 23 9:54 AM EDT documented as of this encounter Care Teams Docking Pilot Relationship Specialty Start Date End Date Livia Ramesh MD 505 [place] [address] PCP - General Internal Medicine 07/25/18 [facility] 08/21/18 documented as of this encounter
--- OUTSIDE RECORDS SUMMARY | 2024-11-12 11:01 | XMS_ITS | Encounter Summary ---
Author Organization [employer] Address 75 [facility] 7t [place] [address] Care Team Providers Care Spinner Iron Name Role Phone Livia Ramesh MD Primary Care Provider +1- [phone] Encounter Details Date Type Department Care Team ([facility] st Contact Info) Description 08/18/2023 Orders Only [facility] CHC MED & PEDS [address] [place], [place] [phone] Livia Ramesh MD 505 [place], [place] [phone] Social History Tobacco Use Types Packs/Day Years [...] [facility] MED & PEDS [address] [place] [address] Livia Ramesh MD [address] [place] [address] documented as of this encounter Visit Diagnoses Not on filedocumented in this encounter Additional Health Concerns Assessment Noted Time PHQ-9 Depression Total Score: 1 05/18/20 23 9:54 AM EDT documented as of this encounter Care Teams Spinner Iron Relationship Specialty Start Date End Date Livia Ramesh MD 505 [place] [address] PCP - General Internal Medicine 07/25/18 [facility] 08/21/18 documented as of this encounter
--- OUTSIDE RECORDS SUMMARY | 2024-11-12 11:01 | XMS_ITS | Encounter Summary ---
Author Organization [employer] Address 75 [facility] 7 [place] [address] Care Team Providers Care Roller Setter Name Role Phone Livia Ramesh MD Primary Care Provider [phone]- [phone] Reason for Visit * Reason Onset Date Comments Appointment Request 03/07/2023 Encounter Details Date Type Department Care Team (Late st Contact Info) Description 03/07/2023 Telephone [facility] CHC MED & PEDS [address] [place] [address] Livia Ramesh MD 505 [place] [address] Appointment Request Social History Tobacco Use Types [...] discuss with PCP. Please contact pt at [phone] Malay Speaker documented in this encounter Plan of Treatment Upcoming Encounters Date Type Department Care Team (Late st Contact Info) Description 12/04/2024 9:00 AM EDT Office Visit [facility] CHC MED & PEDS [address] [place] [address] Livia Ramesh MD 505 [place] [address] documented as of this encounter Visit Diagnoses Not on filedocumented in this encounter Care Teams Roller Setter Relationship Specialty Start Date End Date Livia Ramesh MD 505 [place] [address] PCP - General Internal Medicine 07/25/18 [facility] 08/21/18 documented as of this encounter
--- OUTSIDE RECORDS SUMMARY | 2024-11-12 11:01 | XMS_ITS | Clinical Summary ---
Author Organization [employer] Address [address] [facility] [address] 7[address] [place] [address] Care Team Providers Care Manager Service Desk Name Role Phone Livia Ramesh MD Primary Care Provider +1- [phone] Allergies No known active allergies Medications * This document contains information received from the source organization and may not represent a complete record from that organization. ferrous sulfate 325 (65 Fe) MG tablet take 1 Tablet every other day 03/23/20 22 Active Ventolin HFA 108 (90 Base) MCG/ACT inhalerIndication s:Mild intermittent reactive airway disease without complication INHALE 2 PUFFS EVERY 4 HOURS NEEDED FOR WHEEZING 18 g 2 02/03/20 23 Active Combivent Respimat 20-100 MCG/ACT inhaler INHALE 1 PUFF BY MOUTH FOUR TIMES DAILY 12/29/19 23 Active ipratropium (Atrovent HFA) 17 MCG/ACT inhaler Inhale. 04/07/20 10 Active nicotine (Nicoderm CQ) 7 MG/24HR patchIndications: Smoking Place 1 patch on the skin 1 (one) time each day at the same time. 30 patch 04/13/20 23 Active Combivent Respimat 20-100 MCG/ACT inhaler INHALE 1 PUFF BY MOUTH FOUR TIMES DAILY 4 g 3 04/18/20 24 Active celecoxib (CeleBREX) 200 MG capsuleIndication s:Primary osteoarthritis involving multiple joints TAKE 1 CAPSULE BY MOUTH TWICE DAILY 60 capsule 1 04/18/20 24 Active varenicline (Chantix) 0.5 MG tabletIndications :Tobacco dependence syndrome Take 1 tablet (0.5 mg) by mouth 2 times daily. Take with full glass of water.Days 1 to 3: 0.5 mg once daily. Days 4 to 7: 0.5 mg twice daily. 11 tablet 1 05/30/20 24 Active varenicline (Chantix) 1 MG tabletIndications :Tobacco dependence syndrome Take 1 tablet (1 mg) by mouth 2 times daily. Take with full glass of water. 60 tablet 3 05/30/20 24 Active albuterol 108 (90 Base) MCG/ACT inhalerIndication s:COPD mixed type (CMS/HCC) INHALE 2 PUFFS BY MOUTH EVERY 4 HOURS NEEDED FOR WHEEZING 8.5 g 3 06/04/20 24 Active glucose blood (DesignGooroouch Ultra) test strip USE DIRECTED TWICE DAILY 100 strip 11 06/25/20 24 Active Semaglutide-Weigh t Management (Wegovy) 1 MG/0.5ML solution auto-injectorIndi cations:Obesity (BMI 30-39.9) ADMINISTER 1 MG UNDER THE SKIN 1 TIME A WEEK 2 mL 1 07/30/19 25 Active metFORMIN (Glucophage) 500 MG tabletIndications :Type 2 diabetes mellitus without complication, without long-term current use of insulin (CMS/HCC) TAKE 1 TABLET BY MOUTH WITH BREAKFAST AND EVENING MEAL 60 tablet 11 08/16/19 25 Active Tirzepatide-Weigh t Management (Zepbound) 2.5 MG/0.5ML solution auto-injectorIndi cations:Type 2 diabetes mellitus without complication, without long-term current use of insulin (CMS/HCC),Obesity (BMI 30-39.9) Inject 0.5 mL (2.5 mg) under the skin 1 (one) time per week. 2 mL 1 09/06/19 25 Active ipratropium-albut rui (Combivent Respimat) 20-100 MCG/ACT inhalerIndication s:COPD mixed type (CMS/HCC) Inhale 1 puff in the morning, at noon, in the evening, and at bedtime. 4 g 09/06/19 25 2025 Active gabapentin (Neurontin) 300 MG capsuleIndication s:Primary osteoarthritis of other site,Diabetic polyneuropathy associated with type 2 diabetes mellitus (CMS/HCC) Take 1 capsule (300 mg) by mouth 3 times daily. 90 capsule 3 09/06/19 25 Active Diclofenac Sodium 1 % gelIndications:Pr imary osteoarthritis of other site,Pain of toes of both feet To apply to the affected area 3 times a day 100 g 09/06/19 25 Active Blood Glucose Monitoring Suppl (iosil EnergyStyle [place] Lite) w/Device kitIndications:Ty pe 2 diabetes mellitus without complication, without long-term current use of insulin ([facility]) Use to test blood sugar 1 times daily 1 kit 09/06/19 Active lisinopril 5 MG tabletIndications :Primary hypertension Take 1 tablet (5 mg) by mouth Once per day. 30 tablet 11 09/21/19 25 2025 Active Phentermine-Topir amate 3.75-23 MG capsule sustained-release 24 hrIndications:Obe sity (BMI 30-39.9) 1 capsule a day 30 capsule 3 10/09/19 25 Active omeprazole (PriLOSEC) [address] capsule TAKE 1 CAPSULE BY MOUTH TWICE DAILY 30 MINUTES TO 1 HOUR BEFORE A MEAL 180 capsule 1 10/30/19 25 Active omeprazole (PriLOSEC) [address] capsule TAKE 1 CAPSULE BY MOUTH TWICE DAILY 30 MINUTES TO 1 HOUR BEFORE A MEAL 180 capsule 1 07/16/20 24 2024 Discontinued Active Problems Problem Noted Date [...] 05/31/2011 Disorder of skeletal muscle 04/23/2011 Encounters Date Type Department Care Team Description 11/09/2024 Telephone [employer] [facility] [address] [place] [address] CHEST ORDER 11/09/2024 Telephone [facility] MEDICINE [address] [place] [address] Livia Ramesh MD Referral 11/07/2024 Telephone [facility] MED & PEDS [address] [place] [address] Livia Ramesh MD 10/26/2024 Orders Only [facility] MED & PEDS [address] [place] [address] Livia Ramesh MD Tobacco dependence syndrome (Primary Dx); Pulmonary nodule, right 10/26/2024 Refill [facility] MED & PEDS [address] [place] [address] Livia Ramesh MD 10/23/2024 Telephone [facility] MEDICINE [address] [place] [address] Livia Ramesh MD Medication Question 10/08/2024 Orders Only [facility] MEDICINE [address] [place] [address] Livia Ramesh MD Obesity (BMI 30-39.9) (Primary Dx) 10/08/2024 Telephone [facility] MEDICINE [address] [place] [address] Livia Ramesh MD Medication Question 10/01/2024 Telephone [facility] MED & PEDS [address] [place] [address] Livia Ramesh MD Prior Authorization 09/21/2024 Telephone [facility] MEDICINE [address] [place] [address] Livia Ramesh MD Prior Authorization 09/21/2024 Refill [facility] MEDICINE [address] [place] [address] Livia Ramesh MD Primary hypertension 09/06/2024 9:30 AM EST Office Visit [facility] MED & PEDS [address] [place] [address] Livia Ramesh MD Obesity (BMI 30-39.9) (Primary Dx); Type 2 diabetes mellitus without complication, without long-term current use of insulin (CMS/HCC); COPD mixed type (CMS/HCC); Primary osteoarthritis of other site; Diabetic polyneuropathy associated with type 2 diabetes mellitus (CMS/HCC); Pain of toes of both feet 09/06/2024 Travel 08/31/2024 Telephone [facility] MEDICINE [address] [place] [address] Livia Ramesh MD Medication Question 08/15/2024 Refill [facility] CHC MED & PEDS [address] [place] [address] Livia Ramesh MD Type 2 diabetes mellitus without complication, without long-term current use of insulin ([facility]) 08/15/2024 Refill [facility] CH[facility] MED & PEDS [address] [place] [address] Livia Ramesh MD Type 2 diabetes mellitus without complication, without long-term current use of insulin ([facility]) from Last 3 Months Immunizations Name Administration [...] Sign Reading Time Taken Comments Blood Pressure 126/67 09/06/2024 9:26 AM EST Pulse 70 09/06/2024 9:26 AM EST Temperature 36.9 ??C (98.4 ??F) 09/06/2024 9:26 AM ES T Respiratory Rate 18 09/06/2024 9:26 AM EST Oxygen Saturation 98% 09/06/2024 9:26 AM EST Inhaled Oxygen Concentration - - Weight 95.5 kg (210 lb 9.6 oz) 09/06/2024 9:26 A M EST Height 170.2 cm (5' 7 ) 09/06/2024 9:26 AM EST Body Mass Index 32.98 09/06/2024 9:26 AM EST Plan of Treatment Upcoming Encounters Date Type Department Care Team (Late st Contact Info) Description 12/04/2024 9:00 AM EDT Office Visit [facility] CHC MED & PEDS [address] [place] [address] Livia Ramesh MD 505 [place] [address] Health Maintenance Due Date Last Done Comments [...] 08/18/2024 08/18/2023, 08/18/2023, 08/18/2023, Additional history exists Influenza Vaccine (#1) 2025 , 06/15/2019, 05/23/2017, Additional history exists Postponed from 03/25/2024 (Patient Refused) Diabetes: Urine Protein Screening 02/05/2025 02/06/2024 Diabetes: Hemoglobin A1C 03/06/2025 025, 05/11/2024, 04/16/2024, Additional history exists COVID-19 Vaccine ( season) 2025 09/02/2023, 07/15/2022, 08/05/2021, Additional history exists Postponed from 03/25/2024 (Patient Refused) Colonoscopy 05/31/2025 05/31/2022 Colorectal Cancer Screening 05/31/2025 Lung Cancer Screening 06/18/2025 06/18/2024 Tobacco Screening 09/06/2025 09/06/2024 DTaP/Tdap/Td Vaccines (3 - Td or Tdap) 01/29/2034 01/30/2024, 05/22/2015 Pneumococcal Vaccine: 50+ Years Completed 02/06/2024 HIB Vaccines Aged Out No [...] Procedure Name Priority Date/Time Associated Diagnosis Comments POCT GLUCOSE Routine 09/06/2024 9:27 AM EST Type 2 diabetes mellitus without complication, without long-term current use of insulin ([facility]) POCT GLYCATED HEMOGLOBIN, TOTAL Routine 09/06/2024 9:27 AM EST Type 2 diabetes mellitus without complication, without long-term current use of insulin ([facility]) LDCT LUNG SCREENING Routine 06/18/2024 Tobacco dependence syndrome ALBUMIN, RANDOM URINE W/CREATININE Routine 02/06/2024 10:30 AM EDT Type 2 diabetes mellitus without complication, without long-term current use of insulin ([facility]) HM COLONOSCOPY Routine 05/31/2022 ZZZ HISTORICAL LIPID PANEL Routine 11/26/2020 8:33 AM EDT from Last 3 Months or Most Recently Relevant to Health Maintenance Results * POCT A1C (09/06/2024 9:27 AM EST) Hemoglobin A1C 5.9 4.0 - 6.0 % QC Media Lot # Comment:[id number] Lot# Expiration Date Comment:05/11/2026 Blood 09/06/2024 9:27 AM EST us Livia Ramesh MD POINT OF CARE TEST ENTER/ED IT ORDERABLES Final Result * POCT glucose manually resulted (09/06/2024 9:27 AM EST) Glucose Blood, POC 157 60 - 200 mg/dL QC Media Lot # Comment:[id number] Lot# Expiration Date Comment:10/30/2024 Blood Capillary blood specimen / Unknown 09/06/2024 9:27 AM EST us Livia Ramesh MD POINT OF CARE TEST ENTER/ED IT ORDERABLES Final Result * CT Lung Screening Low dose (06/18/2024) Anatomical Region Laterality Modality Lung Computed Tomogra phy us Livia Ramesh MD IMG CT PROCEDURES Final Res ult * Albumin, Random Urine W/Creatinine (02/06/2024 10:30 AM EDT) Creatinine, Urine 110.20 mg/dL [facility] Microalbumin Urine <5.0 mg/L [facility] Microalbum Creatinine Ratio Ur TNP <30 ug/mg cr [facility] Comment:Unable to calculate albumin/creatinine ratio due to lowmicroalbumin or creatinine result. Urine (Urine, Random) 02/06/2024 10:30 AM EDT 02/06/2024 9:48 PM EDT us Livia Ramesh MD LAB URINE ORDERABLES Final Result [facility] [address] [place] [phone] * Hm Colonoscopy (05/31/2022) Colonoscopy Normal Normal Narrative Maya Gary - 05/31/2022 Recommended 3 year follow up us Historical Provider HEALTH MAINTENANCE Final Result * [...] liver disease. LDL Cholesterol Calculated 48 mg/dl [facility] Comment: Desirable LDL: ? less than 100 mg/dL Near Optimal/Above Optimal LDL: ??110-129 mg/dL Borderline High LDL: ? 130-159 mg/dL High LDL: ?160-189 mg/dL Very High LDL: ? greater than or equal to ?190 mg/dL Triglycerides 34 mg/dL [facility] Comment: Desirable Triglyceride: ? less than 150 mg/dL Borderline High Triglyceride ??150-199 mg/dL High Triglyceride: ?200-499 mg/dL Very High Triglyceride: ? greater than or equal to ? 5OO mg/dL 11/26/2020 8:33 AM EDT us Historical Provider HISTORICAL/NON ORDERABLE LABS Final Result [facility] [address] from Last 3 Months or Most Recently Relevant to Health Maintenance Insurance [facility] Care Teams Manager Service Desk Relationship Specialty Start Date End Date Livia Ramesh MD [address] [place], [place] [address] [place] [address] PCP - General Internal Medicine 07/25/18 Home [facility] 08/21/18
--- OUTSIDE RECORDS SUMMARY | 2024-11-12 11:01 | XMS_ITS | Encounter Summary ---
Author Organization [employer] Address 75 [facility] 7 [place] [address] Care Team Providers Care Group Marketing Vp Name Role Phone Livia Ramesh MD Primary Care Provider [phone]- [phone] Reason for Visit * Reason Onset Date Comments CT CHEST ORDER 11/09/2024 Encounter Details Date Type Department Care Team (Late st Contact Info) Description 11/09/2024 Telephone [employer] [facility] [address] [place] [address] Livia Ramesh MD [address] [place], [place] [phone] CT CHEST ORDER Social History Tobacco Use Types Packs/Day Years [...] encounter Miscellaneous Notes * Telephone Encounter - Rosa Maria Lozano - 11/09/2024 11:49 AM EDT Tc from [facility] with [facility] [...] CT of Chest without Contrast to frederic. PT has appointment on Sunday 11/12 will need order before, so appointment wont get cancel. Thank you documented in this encounter Plan of Treatment Upcoming Encounters Date Type Department Care Team (Late st Contact Info) Description 12/04/2024 9:00 AM EDT Office Visit [facility] MED & PEDS [address] [place] [address] Livia Ramesh MD [address] [place] [address] documented as of this encounter Visit Diagnoses Not on filedocumented in this encounter Additional Health Concerns Assessment Noted Time PHQ-9 Depression Total Score: 1 05/18/20 23 9:54 AM EDT documented as of this encounter Care Teams Group Marketing Vp Relationship Specialty Start Date End Date iLvia Ramesh MD [address] [place] [address] PCP - General Internal Medicine 07/25/18 Home [facility] 08/21/18 documented as of this encounter
--- OUTSIDE RECORDS SUMMARY | 2024-11-12 11:01 | XMS_ITS | Encounter Summary ---
Author Organization [employer] Address 75 [facility] 7 [place] [address] Care Team Providers Care Manager Mission Name Role Phone Livia Ramesh MD Primary Care Provider [phone] Reason for Referral * Imaging (Routine) - Authorized Specialty Diagnoses / Procedures Referred By Contac t Referred To Contact Radiology Diagnoses Tobacco dependence syndrome Pulmonary nodule, right Procedures CT Chest w/o Contrast Livia Ramesh MD [address] [place] [address] Phone: tel: fax: [facility] [address] [place] [address], [place] [address] Phone: tel: fax: Referral ID Status Reason Start Date Expiration Date V isits Requested Visits Authorized [id number] Authorized 11/09/2024 11/09/2025 1 1 * Imaging (Routine) - Authorized Specialty Diagnoses / Procedures Referred By Contac t Referred To Contact Radiology Diagnoses Tobacco dependence syndrome Pulmonary nodule, right Procedures CT Lung Screening Low dose Livia Ramesh MD [address] [place] [address] Phone: tel: fax: [facility] [address] [place] [address], [address] [address] Phone: tel: fax: Referral ID Status Reason Start Date Expiration Date V isits Requested Visits Authorized [id number] Authorized 10/26/2024 10/26/2025 1 1 Encounter Details Date Type Department Care Team (Late st Contact Info) Description 10/26/2024 Orders Only [facility] MED & PEDS [address] [place] [address] Livia Ramesh MD [address] [place] [address] Tobacco dependence syndrome (Primary Dx); Pulmonary nodule, right Social History Tobacco Use Types Packs/Day Years [...] Description 12/04/2024 9:00 AM EDT Office Visit [facility] MED & PEDS [address] [place] [address] Livia Ramesh MD [address] [place] [address] Scheduled Orders Name Type Priority Associated Diagnoses Orde r Schedule CT Lung Screening Low dose Imaging Routine Tobacco dependence syndrome Pulmonary nodule, right Expected: 10/26/2024, Expires: 10/26/2025 CT Chest w/o Contrast Imaging Routine Tobacco dependence syndrome Pulmonary nodule, right Expected: 11/09/2024, Expires: 11/09/2025 documented as of this encounter Visit Diagnoses Diagnosis Tobacco dependence syndrome- Primary Tobacco use disorder Pulmonary nodule, right Other diseases of lung, not elsewhere classified documented in this encounter Additional Health Concerns Assessment Noted Time PHQ-9 Depression Total Score: 1 05/18/20 23 9:54 AM EDT documented as of this encounter Care Teams Manager Mission Relationship Specialty Start Date End Date Livia Ramesh MD [address] [place] [address] PCP - General Internal Medicine 07/25/18 [facility] 08/21/18 documented as of this encounter
--- OUTSIDE RECORDS SUMMARY | 2024-11-12 11:01 | XMS_ITS | Encounter Summary ---
Author Organization [employer] Address 75 [facility] 7t [place] [address] Care Team Providers Care Audio Installer Name Role Phone Livia Ramesh MD Primary Care Provider +1- [phone] Reason for Visit * Reason Onset Date Comments Prior Authorization 09/21/2024 Encounter Details Date Type Department Care Team ([facility] st Contact Info) Description 09/21/2024 Telephone [facility] MEDICINE [address] [place] [address] Livia Ramesh MD [address] [place], [place] [phone] Prior Authorization Social History Tobacco Use Types [...] encounter Miscellaneous Notes * Telephone Encounter - Aayush Dillon - 09/21/2024 3:46 PM EST TC from pt . Guanako Menon required for Tirzepatide-Weight Management (Zepbound) 2.5 MG/0.5ML solution auto-injector documented in this encounter Plan of Treatment Upcoming Encounters Date Type Department Care Team (Late st Contact Info) Description 12/04/2024 9:00 AM EDT Office Visit [facility] MED & PEDS 505 [place] [address] Livia Ramesh MD 505 [place] [address] documented as of this encounter Visit Diagnoses Not on filedocumented in this encounter Additional Health Concerns Assessment Noted Time PHQ-9 Depression Total Score: 1 05/18/20 23 9:54 AM EDT documented as of this encounter Care Teams Audio Installer Relationship Specialty Start Date End Date Livia Ramesh MD 505 [place] [address] PCP - General Internal Medicine 07/25/18 [facility] 08/21/18 documented as of this encounter
== END 2024-11-12 10:58 | disposition home or self-care (01) ==
LOC: HO.XRAY 10:57
PROVIDERS: PCP Internal Medicine; Visit Provider Internal Medicine
DX: M25.511 Pain in right shoulder (principal); G89.29 Other chronic pain
CPT/HCPCS: 73030

== ENCOUNTER → 2024-11-12 11:01 | Outpatient (BNV) | payer OTHER, SELFPAY | PROVIDERS: PCP Internal Medicine; Visit Provider Radiology Diagnostic Radiology | DX: M19.011 Primary osteoarthritis, right shoulder (principal) | CPT/HCPCS: 73030 ==

== ENCOUNTER 2024-11-26 07:45 | Outpatient (REF) | payer OTHER, SELFPAY ==
--- OUTSIDE RECORDS SUMMARY | 2024-11-26 07:48 | XMS_ITS | Encounter Summary ---
Author Organization [employer] Address [address] [facility] [address] 7t [place] [address] Care Team Providers Care Telecommunications Clerk Name Role Phone Livia Ramesh MD Primary Care Provider +1- [phone] Encounter Details Date Type Department Care Team (Late st Contact Info) Description 05/27/2023 Abstract [facility] MEDICINE [address] [place] [address] Livia Ramesh MD [address] [place], [place] [phone] Social History Tobacco Use Types Packs/Day Years [...] AM EDT Office Visit [facility] MED & PEDS 505 [place], [place] [phone] Livia Ramesh MD 505 [place] [address] documented as of this encounter Procedures Procedure [...] documented as of this encounter Care Teams Telecommunications Clerk Relationship Specialty Start Date End Date Livia Ramesh MD 505 [place], [place] [phone] PCP - General Internal Medicine 07/25/18 [facility] 08/21/18 documented as of this encounter
--- OUTSIDE RECORDS SUMMARY | 2024-11-26 07:48 | XMS_ITS | Clinical Summary ---
Author Organization [employer] Address [address] [facility] [address] 7t [place] [address] Care Team Providers Care Foxing Painter Name Role Phone Livia Ramesh MD Primary Care Provider +1- [phone] Allergies No known active allergies Medications * [...] g 3 06/04/20 24 Active glucose blood (Motivanouch Ultra) test strip USE DIRECTED TWICE DAILY [...] 09/06/19 25 Active Blood Glucose Monitoring Suppl (Signal PatternsStyle Mccloud Lite) w/Device kitIndications:Ty pe 2 diabetes mellitus without complication, without long-term current use of insulin ([facility]) Use to test blood sugar 1 times [...] organization. Date Type Department Care Team Description 11/23/2024 Telephone [facility] MED & PEDS 505 [place] [address] Livia Ramesh MD TC/ Joint injection 11/21/2024 Telephone [facility] MED & PEDS [address] [place] [address] Livia Ramesh MD Results (Livia Ramesh MD [facility] Nurses/Please call. The x-ray shows severe degenerative changes of the shoulder. Mr. Baljeet Goins would benefit from a steroid injection to control his pain if his pain is severe. He is to inform us so that we can schedule him./) 11/09/2024 Telephone [facility] [address] [place] [address] CHEST ORDER 11/09/[address] [address] Livia Ramesh MD Referral 11/07/2024 Telephone [facility] MED & PEDS [address] [place] [address] Livia Ramesh MD Results 10/26/2024 Orders Only [facility] MED & PEDS [address] [place] [address] Livia Ramesh MD Tobacco dependence syndrome (Primary Dx); Pulmonary nodule, right 10/26/2024 Refill [facility] MED & PEDS [address] [place] [address] Livia Ramesh MD 10/23/[address] [address] Livia Ramesh MD Medication Question 10/08/2024 Orders Only [facility] MEDICINE [address] [place] [address] Livia Ramesh MD Obesity (BMI 30-39.9) (Primary Dx) 10/08/[address] [address] Livia Ramesh MD Medication Question 10/01/2024 Telephone [facility] MED [facility] PEDS [address] [place] [address] Livia Ramesh MD Prior Authorization 09/21/2024 [address] [place] [address] Livia Ramesh MD Prior Authorization 09/21/2024 Refill [facility] MED[facility] [address] [place] [address] Livia Ramesh MD Primary hypertension 09/06/2024 9:30 AM EST Office Visit [facility] MED & PEDS [address] [place] [address] Livia Ramesh MD Obesity (BMI 30-39.9) (Primary Dx); Type 2 diabetes mellitus without complication, without long-term current use of insulin (CMS/HCC); COPD mixed type (CMS/HCC); Primary osteoarthritis of other site; Diabetic polyneuropathy associated with type 2 diabetes mellitus (CMS/HCC); Pain of toes of both feet 09/06/2024 Travel 08/31/2024 Telephone [facility] MED[facility]INE [address] [place] [address] Livia Ramesh MD Medication Question from Last 3 Months Immunizations Name Administration [...] Description 12/04/2024 9:00 AM EDT Office Visit [facility] MED & PEDS 505 [place], [place] [phone] Livia Ramesh MD 505 [place] [address] Health Maintenance Due Date Last Done Comments [...] Protein Screening 02/05/2025 02/06/2024 Diabetes: Hemoglobin A1C 03/06/202509/06/2 025, 05/11/2024, 04/16/2024, Additional history exists COVID-19 [...] Procedure Name Priority Date/Time Associated Diagnosis Comments XR SHOULDER 2+ VIEWS RIGHT Routine 11/13/2024 7:15 PM EDT Chronic right shoulder pain CT CHEST WO CONTRAST Routine 11/12/2024 Tobacco dependence syndrome Pulmonary nodule, right POCT GLUCOSE Routine 09/06/2024 9:27 AM EST Type 2 diabetes mellitus without complication, without long-term current use of insulin ([facility]) POCT GLYCATED HEMOGLOBIN, TOTAL Routine 09/06/2024 9:27 AM EST Type 2 diabetes mellitus without complication, without long-term current use of insulin ([facility]) LDCT LUNG SCREENING Routine 06/18/2024 Tobacco dependence syndrome ALBUMIN, RANDOM URINE W/CREATININE Routine 02/06/2024 10:30 AM EDT Type 2 diabetes mellitus without complication, without long-term current use of insulin ([facility]) HM COLONOSCOPY Routine 05/31/2022 ZZZ HISTORICAL LIPID PANEL Routine 11/26/2020 8:33 AM EDT from Last 3 Months or Most Recently Relevant to Health Maintenance Results * XR Shoulder 2+ Views Right (11/13/2024 7:15 PM EDT) Anatomical Region Laterality Modality Upper Extremities, Shoulder Right Radi ographic Imaging 11/13/2024 7:15 PM EDT Narrative 11/13/2024 7:16 PM EDT ? [facility] ?[address] ?[place] [address] ?XRay Report ? Signed ? Patient: Coronel,Baljeet ?MR#: [id number] ?? 833 ? : 1965 ?Acct:[id number] ? Age/Sex: 59 / M ?ADM Date: 11/12/24 ? Loc: HO.XRAY ? Attending Dr: Livia Ramesh MD ? Ordering Physician: Livia Ramesh MD ?? Date of Service: 11/12/24 ?? Procedure(s): XR shoulder RT min 2V ?? Accession Number(s): [id number] ? cc: Livia Ramesh MD ? CLINICAL HISTORY: right shoulder pain ? Right shoulder five views ? Comparison: None ? Findings: ? No acute fracture or dislocation identified. ?? Severe degenerative change glenohumeral joint. ?? No radiopaque foreign body noted. ? Impression: ? Severe degenerative change ? No acute bony abnormality ? This document has been electronically signed by: Ronny Bowers MD on ?? 11/13/2024 19:15:40 ? Dictated By: ?Ronny Bowres MD ? Signed By: ?<Electronically signed by Ronny Bowers MD in OV> ? 04/22/25 1916 ? DD/ 14 ? TD/TT: 11/13/241914 ? Cabin Outfitter: ? Procedure Note Yeison, Image - 11/13/2024 [place] [address] XRay Report Signed Patient: Ila Coronel#: [id number] 833 : 1965Acct:[id number] Age/Sex: 59 / MADM Date: 11/12/24 Loc: HO.GIOVANNY Attending Dr: Livia Ramesh MD Ordering Physician: Livia Ramesh MD Date of Service: 11/12/24 Procedure(s): XR shoulder RT min 2V Accession Number(s): [id number] cc: Livia Ramesh MD CLINICAL HISTORY: right shoulder pain Right shoulder five views Comparison: None Findings: No acute fracture or dislocation identified. Severe degenerative change glenohumeral joint. No radiopaque foreign body noted. Impression: Severe degenerative change No acute bony abnormality This document has been electronically signed by: Ronny Bowers MD on 11/13/2024 19:15:40 Dictated By: Ronny Bowers MD Signed By: <Electronically signed by Ronny Bowers MD in OV> 11/13/241915 DD/ 14 TD/TT: 11/13/241914 Cabin Outfitter: us Livia Ramesh MD IMG XR PROCEDURES Final Res ult * CT Chest w/o Contrast (11/12/2024) Anatomical Region Laterality Modality Body, Chest Computed Tomogra phy us Livia Ramesh MD IMG CT PROCEDURES Final Res ult * POCT A1C (09/06/2024 9:27 AM EST) Hemoglobin A1C 5.9 4.0 - 6.0 % QC Media Lot # Comment:[id number] Lot# Expiration Date Comment:05/11/2026 Blood 09/06/2024 9:27 AM EST us Livia Ramesh MD POINT OF CARE TEST ENTER/ED IT ORDERABLES Final Result * POCT glucose manually resulted (09/06/2024 9:27 AM EST) Glucose Blood, POC 157 60 - 200 mg/dL QC Media Lot # Comment:[id number] Lot# Expiration Date Comment:10/30/2024 Blood Capillary blood specimen / Unknown 09/06/2024 9:27 AM EST Livia Ramesh MD POINT OF CARE TEST ENTER/ED IT ORDERABLES Final Result * CT Lung Screening Low dose (06/18/2024) Anatomical Region Laterality Modality Lung Computed Tomogra phy us Livia Ramesh MD IMG CT PROCEDURES Final Res ult * Albumin, Random Urine W/Creatinine (02/06/2024 10:30 AM EDT) Creatinine, Urine 110.20 mg/dL [facility] Microalbumin Urine <5.0 mg/L [facility] Microalbum Creatinine Ratio Ur TNP <30 ug/mg cr [facility] Comment:Unable to calculate albumin/creatinine ratio due to lowmicroalbumin or creatinine result. Urine (Urine, Random) 02/06/2024 10:30 AM EDT 02/06/2024 9:48 PM EDT us Livia Ramesh MD LAB URINE ORDERABLES Final Result [facility] [address] [place] [phone] * Hm Colonoscopy (05/31/2022) Colonoscopy Normal Normal Narrative Maya Gary - 05/31/2022 Recommended 3 year follow up us Historical Provider HEALTH MAINTENANCE Final Result * LIPID PANEL (11/26/2020 8:33 AM EDT) Cholesterol 90 mg/dL [facility] Comment: Desirable Cholesterol: ?less than 200 mg/dL Borderline High Cholesterol: ??200-239 mg/dL High Cholesterol: ? greater than 239 mg/dL HDL Cholesterol 36 mg/dL [facility] Comment: Desirable HDL: ??greater than 40 mg/dL ?? Note: This HDL assay may give artificially ? low results in patients with liver disease. LDL Cholesterol Calculated 48 mg/dl [facility] Comment: Desirable LDL: ? less than 100 mg/dL Near Optimal/Above Optimal LDL: ??110-129 mg/dL Borderline High LDL: ? 130-159 mg/dL High LDL: ?160-189 mg/dL Very High LDL: ? greater than or equal to ?190 mg/dL Triglycerides 34 mg/dL [facility] Comment: Desirable Triglyceride: ? less than 150 mg/dL Borderline High Triglyceride ??150-199 mg/dL High Triglyceride: ?200-499 mg/dL Very High Triglyceride: ? greater than or equal to ? 5OO mg/dL 11/26/2020 8:33 AM EDT us Historical Provider MD HISTORICAL/NON ORDERABLE LABS Final Result [facility] [address] from Last 3 Months or Most Recently Relevant to Health Maintenance Insurance [facility] < [address] [place] [id number] Care Teams Foxing Painter Relationship Specialty Start Date End Date Livia Ramesh MD [address] [place] [address] [place] [address] PCP - General Internal Medicine 07/25/18 [facility] 08/21/18
--- OUTSIDE RECORDS SUMMARY | 2024-11-26 07:48 | XMS_ITS | Encounter Summary ---
Author Organization [employer] Address 75 [facility] 7t [place] [address] Care Team Providers Care Helpdesk Manager Name Role Phone Livia Raemsh MD Primary Care Provider +1- [phone] Reason for Visit * Reason Comments Med Refill Encounter Details Date Type Department Care Team ([facility] st Contact Info) Description 08/15/2024 Refill [facility] MED & PEDS [address] [place], [place] [phone] Livia Ramesh MD [address] [place], [place] [phone] Type 2 diabetes mellitus without complication, without long-term current use of insulin ([facility]) Social History Tobacco Use Types Packs/Day Years [...] Upcoming Encounters Date Type Department Care Team ([facility] st Contact Info) Description 12/04/2024 9:00 AM EDT Office Visit [facility] MED & PEDS [address] [place] [address] Livia Ramesh MD [address] [place] [address] documented as of this encounter Visit Diagnoses Diagnosis Type 2 diabetes mellitus without complication, without long-term current use of insulin ([facility]) documented in this encounter Additional Health Concerns Assessment Noted Time PHQ-9 Depression Total Score: 1 05/18/20 23 9:54 AM EDT documented as of this encounter Care Teams Helpdesk Manager Relationship Specialty Start Date End Date Livia Ramesh MD [address] [place] [address] PCP - General Internal Medicine 07/25/18 Home [facility] 08/21/18 documented as of this encounter
--- OUTSIDE RECORDS SUMMARY | 2024-11-26 07:48 | XMS_ITS | Encounter Summary ---
Author Organization [employer] Address 75 [facility] 7 [place] [address] Care Team Providers Care Motor Vehicle Technician Name Role Phone Livia Ramesh MD Primary Care Provider +1- [phone] Reason for Visit * Reason Onset Date Comments TC/ Joint injection 11/23/2024 Encounter Details Date Type Department Care Team ([facility] st Contact Info) Description 11/23/2024 Telephone [facility] CHC MED & PEDS [address] [place] [address] Livia Ramesh MD [address] [place] [address] TC/ Joint injection Social History Tobacco Use Types Packs/Day Years [...] encounter Miscellaneous Notes * Telephone Encounter - Vicki Tovar [place] - 11/23/2024 2:11 PM EDT Outgoing call placed. LM-V; to schedule a joint injection with Dr. Bello. PAR's please book an appt on December 06, [address] Bello for shoulder injection. documented in this encounter Plan of Treatment Upcoming Encounters Date Type Department Care Team (Late st Contact Info) Description 12/04/2024 9:00 AM EDT Office Visit [facility] CH[facility] MED & PEDS [address] [place] [address] Livia Ramesh MD [address] [place] [address] documented as of this encounter Visit Diagnoses Not on filedocumented in this encounter Additional Health Concerns Assessment Noted Time PHQ-9 Depression Total Score: 1 05/18/20 23 9:54 AM EDT documented as of this encounter Care Teams Motor Vehicle Technician Relationship Specialty Start Date End Date Livia Ramesh MD [address] [place] [address] PCP - General Internal Medicine 07/25/18 Home [facility] 08/21/18 documented as of this encounter
--- OUTSIDE RECORDS SUMMARY | 2024-11-26 07:48 | XMS_ITS | Encounter Summary ---
Author Organization [facility] Address [address] [place] [address], [place] [address] Care Team Providers Care Gettering Operator Name Role Phone Livia Ramesh MD Primary Care Provider +1- [phone] Encounter Details Date Type Department Care Team (Late st Contact Info) Description 03/22/2023 Orders Only [facility] MED & PEDS [address] [place] [address] Katelyn Mckenzie LPN Social History Tobacco Use [...] Description 12/04/2024 9:00 AM EDT Office Visit [facility] CHC MED & PEDS [address] [place] [address] Livia Ramesh MD 505 [place] [address] documented as of this encounter Visit Diagnoses Not on filedocumented in this encounter Care Teams Gettering Operator Relationship Specialty Start Date End Date Livia Ramesh MD [address] [place] [address] PCP - General Internal Medicine 07/25/18 Home [facility] 08/21/18 documented as of this encounter
--- OUTSIDE RECORDS SUMMARY | 2024-11-26 07:48 | XMS_ITS | Encounter Summary ---
Author Organization [employer] Address [address] [facility] [address] 7t [place] [address] Care Team Providers Care Senior Engineering Team Leader Name Role Phone Livia Ramesh MD Primary Care Provider +1- [phone] Encounter Details Date Type Department Care Team (Late st Contact Info) Description 05/28/2024 Orders Only [facility] CHC MED & PEDS [address] [place], [place] [phone] ProviderKirti MD Social History Tobacco Use Types [...] 9:00 AM EDT Office Visit [facility] CHC MED & PEDS [address] [place] [address] Livia Ramesh MD [address] [place] [address] documented as of this encounter Procedures Procedure [...] EST Narrative 08/06/2024 2:43 PM EST ? [facility] ?[address] ?[place] [address] ? Magnetic Resonance Report ? Signed ? Patient: Coronel,Baljeet ?MR#: [id number] ?? 833 ? : 1965 ?Acct:[id number] ? Age/Sex: 59 / M ?ADM Date: 11/23/24 ? Loc: HO.MRI ? Attending Dr: Grey Tinajero MD ? Ordering Physician: Grey Tinajero MD ?? Date of Service: 06/16/24 ?? Procedure(s): MR head/brain wo/w con ?? Accession Number(s): [id number] ? cc: Livia Ramesh MD; Grey Tinajero [...] DD/ 1309 ? TD/TT: 06/16/24 1430 ? Mdm Sr: ? Procedure Note Donotuseinterpreter, Image - 08/06/[address] [address] Magnetic Resonance Report Signed Patient: Ila Coronel#: [id number] 833 : 1965Acct:[id number] Age/Sex: 59 / MADM Date: 06/16/24 Loc: HO.MRI Attending Dr: Grey Tinajero MD Ordering Physician: Grey Tinajero MD Date of Service: 06/16/24 Procedure(s): MR head/brain wo/w con Accession Number(s): [id number] cc: Livia Ramesh MD; Grey Tinajero MD [...] by: Mendez Lara MD 08/06/2024 02:40 PM [facility] Dictated By: MENDEZ LARA MD Signed By: <Electronically signed by MENDEZ LARA MD in OV> 08/06/24 1440 DD/ 1309 TD/TT: 06/16/24 1430 Mdm Sr: [facility] External Provider IMG MRI PROCEDURES Final [...] documented as of this encounter Care Teams Senior Engineering Team Leader Relationship Specialty Start Date End Date Livia Ramesh MD [address] [place] [address] PCP - General Internal Medicine 07/25/18 Home [facility] 08/21/18 documented as of this encounter
--- OUTSIDE RECORDS SUMMARY | 2024-11-26 07:48 | XMS_ITS | Encounter Summary ---
Author Organization [employer] Address [address] [facility] [address] 7t [place] [address] Care Team Providers Care Heat Treater Helper Name Role Phone Livia Ramesh MD Primary Care Provider +1- [phone] Encounter Details Date Type Department Care Team (Late st Contact Info) Description 10/08/2024 Orders Only [facility] MEDICINE [address] [place] [address] Livia Ramesh MD [address] [place], [place] [phone] Obesity (BMI 30-39.9) (Primary Dx) Social History [...] Upcoming Encounters Date Type Department Care Team ([facility] st Contact Info) Description 12/04/2024 9:00 AM EDT Office Visit [facility] MED & PEDS [address] [place] [address] Livia Ramesh MD [address] [place] [address] documented as of this encounter Visit Diagnoses Diagnosis Obesity (BMI 30-39.9)- Primary documented in this encounter Additional Health Concerns Assessment Noted Time PHQ-9 Depression Total Score: 1 05/18/20 23 9:54 AM EDT documented as of this encounter Care Teams Heat Treater Helper Relationship Specialty Start Date End Date Livia Ramesh MD [address] [place] [address] PCP - General Internal Medicine 07/25/18 Home Care [facility] 08/21/18 documented as of this encounter
--- OUTSIDE RECORDS SUMMARY | 2024-11-26 07:48 | XMS_ITS | Encounter Summary ---
Author Organization [employer] Address 75 [facility] 7 [place] [address] Care Team Providers Care Mash Filter Operator Name Role Phone Livia Ramesh MD Primary Care Provider +1- [phone] Reason for Visit * Reason Onset Date Comments Appointment Request 03/07/2023 Encounter Details Date Type Department Care Team (Late st Contact Info) Description 03/07/2023 Telephone [facility] MED & PEDS [address] [place] [address] Livia Ramesh MD [address] [place] [address] Appointment Request Social History Tobacco Use Types [...] discuss with PCP. 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
--- OUTSIDE RECORDS SUMMARY | 2024-11-26 07:48 | XMS_ITS | Encounter Summary ---
Author Organization [employer] Address 75 [facility] 7t [place] [address] Care Team Providers Care Rn Postpartum Name Role Phone Livia Ramesh MD Primary Care Provider +1- [phone] Reason for Visit * Reason Onset Date Comments Prior Authorization 09/21/2024 Encounter Details Date Type Department Care Team ([facility] st Contact Info) Description 09/21/2024 Telephone [facility] MEDICINE [address] [place] [address] Livia Ramesh MD [address] [place], [place] [phone] Prior Authorization Social History Tobacco Use Types [...] Description 12/04/2024 9:00 AM EDT Office Visit [facility] CHC MED & PEDS [address] [place] [address] Livia Ramesh MD [address] [place] [address] documented as of this encounter Visit Diagnoses Not on filedocumented in this encounter Additional Health Concerns Assessment Noted Time PHQ-9 Depression Total Score: 1 05/18/20 23 9:54 AM EDT documented as of this encounter Care Teams Rn Postpartum Relationship Specialty Start Date End Date Livia Ramesh MD [address] [place] [address] PCP - General Internal Medicine 07/25/18 Home Care [facility] 08/21/18 documented as of this encounter
--- OUTSIDE RECORDS SUMMARY | 2024-11-26 07:48 | XMS_ITS | Encounter Summary ---
Author Organization [employer] Address [address] [facility] 7t [place] [address] Care Team Providers Care Pet Care Technician Name Role Phone Livia Ramesh MD Primary Care Provider [phone]- [phone] Reason for Visit * Reason Comments Med Refill Encounter Details Date Type Department Care Team ([facility] st Contact Info) Description 05/02/2024 Refill [facility] MED & PEDS [address], [place] [phone] Livia Ramesh MD [address] [place], [place] [phone] COPD mixed type (CMS/HCC) Social History Tobacco [...] Upcoming Encounters Date Type Department Care Team ([facility] st Contact Info) Description 12/04/2024 9:00 AM EDT Office Visit [facility] MED & PEDS [address] [place] [address] Livia Ramesh MD [address] [place] [address] documented as of this encounter Visit Diagnoses Diagnosis COPD mixed type (CMS/HCC) documented in this encounter Additional Health Concerns Assessment Noted Time PHQ-9 Depression Total Score: 1 05/18/20 23 9:54 AM EDT documented as of this encounter Care Teams Pet Care Technician Relationship Specialty Start Date End Date Livia Ramesh MD [address] [place] [address] PCP - General Internal Medicine 07/25/18 [facility] 08/21/18 documented as of this encounter
--- OUTSIDE RECORDS SUMMARY | 2024-11-26 07:48 | XMS_ITS | Encounter Summary ---
Author Organization [employer] [facility] Address [address] [facility] 7 [place] [address] Care Team Providers Care Senior Telecommunications Engineer Name Role Phone Livia Ramesh MD Primary Care Provider [phone]- [phone] Encounter Details Date Type Department Care Team (Late st Contact Info) Description 07/22/2022 Orders Only [facility] MED & PEDS [address] [place] [address] Lisha John RN [address] [place], [place] [phone] Social History Tobacco Use Types Packs/Day Years [...] Description 12/04/2024 9:00 AM EDT Office Visit [facility] MED & PEDS [address] [place] [address] Livia Ramesh MD [address] [place] [address] documented as of this encounter Procedures Procedure [...] And Total, MS (09/20/2022 7:23 AM EST) [facility] Signature Testosterone, Total 23(A) 250 - 1100 ng/dL [facility] Comment:For additional infor suni, please refer tohttp://education.[employer].500px/faq/XyaldGjtejxdxxpskGXSOCWQUB299(This link is being provided for informational/educational purposes only.)This test was developed and its analytical performancecharacteristics have been determined by [facility] [place], [place]. It hasnot been cleared or approved by the U.S. Food and DrugAdministration. This assay has been validated pursuantto the CLIA regulations and is used for clinicalpurposes. Testosterone, Free 4.2(A) 35.0 - 155.0 pg/mL [facility] Comment:This test was develo ped and its analytical performancecharacteristics have been determined by [facility] [place], [place]. It hasnot been cleared or approved by the U.S. Food and DrugAdministration. This assay has been validated pursuantto the CLIA regulations and is used for clinicalpurposes.THIS TEST WAS PERFORMED AT:[employer] [id number] [place] [address]JPZRVYTKENNEDY MEJIAS MD,PHD 09/20/2022 7:23 AM EST 09/20/2022 7:23 AM EST [facility] External Provider LAB BLO OD ORDERABLES Final Result [facility] [address] [place] [phone] * Sex Hormone Binding Globulin (SHBG) (09/20/2022 7:23 AM EST) Sex Hormone Binding Globulin 25 22 - 77 nmol/L [facility] Comment:THIS TEST WAS PERFOR MED AT:[employer] [address] [address]SWLTCJONG OVGEL MD 09/20/2022 7:23 AM EST 09/20/2022 7:23 AM EST [facility] External Provider LAB BLO OD ORDERABLES Final Result Performing Organization Address [facility] Phone Number [facility] [address] [place] [phone] * PSA,Total (09/20/2022 7:23 AM EST) Prostate Specific Antigen 0.14 <0.05 - 4.0 ng/mL [facility] Comment:PSA methodology: Khadar Calle i ChemiluminescentMicroparticle Immunoassay (CMIA) 09/20/2022 7:23 AM EST 09/20/2022 7:23 AM EST [facility] External Provider LAB BLO OD ORDERABLES Final Result Performing Organization Address [facility] Phone Number [facility] [address] [place] [phone] * (ABNORMAL) Hematocrit (09/20/2022 7:23 AM EST) Hematocrit 41.9(L) 42.0 - 52.0 % [facility] 09/20/2022 7:23 AM EST 09/20/2022 7:23 AM EST [facility] External Provider LAB BLO OD ORDERABLES Final Result Performing Organization Address [facility] de Phone Number [facility] [address] [place] [phone] * (ABNORMAL) Hemoglobin (09/20/2022 7:23 AM EST) Hemoglobin 13.6(L) 14.0 - 18.0 g/dl [facility] 09/20/2022 7:23 AM EST 09/20/2022 7:23 AM EST [facility] External Provider LAB BLO OD ORDERABLES Final Result Performing Organization Address [facility]/ZIP Co de Phone Number [facility] [address] [place] [address] [phone] * (ABNORMAL) Testosterone, Free (Dialysis) And Total, MS (08/19/2022 7:17 AM EST) Pathologist [facility] Testosterone, Total 37(A) 250 - 1100 ng/dL [facility] Comment:For additional infor matbrenda, please refer tohttp://education.[employer]/faq/HuxjpDcocuzggfwpcPQQPPPFSB294(This link is being provided for informational/educational purposes only.)This test was developed and its analytical performancecharacteristics have been determined by [facility] [place], [place]. It hasnot been cleared or approved by the U.S. Food and DrugAdministration. This assay has been validated pursuantto the CLIA regulations and is used for clinicalpurposes. Testosterone, Free 5.6(A) 35.0 - 155.0 pg/mL [facility] Comment:This test was develo ped and its analytical performancecharacteristics have been determined by [facility] [place], [place]. It hasnot been cleared or approved by the U.S. Food and DrugAdministration. This assay has been validated pursuantto the CLIA regulations and is used for clinicalpurposes.THIS TEST WAS PERFORMED AT:My-Apps/[employer] [id number] [place] [address]YUDTHEFKENNEDY MEJIAS MD,PHD 08/19/2022 7:17 AM EST 08/19/2022 7:17 AM EST [facility] External Provider LAB BLO OD ORDERABLES Final Result [facility] [address] [place] [address] [phone] * IGF-1, LC/MS (08/19/2022 7:17 AM EST) [facility] IGF 1, LC/MS 91 50 - 317 ng/mL [facility] Z Score (Male) -0.8 -2.0 - 2.0 SD [facility] Comment:This test was develo ped and its analytical performancecharacteristics have been determined by [facility]. It has not beencleared or approved by FDA. This assay has been validatedpursuant to the CLIA regulations and is used for clinicalpurposes.THIS TEST WAS PERFORMED AT:My-Apps/Classana [id number] [place] [address]LDZMYROB DUGGAN MD,PHD,LENO Z Score (Female) [facility] 08/19/2022 7:17 AM EST 08/19/2022 7:17 AM EST [facility] External Provider LAB BLO OD ORDERABLES Final Result [facility] [address] [place] [phone] * Prolactin, Dilution Study (08/19/2022 7:17 AM EST) [facility] Prolactin, Undiluted 6.7 2.0 - 18.0 ng/mL [facility] Prolactin, Diluted SEE NOTE 2.0 - 18.0 ng/mL [facility] Comment:Result confirmed by 1:100 dilution. No high dosehook effect detected.Prolactin dilution studies are done to determine ifthere is a high-dose hook effect (i.e. a non-linearassay response due to a very high concentration ofProlactin). This is reported to occur at Prolactinconcentrations at or above 30,000 ng/mL.This test is not recommended for identifyingmacroprolactin. The [facility], Prolactin, Total and Monomeric is therecommended test (Order code [id number]).THIS TEST WAS PERFORMED AT:[employer] [address] ([address])[place] [address]PRPPTJONG VOGEL MD 08/19/2022 7:17 AM EST 08/19/2022 7:17 AM EST [facility] External Provider LAB BLO OD ORDERABLES Final Result Performing Organization Address [facility] Co de Phone Number [facility] [address] [place] [phone] * (ABNORMAL) LH (08/19/2022 7:17 AM EST) Lutenizing Hormone 0.6(A) 1.5 - 9.3 mIU/mL [facility] Comment:THIS TEST WAS PERFOR MED AT:[employer] [place] [address] ([facility])[place] [address]DTLGFJONG VOGEL MD 08/19/2022 7:17 AM EST 08/19/2022 7:17 AM EST [facility] External Provider LAB BLO OD ORDERABLES Final Result Performing Organization Address [facility] de Phone Number [facility] [address] [place] [phone] * FSH (08/19/2022 7:17 AM EST) Follicle Stimulating Hormone 3.4 1.6 - 8.0 mIU/mL [facility] Comment:THIS TEST WAS PERFOR MED AT:[employer] [address] ([address])[place] [address]CAUJCJONG VOGEL MD 08/19/2022 7:17 AM EST 08/19/2022 7:17 AM EST [facility] External Provider LAB BLO OD ORDERABLES Final Result Performing Organization Address [facility] Co de Phone Number [facility] [address] [place] [phone] * Sex Hormone Binding Globulin (SHBG) (08/19/2022 7:17 AM EST) Sex Hormone Binding Globulin 28 22 - 77 nmol/L [facility] Comment:THIS TEST WAS PERFOR MED AT:[employer] [address] ([facility])[place] [address]RQXVIJILLIAN VOGEL MD 08/19/2022 7:17 AM EST 08/19/2022 7:17 AM EST [facility] External Provider LAB BLO OD ORDERABLES Final Result [facility] [address] [place] [address] [phone] * T3, Total (08/19/2022 7:17 AM EST) Pathologist [facility] T3, Total 99 76 - 181 ng/dL [facility] Comment:THIS TEST WAS PERFOR MED AT:[employer] [address] ([facility])[place] [address]YLLJMJONG VOGEL MD 08/19/2022 7:17 AM EST 08/19/2022 7:17 AM EST [facility] External Provider LAB BLO OD ORDERABLES Final Result Performing Organization Address City/[facility]/ZIP Co de Phone Number [facility] [address] [place] [address] [phone] * ACTH, Plasma (08/19/2022 7:17 AM EST) ACTH, Plasma 32 6 - 50 pg/mL [facility] Comment:Reference range appl ies only to specimenscollected between 7am-10amTHIS TEST WAS PERFORMED AT:[employer] [address] ([facility])[place] [address]GMDUUJILLIAN VOGEL MD 08/19/2022 7:17 AM EST 08/19/2022 7:17 AM EST [facility] External Provider LAB BLO OD ORDERABLES Final Result Performing Organization Address City/[facility]/ZIP Co de Phone Number [facility] [address] [place] [phone] * Osmolality, Serum (08/19/2022 7:17 AM EST) Osmolality (Serum) 293 281 - 305 mosm/kg [facility] 08/19/2022 7:17 AM EST 08/19/2022 7:17 AM EST [facility] External Provider LAB BLO OD ORDERABLES Final Result Performing Organization Address [facility] Co de Phone Number [facility] [address] [place] [phone] * Cortisol Random (08/19/2022 7:17 AM EST) Pathologist [facility] Cortisol Random 16.3 ug/dL [facility] Comment:Reference Range*: Be fore 10 am 6.2-19.4 ug/dL After 5 pm 2.3-11.9 ug/dL*Please interpret above results accordingly.This test was performed using the [employer] chemiluminescentmethod. Values obtained from different assay methods cannotbe used interchangeably.Patients receiving fludrocortisone, prednisolone orprednisone may show artificially elevated cortisol valuesdue to cross-reactivity. 08/19/2022 7:17 AM EST 08/19/2022 7:17 AM EST [facility] External Provider LAB BLO OD ORDERABLES Final Result Performing Organization Address [facility]/ZIP Co de Phone Number [facility] [address] [place] [phone] * TSH (08/19/2022 7:17 AM EST) Thyroid Stimulating Hormone 1.67 0.32 - 4.0 uIU/mL [facility] Comment:TSH 3rd Generation ( [facility]) 08/19/2022 7:17 AM EST 08/19/2022 7:17 AM EST [facility] External Provider LAB BLO OD ORDERABLES Final Result Performing Organization Address [facility] Co de Phone Number [facility] [address] [place] [phone] * (ABNORMAL) T4, Free (08/19/2022 7:17 AM EST) Free T4 (Free Thyroxine) 2.06(H) 0.71 - 1.85 ng/dL [facility] 08/19/2022 7:17 AM EST 08/19/2022 7:17 AM EST [facility] External Provider LAB BLO OD ORDERABLES Final Result Performing Organization Address [facility] de Phone Number [facility] [address] [place] [phone] * (ABNORMAL) Basic Metabolic Panel (08/19/2022 7:17 AM EST) Pathologist [facility] Sodium 140 135 - 145 mmol/L [facility] Potassium 4.1 3.3 - 5.1 mmol/L [facility] Chloride 103 96 - 108 mmol/L [facility] Carbon Dioxide 26 22 - 29 mmol/L [facility] Anion Gap 15 12 - 20 [facility] Urea Nitrogen (BUN) 17(H) 9 - 16 mg/dL [facility] Creatinine, Serum 0.85 0.5 - 1.4 mg/dL [facility] Estimated Glomerular Filt Rate >60 [facility] Comment:NOTE: For -Am erican individuals, multiply the result by 1.210.Chronic Kidney Disease: Estimated GFR < 60 mL/min/1.83p9Wzbnzp Kidney Disease: Estimated GFR < 15 mL/min/1.73m2 Glucose 114 60 - 115 mg/dL [facility] Calcium 9.1 8.4 - 10.2 mg/dL [facility] 08/19/2022 7:17 AM EST 08/19/2022 7:17 AM EST us [facility] External Provider LAB BLO OD ORDERABLES Final Result [facility] [address] [place] [phone] documented in this encounter Visit Diagnoses Not on filedocumented in this encounter Care Teams Senior Telecommunications Engineer Relationship Specialty Start Date End Date Livia Ramesh MD [address] [place] [phone] PCP - General Internal Medicine 07/25/18 [facility] 08/21/18 documented as of this encounter
--- OUTSIDE RECORDS SUMMARY | 2024-11-26 07:48 | XMS_ITS | Encounter Summary ---
Author Organization [employer] Address [address] [facility] [address]t [place] [address] Care Team Providers Care Day Haul [employer] Farm Charter Bus Driver Name Role Phone Livia Ramesh MD Primary Care Provider [phone] Reason for Visit * Reason Onset Date Comments Results 11/21/2024 MD Hong Ken [facility] Med & Peds NursesPlease call. The x-ray shows severe degenerative changes of the shoulder. Mr. Baljeet Goins would benefit from a steroid injection to control his pain if his pain is severe. He is to inform us so that we can schedule him. Encounter Details Date Type Department Care Team (Late st Contact Info) Description 11/21/2024 Telephone [facility] MED & PEDS [address] [place], [place] [phone] Livia Ramesh MD [address] [place], [place] [phone] Results (MD Hong Velasquez [facility] Med & Peds Nurses/Please call. The x-ray shows severe degenerative changes of the shoulder. Mr. Baljeet Goins would benefit from a steroid injection to control his pain if his pain is severe. He is to inform us so that we can schedule him./) Social History Tobacco Use Types Packs/Day Years [...] encounter Miscellaneous Notes * Telephone Encounter - Tash Harmon RN - 11/21/2024 9:22 AM EDT TC to pt with japanese interpreter services to review x-ray results per provider. Pt states still has severe pain in right shoulder and reports decreased range of motion without triggering pain. Author advised that based on his symptoms, pcp believes pt would benefit from steroid injection. Pt agreeable to having steroid injection. Author advised pt maurice be contacted to set up procedure appointment. Pt verbalized understanding and agreement with plan. documented in this encounter Plan of Treatment Upcoming Encounters Date Type Department Care Team (Late st Contact Info) Description 12/04/2024 9:00 AM EDT Office Visit [facility] MED & PEDS [address] [place] [address] Livia Ramesh MD [address] [place] [address] documented as of this encounter Visit Diagnoses Not on filedocumented in this encounter Additional Health Concerns Assessment Noted Time PHQ-9 Depression Total Score: 1 05/18/20 23 9:54 AM EDT documented as of this encounter Care Teams Day [employer] Charter Bus Driver Relationship Specialty Start Date End Date Livia Ramesh MD [address] [place] [address] PCP - General Internal Medicine 07/25/18 [facility] 08/21/18 documented as of this encounter
--- OUTSIDE RECORDS SUMMARY | 2024-11-26 07:48 | XMS_ITS | Encounter Summary ---
Author Organization [employer] Address [address] [facility] [address] [place] [address] Care Team Providers Care Dental Laboratory Assistant Name Role Phone Livia Ramesh MD Primary Care Provider [phone] Encounter Details Date Type Department Care Team ([facility] st Contact Info) Description 08/18/2023 Orders Only [facility] MED & PEDS [address] [place], [place] [phone] Livia Ramesh MD [address] [place], [place] [phone] Social History Tobacco Use Types Packs/Day Years [...] Description 12/04/2024 9:00 AM EDT Office Visit [facility] MED & PEDS [address] [place] [address] Livia Ramesh MD [address] [place] [address] documented as of this encounter Visit Diagnoses Not on filedocumented in this encounter Additional Health Concerns Assessment Noted Time PHQ-9 Depression Total Score: 1 05/18/20 23 9:54 AM EDT documented as of this encounter Care Teams Dental Laboratory Assistant Relationship Specialty Start Date End Date Livia Ramesh MD [address] [place] [address] PCP - General Internal Medicine 07/25/18 [facility] 08/21/18 documented as of this encounter
[2024-11-26 09:06] LABS: Prostate Specific Antigen 0.32 ng/mL (<0.05-4.0)
[2024-12-01 11:24] LABS: Testosterone, Free 55 pg/mL (35.0-155.0); Testosterone, Total 337 ng/dL (250-1100)
== END 2024-11-26 07:46 | disposition home or self-care (01) ==
LOC: HO.LAB 07:45
PROVIDERS: PCP Internal Medicine; Visit Provider Internal Medicine Endocrinology, Diabetes & Metabolism
DX: E23.0 Hypopituitarism (principal); Z12.5 Encounter for screening for malignant neoplasm of prostate
CPT/HCPCS: 36415; 84153; 84402; 84403; 85014; 85018

== ENCOUNTER 2025-01-04 10:00 | Outpatient (AMB) | payer OTHER, SELFPAY ==
[2025-01-04 10:02] VITALS: BMI 33.0
--- NOTE | 2025-01-04 10:02 | MHC.OFFVIS ---
Vital Signs 01/04/25 10:02 Height 5 ft 7 in Weight 211 lb BMI 33.0 Intake Visit Reasons: New Patient - Right Shoulder OA Intake Note: Baljeet is a 59 year old right hand dominant male who presents today as a New Patient with complaints of Right Shoulder Pain that began about 8 months ago. Hx of DM. Patient was referred by his PCP for Right Shoulder OA with symptoms of limited ROM, stiffness and locking. Patient states pain is primarily at the base of the right shoulder. He is currently taking pain medication but is unsure on the name. Denies surgeries or injuries to the right shoulder. Allergies No Known Allergies [No Known Allergies*] Allergy (Verified 01/04/25 10:05) HPI HPI New Patient - Right Shoulder OA: Details: 59-year-old diabetic gentleman comes in with right shoulder pain. 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 He has difficulty sleeping and pain with overhead reaching. He has not been treated for this. He is diabetic. HPI Comments Details: Baljeet is a 59 year old right hand dominant male who presents today as a New Patient with complaints of Right Shoulder Pain that began about 8 months ago. Hx of DM. Patient was referred by his PCP for Right Shoulder OA with symptoms of limited ROM, stiffness and locking. Patient states pain is primarily at the base of the right shoulder. He is currently taking pain medication but is unsure on the name. Denies surgeries or injuries to the right shoulder. [facility] Medical History Osteopenia Goiter Pituitary microadenoma Hypogonadotropic hypogonadism Hypogonadism in male Vitamin D deficiency Hypogonadism Thrombocytopenia Osteoarthritis Myalgia Sleep apnea Colon polyps Hepatitis C VICTORIA (obstructive sleep apnea) COPD (chronic obstructive pulmonary disease) Surgical History Hx of carpal tunnel repair Family History Maternal Aunt Cancer Father Diabetes Paternal Aunt Diabetes Paternal Aunt Diabetes Social History (Updated 01/04/25 @ 10:05 by MARGARITA Jesus) Alcohol intake: former Patient Tobacco Use Status: Current everyday Tobacco user Cigarette Packs Per Day: 10 Years Smoked: 45 Substance Use Type: Prescription Drugs Current occupational status: unemployed Current occupation: rt handed Physical Exam Vital Signs: BMI result Body Mass Index 33.0 Extrem Other: On exam external rotation is limited to 30 degrees on the right compared to 40 on the left. He has painful passive abduction to 90 and a positive Aecvedo and Neer. Difficult to assess empty can given pain but grossly intact. Office Procedures Joint Inj/Aspir; Non-Pain Clin Joint Injection/Drain Details: Injected 1 mL of Decadron and 3 mL 1% lidocaine and 3 mL of 0.25% Marcaine. Site was prepped using aseptic technique. Patient tolerated the procedure well. Shoulders, Hips, Knees, Shoulder Injection Large joint : Right Shoulder Coding Procedure code (CPT) selection complete Results Reviewed Results Reviewed: I personally reviewed relevant radiographs. Moderate to severe glenohumeral osteoarthritis Assessment & Plan Assessment & Plan (1) Primary osteoarthritis, right shoulder: Code(s): M19.011 - Primary osteoarthritis, right shoulder Category: Medical Plan: Right shoulder OA. He has not been treated. He did not want to get steroid injections in the past because he states they affected his mood but he was thinking they were oral tablets. I do recommend a shoulder injection and that he modify his overhead activities. He does not want to do physical therapy. I injected his right shoulder and he can follow up as needed. I informed him of the hyperglycemic effects of steroids. (2) Diabetes: Code(s): E11.9 - Type 2 diabetes mellitus without complications Category: Medical Plan: I informed him of the hyperglycemic effects of steroids. Coding Level of Care Code New Pt Level 3 (31136) Diagnoses Primary osteoarthritis, right shoulder M19.011 Diabetes E11.9 CPT Codes Shoulders, Hips, Knees, - Shoulder Injection Large joint [id number]: Right Shoulder ([id number])
--- OUTSIDE RECORDS SUMMARY | 2025-01-04 10:44 | XMS_ITS | Encounter Summary ---
Author Organization [employer] [facility] Address [address] [place] [address] [address] [place] [address] Care Team Providers Care Production Repairer Name Role Phone Livia Ramesh MD Primary Care Provider Encounter Details Date Type Department Care Team (Late st Contact Info) Description 07/22/2022 Orders Only [facility] [address] [place] [address] Lisha John RN [address] [place], [place] [phone] Social History Tobacco Use Types Packs/Day Years [...] Care Team (Late st Contact Info) Description 03/07/2025 9:15 AM EDT Office Visit [facility] [address] [place] [address] Livia Ramesh MD [address] [place] [address] documented as of this encounter Procedures Procedure [...] And Total, MS (09/20/2022 7:23 AM EST) [facility] Signature Testosterone, Total 23(A) 250 - 1100 ng/dL [facility] Comment:For additional infor suni, please refer tohttp://education.RealityMine.mobiliThink/faq/FgfdzXdfwhbgmfdxtJWUTTNQFE173(This link is being provided for informational/educational purposes only.)This test was developed and its analytical performancecharacteristics have been determined by [facility] [place]. It hasnot been cleared or approved by the U.S. Food and DrugAdministration. This assay has been validated pursuantto the CLIA regulations and is used for clinicalpurposes. Testosterone, Free 4.2(A) 35.0 - 155.0 pg/mL [facility] Comment:This test was develo ped and its analytical performancecharacteristics have been determined by [facility] [place] [place]. It hasnot been cleared or approved by the U.S. Food and DrugAdministration. This assay has been validated pursuantto the CLIA regulations and is used for clinicalpurposes.THIS TEST WAS PERFORMED AT:[employer] [id number] [place] [address]TZDLPEQKENNEDY MEJIAS MD,PHD 09/20/2022 7:23 AM EST 09/20/2022 7:23 AM EST [facility] External Provider LAB BLO OD ORDERABLES Final Result [facility] [address] [place] [phone] * Sex Hormone Binding Globulin (SHBG) (09/20/2022 7:23 AM EST) Sex Hormone Binding Globulin 25 22 - 77 nmol/L [facility] Comment:THIS TEST WAS PERFOR MED AT:[facility] [facility] [address] [address]PWGPGJONG VOGEL MD 09/20/2022 7:23 AM EST 09/20/2022 7:23 AM EST [facility] External Provider LAB BLO OD ORDERABLES Final Result Performing Organization Address [facility] de Phone Number [facility] [address] [place] [phone] * PSA,Total (09/20/2022 7:23 AM EST) Prostate Specific Antigen 0.14 <0.05 - 4.0 ng/mL [facility] Comment:PSA methodology: Abb katlyn Alibarryty i ChemiluminescentMicroparticle Immunoassay (CMIA) 09/20/2022 7:23 AM EST 09/20/2022 7:23 AM EST [facility] External Provider LAB BLO OD ORDERABLES Final Result Performing Organization Address [facility] Number [facility] [address] [place] [phone] * (ABNORMAL) Hematocrit (09/20/2022 7:23 AM EST) Hematocrit 41.9(L) 42.0 - 52.0 % [facility] 09/20/2022 7:23 AM EST 09/20/2022 7:23 AM EST [facility] External Provider LAB BLO OD ORDERABLES Final Result Performing Organization Address [facility] [place] [facility] de Phone Number [facility] [address] [place] [phone] * (ABNORMAL) Hemoglobin (09/20/2022 7:23 AM EST) Hemoglobin 13.6(L) 14.0 - 18.0 g/dl [facility] 09/20/2022 7:23 AM EST 09/20/2022 7:23 AM EST [facility] External Provider LAB BLO OD ORDERABLES Final Result Performing Organization Address [facility]/ZIP Co de Phone Number [facility] [address] [place] [phone] * (ABNORMAL) Testosterone, Free (Dialysis) And Total, MS (08/19/2022 7:17 AM EST) Pathologist [facility] Testosterone, Total 37(A) 250 - 1100 ng/dL [facility] Comment:For additional infor suni, please refer tohttp://education.ReDent Nova/faq/EmgafDzapchyunujtWKJZZNEGF102(This link is being provided for informational/educational purposes only.)This test was developed and its analytical performancecharacteristics have been determined by [facility] [place] [place]. It hasnot been cleared or approved by the U.S. Food and DrugAdministration. This assay has been validated pursuantto the CLIA regulations and is used for clinicalpurposes. Testosterone, Free 5.6(A) 35.0 - 155.0 pg/mL [facility] Comment:This test was develo ped and its analytical performancecharacteristics have been determined by [facility] [place] [place]. It hasnot been cleared or approved by the U.S. Food and DrugAdministration. This assay has been validated pursuantto the CLIA regulations and is used for clinicalpurposes.THIS TEST WAS PERFORMED AT:[employer] [facility] [id number] [place] [address]HCWQVKBKENNEDY MEJIAS MD,PHD 08/19/2022 7:17 AM EST 08/19/2022 7:17 AM EST us [facility] External Provider LAB BLO OD ORDERABLES Final Result Performing Organization Address City/[facility]/ZIP Co de Phone Number [facility] [address] [place] [phone] * IGF-1, LC/MS (08/19/2022 7:17 AM EST) [facility] IGF 1, LC/MS 91 50 - 317 ng/mL [facility] Z Score (Male) -0.8 -2.0 - 2.0 SD [facility] Comment:This test was develo ped and its analytical performancecharacteristics have been determined by [facility]. It has not beencleared or approved by FDA. This assay has been validatedpursuant to the CLIA regulations and is used for clinicalpurposes.THIS TEST WAS PERFORMED AT:[employer] [id number] [place] [address]QTUZSROB DUGGAN MD,PHD,LENO Z Score (Female) [facility] 08/19/2022 7:17 AM EST 08/19/2022 7:17 AM EST [facility] External Provider LAB BLO OD ORDERABLES Final Result [facility] [address] [place] [phone] * Prolactin, Dilution Study (08/19/2022 7:17 AM EST) Pathologist [facility] Prolactin, Undiluted 6.7 2.0 - 18.0 ng/mL [facility] Prolactin, Diluted SEE NOTE 2.0 - 18.0 ng/mL [facility] Comment:Result confirmed by 1:100 dilution. No high dosehook effect detected.Prolactin dilution studies are done to determine ifthere is a high-dose hook effect (i.e. a non-linearassay response due to a very high concentration ofProlactin). This is reported to occur at Prolactinconcentrations at or above 30,000 ng/mL.This test is not recommended for identifyingmacroprolactin. The [facility], Prolactin, Total and Monomeric is therecommended test (Order code [id number]).THIS TEST WAS PERFORMED AT:[facility] [facility] [address] ([address])[place] [address]JLXRXJONG VOGEL MD 08/19/2022 7:17 AM EST 08/19/2022 7:17 AM EST [facility] External Provider LAB BLO OD ORDERABLES Final Result Performing Organization Address [facility] Co de Phone Number [facility] [address] [place] [phone] * (ABNORMAL) LH (08/19/2022 7:17 AM EST) Lutenizing Hormone 0.6(A) 1.5 - 9.3 mIU/mL [facility] Comment:THIS TEST WAS PERFOR MED AT:[facility] [facility] [address] [address])[place] [address]TZYBKJOGN VOGEL MD 08/19/2022 7:17 AM EST 08/19/2022 7:17 AM EST [facility] External Provider LAB BLO OD ORDERABLES Final Result Performing Organization Address [facility] Phone Number [facility] [address] [place] [phone] * FSH (08/19/2022 7:17 AM EST) Follicle Stimulating Hormone 3.4 1.6 - 8.0 mIU/mL [facility] Comment:THIS TEST WAS PERFOR MED AT:[facility] [address] ([facility])[place] [address]DGZGHJONG VOGEL MD 08/19/2022 7:17 AM EST 08/19/2022 7:17 AM EST [facility] External Provider LAB BLO OD ORDERABLES Final Result Performing Organization Address [facility] Co de Phone Number [facility] [address] [place] [phone] * Sex Hormone Binding Globulin (SHBG) (08/19/2022 7:17 AM EST) Sex Hormone Binding Globulin 28 22 - 77 nmol/L [facility] Comment:THIS TEST WAS PERFOR MED AT:[facility] [address] ([address])[place] [address]GDQUAJILLIAN VOGEL MD 08/19/2022 7:17 AM EST 08/19/2022 7:17 AM EST [facility] External Provider LAB BLO OD ORDERABLES Final Result Performing Organization Address City/[facility]/ZIP Co de Phone Number [facility] [address] [place] [phone] * T3, Total (08/19/2022 7:17 AM EST) Pathologist [facility] T3, Total 99 76 - 181 ng/dL [facility] Comment:THIS TEST WAS PERFOR MED AT:[facility] [facility] [address] ([address])[place] [address]UWEGMJONG OVGEL MD 08/19/2022 7:17 AM EST 08/19/2022 7:17 AM EST [facility] External Provider LAB BLO OD ORDERABLES Final Result Performing Organization Address City/[facility]/ZIP Co de Phone Number [facility] [address] [place] [phone] [phone] * ACTH, Plasma (08/19/2022 7:17 AM EST) Pathologist [facility] ACTH, Plasma 32 6 - 50 pg/mL [facility] Comment:Reference range appl ies only to specimenscollected between 7am-10amTHIS TEST WAS PERFORMED AT:[facility] [facility] [address] ([facility])[place] [address]EKJCJJILLIAN VOGEL MD 08/19/2022 7:17 AM EST 08/19/2022 7:17 AM EST [facility] External Provider LAB BLO OD ORDERABLES Final Result Performing Organization Address [facility]/ZIP Co de Phone Number [facility] [address] [place] [phone] * Osmolality, Serum (08/19/2022 7:17 AM EST) Osmolality (Serum) 293 281 - 305 mosm/kg [facility] 08/19/2022 7:17 AM EST 08/19/2022 7:17 AM EST [facility] External Provider LAB BLO OD ORDERABLES Final Result Performing Organization Address [facility] de Phone Number [facility] [address] [place] [phone] * Cortisol Random (08/19/2022 7:17 AM EST) Pathologist [facility] Cortisol Random 16.3 ug/dL [facility] Comment:Reference Range*: Be fore 10 am 6.2-19.4 ug/dL After 5 pm 2.3-11.9 ug/dL*Please interpret above results accordingly.This test was performed using the [employer] chemiluminescentmethod. Values obtained from different assay methods cannotbe used interchangeably.Patients receiving fludrocortisone, prednisolone orprednisone may show artificially elevated cortisol valuesdue to cross-reactivity. 08/19/2022 7:17 AM EST 08/19/2022 7:17 AM EST [facility] External Provider LAB BLO OD ORDERABLES Final Result Performing Organization Address [facility] Co de Phone Number [facility] [address] [place] [phone] * TSH (08/19/2022 7:17 AM EST) Thyroid Stimulating Hormone 1.67 0.32 - 4.0 uIU/mL [facility] Comment:TSH 3rd Generation ( [facility]) 08/19/2022 7:17 AM EST 08/19/2022 7:17 AM EST [facility] External Provider LAB BLO OD ORDERABLES Final Result Performing Organization Address [facility] Co de Phone Number [facility] [address] [place] [phone] * (ABNORMAL) T4, Free (08/19/2022 7:17 AM EST) Free T4 (Free Thyroxine) 2.06(H) 0.71 - 1.85 ng/dL [facility] 08/19/2022 7:17 AM EST 08/19/2022 7:17 AM EST [facility] External Provider LAB BLO OD ORDERABLES Final Result Performing Organization Address [facility] Phone Number [facility] [address] [place] [phone] * (ABNORMAL) Basic Metabolic Panel (08/19/2022 7:17 AM EST) Pathologist [facility] Sodium 140 135 - 145 mmol/L [facility] Potassium 4.1 3.3 - 5.1 mmol/L [facility] Chloride 103 96 - 108 mmol/L [facility] Carbon Dioxide 26 22 - 29 mmol/L [facility] Anion Gap 15 12 - 20 [facility] Urea Nitrogen (BUN) 17(H) 9 - 16 mg/dL [facility] Creatinine, Serum 0.85 0.5 - 1.4 mg/dL [facility] Estimated Glomerular Filt Rate >60 [facility] Comment:NOTE: For -Am erican individuals, multiply the result by 1.210.Chronic Kidney Disease: Estimated GFR < 60 mL/min/1.52o5Wheppa Kidney Disease: Estimated GFR < 15 mL/min/1.73m2 Glucose 114 60 - 115 mg/dL [facility] Calcium 9.1 8.4 - 10.2 mg/dL [facility] 08/19/2022 7:17 AM EST 08/19/2022 7:17 AM EST us [facility] External Provider LAB BLO OD ORDERABLES Final Result [facility] [address] [place] [phone] [phone] documented in this encounter Visit Diagnoses Not on filedocumented in this encounter Care Teams Production Repairer Relationship Specialty Start Date End Date Livia Ramesh MD [address] [place] [phone] PCP - General Internal Medicine 07/25/18 [facility] 08/21/18 documented as of this encounter
== END 2025-01-04 11:02 | disposition home or self-care (01) ==
LOC: HO.HOS 10:00
PROVIDERS: PCP Internal Medicine; Visit Provider Orthopaedic Surgery
DX: M19.011 Primary osteoarthritis, right shoulder (principal); E11.9 Type 2 diabetes mellitus without complications
CPT/HCPCS: 20610; 99203

== ENCOUNTER → 2025-01-04 10:00 | Outpatient (BNVA) | payer OTHER, SELFPAY | PROVIDERS: PCP Internal Medicine; Visit Provider Orthopaedic Surgery | DX: M19.011 Primary osteoarthritis, right shoulder (principal); E11.9 Type 2 diabetes mellitus without complications; M25.511 Pain in right shoulder | CPT/HCPCS: 20610; 99202; J0665; J1100; J2003 ==

== ENCOUNTER 2025-01-21 07:53 | Outpatient (AMB) | payer OTHER, SELFPAY ==
--- OUTSIDE RECORDS SUMMARY | 2025-01-21 07:56 | XMS_ITS | Encounter Summary ---
Author Organization [employer] [facility] Address [address] [place] [address] [address] [place] [address] Care Team Providers Care Airport Operations Supervisor Name Role Phone Livia Ramesh MD Primary Care Provider Encounter Details Date Type Department Care Team (Late st Contact Info) Description 07/22/2022 Orders Only [facility] [address] [place] [address] Lisha John RN [address] [place], [place] [phone] Social History Tobacco Use Types Packs/Day Years [...] Description 03/07/2025 9:15 AM EDT Office Visit [facility] [address] [place] [address] Livia Ramesh MD [address] [place] [address] documented as of this encounter Procedures Procedure [...] And Total, MS (09/20/2022 7:23 AM EST) [facility] Signature Testosterone, Total 23(A) 250 - 1100 ng/dL [facility] Comment:For additional infor suni, please refer tohttp://education.X[employer].drumbi/faq/[email or web address](This link is being provided for informational/educational purposes only.)This test was developed and its analytical performancecharacteristics have been determined by [employer] [place], [place]. It hasnot been cleared or approved by the U.S. Food and DrugAdministration. This assay has been validated pursuantto the CLIA regulations and is used for clinicalpurposes. Testosterone, Free 4.2(A) 35.0 - 155.0 pg/mL [facility] Comment:This test was develo ped and its analytical performancecharacteristics have been determined by [employer] [place], [place]. It hasnot been cleared or approved by the U.S. Food and DrugAdministration. This assay has been validated pursuantto the CLIA regulations and is used for clinicalpurposes.THIS TEST WAS PERFORMED AT:[employer]/[email or web address] [id number] [place] [address]AETPTFJKENNEDY MEJIAS MD,PHD 09/20/2022 7:23 AM EST 09/20/2022 7:23 AM EST [facility] External Provider LAB BLO OD ORDERABLES Final Result [facility] [address] [place] [phone] * Sex Hormone Binding Globulin (SHBG) (09/20/2022 7:23 AM EST) Sex Hormone Binding Globulin 25 22 - 77 nmol/L [facility] Comment:THIS TEST WAS PERFOR MED AT:[employer] [address] [address]PVDMDJONG VOGEL MD 09/20/2022 7:23 AM EST 09/20/2022 7:23 AM EST [facility] External Provider LAB BLO OD ORDERABLES Final Result Performing Organization Address [facility] de Phone Number [facility] [address] [place] [phone] * PSA,Total (09/20/2022 7:23 AM EST) Prostate Specific Antigen 0.14 <0.05 - 4.0 ng/mL [facility] Comment:PSA methodology: Abb katlyn Alibarryty i ChemiluminescentMicroparticle Immunoassay (CMIA) 09/20/2022 7:23 AM EST 09/20/2022 7:23 AM EST [facility] External Provider LAB BLO OD ORDERABLES Final Result Performing Organization Address [facility] Number [facility] [address] [place] [phone] * (ABNORMAL) Hematocrit (09/20/2022 7:23 AM EST) Hematocrit 41.9(L) 42.0 - 52.0 % [facility] 09/20/2022 7:23 AM EST 09/20/2022 7:23 AM EST [facility] External Provider LAB BLO OD ORDERABLES Final Result Performing Organization Address [facility] de Phone Number [facility] [address] [place] [phone] * (ABNORMAL) Hemoglobin (09/20/2022 7:23 AM EST) Hemoglobin 13.6(L) 14.0 - 18.0 g/dl [facility] 09/20/2022 7:23 AM EST 09/20/2022 7:23 AM EST [facility] External Provider LAB BLO OD ORDERABLES Final Result Performing Organization Address [facility]/ZIP Co de Phone Number [facility] [address] [place] [phone] * (ABNORMAL) Testosterone, Free (Dialysis) And Total, MS (08/19/2022 7:17 AM EST) Pathologist [facility] Testosterone, Total 37(A) 250 - 1100 ng/dL [facility] Comment:For additional infor suni, please refer tohttp://education.TrepUp/faq/MzuptBeqkxepsnyarGUKTCPBZG842(This link is being provided for informational/educational purposes only.)This test was developed and its analytical performancecharacteristics have been determined by [employer] [place], [place]. It hasnot been cleared or approved by the U.S. Food and DrugAdministration. This assay has been validated pursuantto the CLIA regulations and is used for clinicalpurposes. Testosterone, Free 5.6(A) 35.0 - 155.0 pg/mL [facility] Comment:This test was develo ped and its analytical performancecharacteristics have been determined by [employer] [place], [place]. It hasnot been cleared or approved by the U.S. Food and DrugAdministration. This assay has been validated pursuantto the CLIA regulations and is used for clinicalpurposes.THIS TEST WAS PERFORMED AT:[employer]/[facility] [id number] [place] [address]BBXCRJPKENNEDY MEJIAS MD,PHD 08/19/2022 7:17 AM EST 08/19/2022 7:17 AM EST us [facility] External Provider LAB BLO OD ORDERABLES Final Result Performing Organization Address City/[facility]/ZIP Co de Phone Number [facility] [address] [place] [phone] * IGF-1, LC/MS (08/19/2022 7:17 AM EST) [facility] IGF 1, LC/MS 91 50 - 317 ng/mL [facility] Z Score (Male) -0.8 -2.0 - 2.0 SD [facility] Comment:This test was develo ped and its analytical performancecharacteristics have been determined by [employer]. It has not beencleared or approved by FDA. This assay has been validatedpursuant to the CLIA regulations and is used for clinicalpurposes.THIS TEST WAS PERFORMED AT:[employer]/[email or web address] [id number] [place] [address]ENLGVROB DUGGAN MD,PHD,LENO Z Score (Female) [facility] 08/19/2022 7:17 AM EST 08/19/2022 7:17 AM EST [facility] External Provider LAB BLO OD ORDERABLES Final Result [facility] [address] [place] [phone] * Prolactin, Dilution Study (08/19/2022 7:17 AM EST) Pathologist [facility] Prolactin, Undiluted 6.7 2.0 - 18.0 ng/mL [facility] Prolactin, Diluted SEE NOTE 2.0 - 18.0 ng/mL [facility] Comment:Result confirmed by 1:100 dilution. No high dosehook effect detected.Prolactin dilution studies are done to determine ifthere is a high-dose hook effect (i.e. a non-linearassay response due to a very high concentration ofProlactin). This is reported to occur at Prolactinconcentrations at or above 30,000 ng/mL.This test is not recommended for identifyingmacroprolactin. The [employer] [facility], Prolactin, Total and Monomeric is therecommended test (Order code [id number]).THIS TEST WAS PERFORMED AT:[employer] [address] ([address])[place] [address]HKXQHJONG VOGEL MD 08/19/2022 7:17 AM EST 08/19/2022 7:17 AM EST [facility] External Provider LAB BLO OD ORDERABLES Final Result Performing Organization Address [facility] Co de Phone Number [facility] [address] [place] [phone] * (ABNORMAL) LH (08/19/2022 7:17 AM EST) Lutenizing Hormone 0.6(A) 1.5 - 9.3 mIU/mL [facility] Comment:THIS TEST WAS PERFOR MED AT:[employer] [address] [address])[place] [address]BVUOMJONG VOGEL MD 08/19/2022 7:17 AM EST 08/19/2022 7:17 AM EST [facility] External Provider LAB BLO OD ORDERABLES Final Result Performing Organization Address [facility] Phone Number [facility] [address] [place] [phone] * FSH (08/19/2022 7:17 AM EST) Follicle Stimulating Hormone 3.4 1.6 - 8.0 mIU/mL [facility] Comment:THIS TEST WAS PERFOR MED AT:[employer] [address] ([facility])[place] [address]QXSTFJONG VOGEL MD 08/19/2022 7:17 AM EST 08/19/2022 7:17 AM EST [facility] External Provider LAB BLO OD ORDERABLES Final Result Performing Organization Address [facility] Co de Phone Number [facility] [address] [place] [phone] * Sex Hormone Binding Globulin (SHBG) (08/19/2022 7:17 AM EST) Sex Hormone Binding Globulin 28 22 - 77 nmol/L [facility] Comment:THIS TEST WAS PERFOR MED AT:[employer] [address] ([address])[place] [address]YHQAYJILLIAN VOGEL MD 08/19/2022 7:17 AM EST 08/19/2022 7:17 AM EST [facility] External Provider LAB BLO OD ORDERABLES Final Result Performing Organization Address City/[facility]/ZIP Co de Phone Number [facility] [address] [place] [phone] * T3, Total (08/19/2022 7:17 AM EST) Pathologist [facility] T3, Total 99 76 - 181 ng/dL [facility] Comment:THIS TEST WAS PERFOR MED AT:[employer] [address] ([address])[place] [address]YKSQXJONG VOGEL MD 08/19/2022 7:17 AM EST 08/19/2022 7:17 AM EST [facility] External Provider LAB BLO OD ORDERABLES Final Result Performing Organization Address City/[facility]/ZIP Co de Phone Number [facility] [address] [place] [phone] * ACTH, Plasma (08/19/2022 7:17 AM EST) Pathologist [facility] ACTH, Plasma 32 6 - 50 pg/mL [facility] Comment:Reference range appl ies only to specimenscollected between 7am-10amTHIS TEST WAS PERFORMED AT:[employer] [address] ([facility])[place] [address]WTXSXJILLIAN VOGEL MD 08/19/2022 7:17 AM EST 08/19/2022 7:17 AM EST [facility] External Provider LAB BLO OD ORDERABLES Final Result Performing Organization Address [facility]/ZIP Co de Phone Number [facility] [address] [place] [phone] * Osmolality, Serum (08/19/2022 7:17 AM EST) Osmolality (Serum) 293 281 - 305 mosm/kg [facility] 08/19/2022 7:17 AM EST 08/19/2022 7:17 AM EST [facility] External Provider LAB BLO OD ORDERABLES Final Result Performing Organization Address [facility] de Phone Number [facility] [address] [place] [phone] * Cortisol Random (08/19/2022 7:17 AM EST) Pathologist [facility] Cortisol Random 16.3 ug/dL [facility] Comment:Reference Range*: Be fore 10 am 6.2-19.4 ug/dL After 5 pm 2.3-11.9 ug/dL*Please interpret above results accordingly.This test was performed using the [employer] chemiluminescentmethod. Values obtained from different assay methods cannotbe used interchangeably.Patients receiving fludrocortisone, prednisolone orprednisone may show artificially elevated cortisol valuesdue to cross-reactivity. 08/19/2022 7:17 AM EST 08/19/2022 7:17 AM EST [facility] External Provider LAB BLO OD ORDERABLES Final Result Performing Organization Address [facility] Co de Phone Number [facility] [address] [place] [phone] * TSH (08/19/2022 7:17 AM EST) Thyroid Stimulating Hormone 1.67 0.32 - 4.0 uIU/mL [facility] Comment:TSH 3rd Generation ( [facility]) 08/19/2022 7:17 AM EST 08/19/2022 7:17 AM EST [facility] External Provider LAB BLO OD ORDERABLES Final Result Performing Organization Address [facility] Co de Phone Number [facility] [address] [place] [phone] * (ABNORMAL) T4, Free (08/19/2022 7:17 AM EST) Free T4 (Free Thyroxine) 2.06(H) 0.71 - 1.85 ng/dL [facility] 08/19/2022 7:17 AM EST 08/19/2022 7:17 AM EST [facility] External Provider LAB BLO OD ORDERABLES Final Result Performing Organization Address [facility] Phone Number [facility] [address] [place] [phone] * (ABNORMAL) Basic Metabolic Panel (08/19/2022 7:17 AM EST) Pathologist [facility] Sodium 140 135 - 145 mmol/L [facility] Potassium 4.1 3.3 - 5.1 mmol/L [facility] Chloride 103 96 - 108 mmol/L [facility] Carbon Dioxide 26 22 - 29 mmol/L [facility] Anion Gap 15 12 - 20 [facility] Urea Nitrogen (BUN) 17(H) 9 - 16 mg/dL [facility] Creatinine, Serum 0.85 0.5 - 1.4 mg/dL [facility] Estimated Glomerular Filt Rate >60 [facility] Comment:NOTE: For -Am erican individuals, multiply the result by 1.210.Chronic Kidney Disease: Estimated GFR < 60 mL/min/1.66q1Bylkii Kidney Disease: Estimated GFR < 15 mL/min/1.73m2 Glucose 114 60 - 115 mg/dL [facility] Calcium 9.1 8.4 - 10.2 mg/dL [facility] 08/19/2022 7:17 AM EST 08/19/2022 7:17 AM EST us [facility] External Provider LAB BLO OD ORDERABLES Final Result [facility] [address] [place] [phone] documented in this encounter Visit Diagnoses Not on filedocumented in this encounter Care Teams Airport Operations Supervisor Relationship Specialty Start Date End Date Livia Ramesh MD [address] [place] [phone] PCP - General Internal Medicine 07/25/18 [facility] 08/21/18 documented as of this encounter
--- NOTE | 2025-01-21 07:57 | MHC.OFFVIS ---
Vital Signs 01/21/25 08:01 Height 5 ft 7 in Weight 208 lb 5.389 oz BMI 32.6 BP 106/54 L Blood Pressure Location Rt brachial Position Sitting Pulse 71 Pulse Source Pulse Oximeter Pulse Oximetry (%) 95 Oxygen Delivery Method Room Air Intake Visit Reasons: Pituitary microadenoma, Hypogonadism Intake Note: Patient present today for Pituitary microadenoma and Hypogonadism follow up visit. [employer] Supervisor Required: Yes [employer] Supervisor Language: Cloth Mercer[employer] Back Tender Services: [employer] Supervisor Present [employer] Supervisor Name: Desmond [phone] Information Interpreted: non-clinical & clinical Accompanied by: Self / Same As Patient Allergies No Known Allergies (No Known Allergies*) Allergy (Verified 01/21/25 08:02) Medication List - Last Reconciled 01/21/25 by Grey Tinajero MD albuterol sulfate 90 mcg/actuation (ProAir HFA) 2 puffs inhalation Q6H PRN bupropion HCl SR (Wellbutrin SR) 150 mg PO BID dexamethasone 1 mg PO DAILY ferrous sulfate (FeroSul) 325 mg PO Q OTHER DAY fluticasone propion-salmeterol 250-50 mcg/dose (Wixela Inhub) 1 inh inhalation BID gabapentin 100 mg PO BEDTIME ipratropium-albuterol 20-100 mcg/actuation (Combivent Respimat) 1 puff inhalation QID lidocaine 5% 5 appl topical DAILY methadone 52 mg PO DAILY omeprazole 20 mg PO DAILY pantoprazole 1 tab PO DAILY polyethylene glycol 3350 8.5 grams PO DAILY PRN propranolol 1 tab PO BID risperidone 2 mg PO BEDTIME testosterone (AndroGel) 1 packet transdermal DAILY 30 days trazodone 1 tab PO BEDTIME HPI Comments Details: 59 YO Male with PMHx Hypogonadism who is seen in F/U for a pituitary microadenoma and hypogonadism. First diagnosed with Hypogonadism in the early s. Was started on Testosterone supplementation with androgel. Stopped this in 2018. He is unsure why this was stopped. We checked labs after our initial visit, and this revealed hypogonadotropic hypogonadism. Pituitary MRI was checked 01/28/21 which revealed a 0.9 cm pituitary microadenoma. There did not appear to be encroachment on the optic apparatus. A full pituitary panel was checked which confirmed hypogonadotropic hypogonadism, but was otherwise WNL. Prolactin was WNL, but unfortunately dilution was initially not assessed. Prolactin was repeated, including by dilution, and both were WNL. He was started on Androgel 1 packet transdermal daily. Testosterone was at goal on this, but he stopped it of his own accord. Repeat testosterone levels after 2 months off treatment were WNL, so he was not resumed on androgel. Levels were repeated again and now are in hypogonadal range. He was again resumed on androgel 1 packet transdermal daily, but has not yet repeated labs. Pituitary MRI was repeated 02/03/2023 and was unchanged from prior. He does complain of headaches, but denies blurred vision and double vision. He does report pressure/pain in the right eye. He was referred to Ophtho and underwent a visual field exam 05/28/2021. Visual castillo were WNL at that time. He was asked to F/U again with optho but has not yet done so. He has an appointment for January. He was also referred to neurosurgery due to his headaches, and has his appointment coming up next month. He did have a DXA which reveals osteopenia at all sites. with children who were conceived spontaneously. He does have VICTORIA and uses his CPAP nightly. Denies gynecomastia or galactorrhea. Denies any history of DVT or PE. Pituitary MRI: 02/03/2023 TECHNIQUE: MRI of the brain was obtained using pituitary protocol without and following the administration of 5 mL of Gadavist intravenous contrast. FINDINGS: No focal restricted diffusion is demonstrated to suggest acute or subacute cerebral ischemia. Scattered periventricular and deep white matter T2 FLAIR hyperintensities consistent with mild underlying microangiopathy. Proportional prominence of the ventricles and sulcal spaces without evidence of obstructive hydrocephalus. No abnormal mass effect. No midline shift. Stable appearance of the hypoenhancing lesion inferior to the anterior aspect of the pituitary gland, measuring up to 0.8 x 0.6 x 0.6 cm. This lesion demonstrates T2 hyperintensity. There is no new hyperenhancing lesion demonstrated on post contrast imaging. The pituitary infundibulum is minimally deviated to the right. The suprasellar cistern remains patent. No abnormal mass effect on the optic chiasm. Normal positioning of the cerebellar tonsils. Normal arterial and venous vascular flow voids are present. No abnormal contrast enhancement. Normal, homogeneous marrow signal. Mild mucosal thickening of the paranasal sinuses. No signal abnormalities within the mastoids. MR/MR head/brain wo/w con IMPRESSION: 1.? Stable appearance of a 0.8 cm hypoenhancing lesion inferior to the anterior aspect of the pituitary gland, suggestive of a pituitary microadenoma. 2.? No acute intracranial abnormalities. No additional abnormal intracranial enhancement. 3.? Mild underlying microangiopathy and generalized cerebral volume loss. DXA: 08/24/2022 FINDINGS: AP SPINE L1-L2 (excluding L3 and L4): The data of L1-L4 has been changed to exclude the L3 and L4 vertebral bodies, because degenerative changes at these levels may cause overestimation of lumbar spine density. BMD 0.988 g/cm2, Z-score -2.2, T-score -1.8, osteopenia. LEFT FEMUR, NECK: BMD 0.892 g/cm2, Z-score -1.0, T-score -1.4, osteopenia. LEFT FEMUR, TOTAL: BMD 1.017 g/cm2, Z-score -0.6, T-score -0.6, normal. Labs: Laboratory Tests 03/08/22 03/08/22 08/19/22 09:07 09:07 07:17 Sodium 140 Potassium 4.1 Creatinine 0.85 Estimated GFR > 60 Osmolality Prostate Specific Ag 0.08 25-OH Vitamin D Total 30.6 TSH 1.67 Free T4 2.06 H Total T3 FSH 2.4 Luteinizing Hormone 0.9 L Prolactin Undiluted 5.5 Total Testosterone 21 L Fr Testosterone Dialys 3.8 L Sex Hormone Bind Glob Random Cortisol ACTH 08/19/22 08/19/22 08/19/22 07:17 07:17 07:17 Sodium Potassium Creatinine Estimated GFR Osmolality 293 Prostate Specific Ag 25-OH Vitamin D Total TSH Free T4 Total T3 99 FSH Luteinizing Hormone Prolactin Undiluted Total Testosterone Fr Testosterone Dialys Sex Hormone Bind Glob 28 Random Cortisol ACTH 32 08/19/22 07:17 Sodium Potassium Creatinine Estimated GFR Osmolality Prostate Specific Ag 25-OH Vitamin D Total TSH Free T4 Total T3 FSH Luteinizing Hormone Prolactin Undiluted Total Testosterone Fr Testosterone Dialys Sex Hormone Bind Glob Random Cortisol 16.3 ACTH Was supposed to be on Testosterone gel 1 packet QD. Feels more energy, better libido . Some problem with urine stream. Uses CPAP mask . No worsening headache but c/o loss of vision and loss of color vision PFSH Medical History Osteopenia Goiter Pituitary microadenoma Hypogonadotropic hypogonadism Hypogonadism in male Vitamin D deficiency Hypogonadism Thrombocytopenia Osteoarthritis Myalgia Sleep apnea Colon polyps Hepatitis C VICTORIA (obstructive sleep apnea) COPD (chronic obstructive pulmonary disease) Surgical History Hx of carpal tunnel repair Family History Maternal Aunt Cancer Father Diabetes Paternal Aunt Diabetes Paternal Aunt Diabetes Social History Alcohol intake: former Patient Tobacco Use Status: Current everyday Tobacco user Cigarette Packs Per Day: 10 Years Smoked: 45 Substance Use Type: Prescription Drugs Current occupational status: unemployed Current occupation: rt handed Physical Exam Vital Signs: Last Vital Signs Pulse 71 01/21/25 08:01 BP 106/54 L 01/21/25 08:01 Pulse Ox 95 01/21/25 08:01 Oxygen Delivery Method Room Air 01/21/25 08:01 BMI result Body Mass Index 32.6 Const Other: There was no visual defect on gross confrontation. Rectal examination reveals a normal smooth prostate Assessment & Plan Assessment & Plan (1) Hypogonadotropic hypogonadism: Code(s): E23.0 - Hypopituitarism Category: Medical Plan: This is a 59-year-old male with a history of secondary hypogonadism. He was being replaced on testosterone gel 50 g 1 packet per day. Testosterone now is in normal range Plan is to continue the testosterone. Went over side effects of testosterone with patient including but not limited to enlargement of the prostate with unmasking of prostate cancer, polycythemia and DVT. The patient was told to call should he run outof testosterone. I also made a referral to Urology to evaluate his difficulty with urine stream and told him to stop the testosterone should this problem become worse. Although there was no visual field defect on gross confrontation, I did refer him for repeat MRI because of his visual complaints. (2) Pituitary microadenoma: Code(s): D35.2 - Benign neoplasm of pituitary gland Category: Medical Plan: History of pituitary micro- adenoma appears to be non secretory with stability in the size on the MRI Will continue to follow. We will get a repeat MRI as described above because of visual complaints Orders: Orders MR head/brain wo/w con Today D35.2 - Benign neoplasm of pituitary gland Testosterone, Free/Total 6 Months E23.0 - Hypopituitarism Hemoglobin 6 Months E23.0 - Hypopituitarism Hematocrit 6 Months E23.0 - Hypopituitarism Prostate Specific Antigen 6 Months E23.0 - Hypopituitarism Referrals Urology Referral N40.1 - Benign prostatic hyperplasia with lower urinary tract symptoms, R39.11 - Hesitancy of micturition Medications: Refilled testosterone (AndroGel) 1 packet transdermal DAILY 150 grams 2RF 30 days E23.0 - Hypopituitarism Coding Level of Care Code Est Pt Level 3 (74337) Diagnoses Hypogonadotropic hypogonadism E23.0 Pituitary microadenoma D35.2
[2025-01-21 08:01] VITALS: BP 106/54; PULSE 71; O2SAT 95; BMI 32.6
== END 2025-01-21 08:23 | disposition home or self-care (01) ==
LOC: HO.ENCR 07:54
PROVIDERS: PCP Internal Medicine; Visit Provider Internal Medicine Endocrinology, Diabetes & Metabolism
DX: E23.0 Hypopituitarism (principal); D35.2 Benign neoplasm of pituitary gland
CPT/HCPCS: 99213

== ENCOUNTER → 2025-01-21 07:53 | Outpatient (BNVA) | payer OTHER, SELFPAY | PROVIDERS: PCP Internal Medicine; Visit Provider Internal Medicine Endocrinology, Diabetes & Metabolism | DX: E23.0 Hypopituitarism (principal); D35.2 Benign neoplasm of pituitary gland | CPT/HCPCS: 99212 ==

== ENCOUNTER → 2025-02-28 08:27 | Outpatient (BNV) | payer OTHER, SELFPAY | PROVIDERS: PCP Internal Medicine; Visit Provider Radiology Diagnostic Radiology | DX: D35.2 Benign neoplasm of pituitary gland (principal) | CPT/HCPCS: 70553 ==

== ENCOUNTER 2025-02-28 08:34 | Outpatient (REF) | payer OTHER, SELFPAY ==
--- NOTE | ~2025-02-28 | MR_ITS ---
EXAMINATION: MR BRAIN AND SELLA WITHOUT AND WITH CONTRAST CLINICAL INFORMATION: Follow-up benign neoplasm pituitary gland. COMPARISON: 06/16/2024, 02/03/2023. TECHNIQUE: Multiplanar, multisequence MRI of the brain and sella was obtained before and after the intravenous administration of 5 mL Gadavist. Examination performed on a 1.5 Sveta Siemens high-field unit. FINDINGS: SELLA: Redemonstration of a hypoenhancing lesion in the anterior aspect of the pituitary gland, measuring 0.5 x 0.8 x 0.6 cm, (AP, TRV, CC), essentially unchanged in size compared with the prior examination where it measured 0.6 x 0.8 x 0.7 cm, respectively. There is no suprasellar extension or mass effect upon the suprasellar structures or optic apparatus. There is no invasion of the cavernous sinuses. There are maintained normal signal voids in the carotid siphons without evidence of carotid encasement. The infundibulum is slightly right deviated, normal in thickness, and enhances normally. BRAIN: There is no diffusion restriction. There is no intracranial hemorrhage, acute infarction, mass effect, or edema. Ventricles, sulci, and cisterns are normal in size and configuration for patient age. No shift of midline. No abnormal hemosiderin deposition is identified. There are a few scattered punctate foci of white matter T2 hyperintensity in the periventricular, subcortical, and hemispheric deep white matter. These foci are nonspecific but statistically most likely relate to small vessel ischemic changes. Midline structures appear normally formed. The pituitary gland appears normal. Posterior fossa structures appear normal. Cerebellar tonsils are appropriately located. Major flow voids are preserved within the skull base. The globes and orbital contents demonstrate no abnormalities. Paranasal sinuses are clear bilaterally. The mastoids and tympanic cavities are normally aerated. Extracranial soft tissues demonstrate no abnormalities. No suspicious bone marrow changes are evident. Atlantoaxial joint demonstrates mild to moderate degenerative change. MR/MR head/brain wo/w con IMPRESSION: 1. Essentially unchanged pituitary microadenoma within the anterior aspect of the gland as described. 2. No evidence of intracranial hemorrhage, acute infarction, mass effect, or edema. No abnormal intra or extra-axial enhancement identified. 3. Stable minimal changes of small vessel ischemia. Electronically signed by: Leobardo Montano MD 02/28/2025 09:54 AM EDT
--- OUTSIDE RECORDS SUMMARY | 2025-02-28 08:49 | XMS_ITS | Encounter Summary ---
Author Organization [employer] [facility] Address [address] [place] [address] [address] [place] [address] Care Team Providers Care Promotions Associate Name Role Phone Livia Ramesh MD Primary Care Provider Encounter Details Date Type Department Care Team (Late st Contact Info) Description 07/22/2022 Orders Only [facility] [address] [place] [address] Lisha John RN [address] [place], [place] [phone] Social History Tobacco Use Types Packs/Day Years [...] Description 03/07/2025 9:15 AM EDT Office Visit [facility] [address] [place] [address] Livia Ramesh MD [address] [place] [address] documented as of this encounter Procedures Procedure [...] And Total, MS (09/20/2022 7:23 AM EST) [facility] Signature Testosterone, Total 23(A) 250 - 1100 ng/dL [facility] Comment:For additional infor suni, please refer [email or web address].[email or web address]/faq/[email or web address](This link is being provided for informational/educational purposes only.)This test was developed and its analytical performancecharacteristics have been determined by [employer] [place], [place]. It hasnot been cleared or approved by the U.S. Food and DrugAdministration. This assay has been validated pursuantto the CLIA regulations and is used for clinicalpurposes. Testosterone, Free 4.2(A) 35.0 - 155.0 pg/mL [facility] Comment:This test was develo ped and its analytical performancecharacteristics have been determined by [employer] [place]. It hasnot been cleared or approved by the U.S. Food and DrugAdministration. This assay has been validated pursuantto the CLIA regulations and is used for clinicalpurposes.THIS TEST WAS PERFORMED AT:[employer] [id number] [place] [address]JXNEGJVKENNEDY MEJIAS MD,PHD 09/20/2022 7:23 AM EST 09/20/2022 7:23 AM EST [facility] External Provider LAB BLO OD ORDERABLES Final Result [facility] [address] [place] [phone] * Sex Hormone Binding Globulin (SHBG) (09/20/2022 7:23 AM EST) Sex Hormone Binding Globulin 25 22 - 77 nmol/L [facility] Comment:THIS TEST WAS PERFOR MED AT:[employer] [address] [address]UXWJLJONG VOGEL MD 09/20/2022 7:23 AM EST 09/20/2022 7:23 AM EST [facility] External Provider LAB BLO OD ORDERABLES Final Result Performing Organization Address [facility] de Phone Number [facility] [address] [place] [phone] * PSA,Total (09/20/2022 7:23 AM EST) Prostate Specific Antigen 0.14 <0.05 - 4.0 ng/mL [facility] Comment:PSA methodology: Abb katlyn Alibarryty i ChemiluminescentMicroparticle Immunoassay (CMIA) 09/20/2022 7:23 AM EST 09/20/2022 7:23 AM EST [facility] External Provider LAB BLO OD ORDERABLES Final Result Performing Organization Address [facility] Number [facility] [address] [place] [phone] * (ABNORMAL) Hematocrit (09/20/2022 7:23 AM EST) Hematocrit 41.9(L) 42.0 - 52.0 % [facility] 09/20/2022 7:23 AM EST 09/20/2022 7:23 AM EST [facility] External Provider LAB BLO OD ORDERABLES Final Result Performing Organization Address [facility] de Phone Number [facility] [address] [place] [phone] * (ABNORMAL) Hemoglobin (09/20/2022 7:23 AM EST) Hemoglobin 13.6(L) 14.0 - 18.0 g/dl [facility] 09/20/2022 7:23 AM EST 09/20/2022 7:23 AM EST [facility] External Provider LAB BLO OD ORDERABLES Final Result Performing Organization Address [facility]/ZIP Co de Phone Number [facility] [address] [place] [phone] * (ABNORMAL) Testosterone, Free (Dialysis) And Total, MS (08/19/2022 7:17 AM EST) Pathologist [facility] Testosterone, Total 37(A) 250 - 1100 ng/dL [facility] Comment:For additional infor suni, please refer [email or web address].[employer])/faq/XrgdiYgkrqshjbuuqDDYGLMHRM317(This link is being provided for informational/educational purposes only.)This test was developed and its analytical performancecharacteristics have been determined by [employer] [place], [place]. It hasnot been cleared or approved by the U.S. Food and DrugAdministration. This assay has been validated pursuantto the CLIA regulations and is used for clinicalpurposes. Testosterone, Free 5.6(A) 35.0 - 155.0 pg/mL [facility] Comment:This test was develo ped and its analytical performancecharacteristics have been determined by [employer] [place]. It hasnot been cleared or approved by the U.S. Food and DrugAdministration. This assay has been validated pursuantto the CLIA regulations and is used for clinicalpurposes.THIS TEST WAS PERFORMED AT:[employer]/[facility] [id number] [place] [address]AHQMSUCKENNEDY MEJIAS MD,PHD 08/19/2022 7:17 AM EST 08/19/2022 7:17 AM EST us [facility] External Provider LAB BLO OD ORDERABLES Final Result Performing Organization Address City/[facility]/ZIP Co de Phone Number [facility] [address] [place] [phone] * IGF-1, LC/MS (08/19/2022 7:17 AM EST) [facility] IGF 1, LC/MS 91 50 - 317 ng/mL [facility] Z Score (Male) -0.8 -2.0 - 2.0 SD [facility] Comment:This test was develo ped and its analytical performancecharacteristics have been determined by [facility]. It has not beencleared or approved by FDA. This assay has been validatedpursuant to the CLIA regulations and is used for clinicalpurposes.THIS TEST WAS PERFORMED AT:[employer] [id number] [place] [address]NQRLEROB DUGGAN MD,PHD,LENO Z Score (Female) [facility] 08/19/2022 7:17 AM EST 08/19/2022 7:17 AM EST [facility] External Provider LAB BLO OD ORDERABLES Final Result [facility] [address] [place] [phone] * Prolactin, Dilution Study (08/19/2022 7:17 AM EST) Pathologist [facility] Prolactin, Undiluted 6.7 2.0 - 18.0 ng/mL [facility] Prolactin, Diluted SEE NOTE 2.0 - 18.0 ng/mL [facility] Comment:Result confirmed by 1:100 dilution. No high dosehook effect detected.Prolactin dilution studies are done to determine ifthere is a high-dose hook effect (i.e. a non-linearassay response due to a very high concentration ofProlactin). This is reported to occur at Prolactinconcentrations at or above 30,000 ng/mL.This test is not recommended for identifyingmacroprolactin. The [facility], Prolactin, Total and Monomeric is therecommended test (Order code [id number]).THIS TEST WAS PERFORMED AT:[employer] [address] ([address])[place] [address]ZSMEWJONG VOGEL MD 08/19/2022 7:17 AM EST 08/19/2022 7:17 AM EST [facility] External Provider LAB BLO OD ORDERABLES Final Result Performing Organization Address [facility] Co de Phone Number [facility] [address] [place] [phone] * (ABNORMAL) LH (08/19/2022 7:17 AM EST) Lutenizing Hormone 0.6(A) 1.5 - 9.3 mIU/mL [facility] Comment:THIS TEST WAS PERFOR MED AT:[employer] [address] [address])[place] [address]CBJSBJONG VOGEL MD 08/19/2022 7:17 AM EST 08/19/2022 7:17 AM EST [facility] External Provider LAB BLO OD ORDERABLES Final Result Performing Organization Address [facility] Phone Number [facility] [address] [place] [phone] * FSH (08/19/2022 7:17 AM EST) Follicle Stimulating Hormone 3.4 1.6 - 8.0 mIU/mL [facility] Comment:THIS TEST WAS PERFOR MED AT:[employer] [address] ([facility])[place] [address]LVWNXJONG VOGEL MD 08/19/2022 7:17 AM EST 08/19/2022 7:17 AM EST [facility] External Provider LAB BLO OD ORDERABLES Final Result Performing Organization Address [facility] Co de Phone Number [facility] [address] [place] [phone] * Sex Hormone Binding Globulin (SHBG) (08/19/2022 7:17 AM EST) Sex Hormone Binding Globulin 28 22 - 77 nmol/L [facility] Comment:THIS TEST WAS PERFOR MED AT:[employer] [address] ([address])[place] [address]HYLPXJILLIAN VOGEL MD 08/19/2022 7:17 AM EST 08/19/2022 7:17 AM EST [facility] External Provider LAB BLO OD ORDERABLES Final Result Performing Organization Address City/[facility]/ZIP Co de Phone Number [facility] [address] [place] [phone] * T3, Total (08/19/2022 7:17 AM EST) Pathologist [facility] T3, Total 99 76 - 181 ng/dL [facility] Comment:THIS TEST WAS PERFOR MED AT:[employer] [address] ([address])[place] [address]EGBCOJONG VOGEL MD 08/19/2022 7:17 AM EST 08/19/2022 7:17 AM EST [facility] External Provider LAB BLO OD ORDERABLES Final Result Performing Organization Address City/[facility]/ZIP Co de Phone Number [facility] [address] [place] [phone] * ACTH, Plasma (08/19/2022 7:17 AM EST) Pathologist [facility] ACTH, Plasma 32 6 - 50 pg/mL [facility] Comment:Reference range appl ies only to specimenscollected between 7am-10amTHIS TEST WAS PERFORMED AT:[employer] [address] ([facility])[place] [address]JJDHRJILLIAN VOGEL MD 08/19/2022 7:17 AM EST 08/19/2022 7:17 AM EST [facility] External Provider LAB BLO OD ORDERABLES Final Result Performing Organization Address [facility]/ZIP Co de Phone Number [facility] [address] [place] [phone] * Osmolality, Serum (08/19/2022 7:17 AM EST) Osmolality (Serum) 293 281 - 305 mosm/kg [facility] 08/19/2022 7:17 AM EST 08/19/2022 7:17 AM EST [facility] External Provider LAB BLO OD ORDERABLES Final Result Performing Organization Address [facility] de Phone Number [facility] [address] [place] [phone] * Cortisol Random (08/19/2022 7:17 AM EST) Pathologist [facility] Cortisol Random 16.3 ug/dL [facility] Comment:Reference Range*: Be fore 10 am 6.2-19.4 ug/dL After 5 pm 2.3-11.9 ug/dL*Please interpret above results accordingly.This test was performed using the [employer] chemiluminescentmethod. Values obtained from different assay methods cannotbe used interchangeably.Patients receiving fludrocortisone, prednisolone orprednisone may show artificially elevated cortisol valuesdue to cross-reactivity. 08/19/2022 7:17 AM EST 08/19/2022 7:17 AM EST [facility] External Provider LAB BLO OD ORDERABLES Final Result Performing Organization Address [facility] Co de Phone Number [facility] [address] [place] [phone] * TSH (08/19/2022 7:17 AM EST) Thyroid Stimulating Hormone 1.67 0.32 - 4.0 uIU/mL [facility] Comment:TSH 3rd Generation ( [facility]) 08/19/2022 7:17 AM EST 08/19/2022 7:17 AM EST [facility] External Provider LAB BLO OD ORDERABLES Final Result Performing Organization Address [facility] Co de Phone Number [facility] [address] [place] [phone] * (ABNORMAL) T4, Free (08/19/2022 7:17 AM EST) Free T4 (Free Thyroxine) 2.06(H) 0.71 - 1.85 ng/dL [facility] 08/19/2022 7:17 AM EST 08/19/2022 7:17 AM EST [facility] External Provider LAB BLO OD ORDERABLES Final Result Performing Organization Address [facility] Phone Number [facility] [address] [place] [phone] * (ABNORMAL) Basic Metabolic Panel (08/19/2022 7:17 AM EST) Pathologist [facility] Sodium 140 135 - 145 mmol/L [facility] Potassium 4.1 3.3 - 5.1 mmol/L [facility] Chloride 103 96 - 108 mmol/L [facility] Carbon Dioxide 26 22 - 29 mmol/L [facility] Anion Gap 15 12 - 20 [facility] Urea Nitrogen (BUN) 17(H) 9 - 16 mg/dL [facility] Creatinine, Serum 0.85 0.5 - 1.4 mg/dL [facility] Estimated Glomerular Filt Rate >60 [facility] Comment:NOTE: For -Am erican individuals, multiply the result by 1.210.Chronic Kidney Disease: Estimated GFR < 60 mL/min/1.65l7Ofwvfn Kidney Disease: Estimated GFR < 15 mL/min/1.73m2 Glucose 114 60 - 115 mg/dL [facility] Calcium 9.1 8.4 - 10.2 mg/dL [facility] 08/19/2022 7:17 AM EST 08/19/2022 7:17 AM EST us [facility] External Provider LAB BLO OD ORDERABLES Final Result [facility] [address] [place] [phone] documented in this encounter Visit Diagnoses Not on filedocumented in this encounter Care Teams Promotions Associate Relationship Specialty Start Date End Date Livia Ramesh MD [address] [place] [phone] PCP - General Internal Medicine 07/25/18 [facility] 08/21/18 documented as of this encounter
--- OUTSIDE RECORDS SUMMARY | 2025-02-28 08:49 | XMS_ITS | Clinical Summary ---
Author Organization [facility] Address [address] [place] [address] Phone Care Team Providers Care Sample Maker Hand Name Role Phone Livia Ramesh MD Primary Care Pr ovider Social History Tobacco Use Types Packs/Day Years Used Date Smoking Tobacco: Never Assessed Education Answer Date Recorded Are you interested in more education? Not on isrrael e 11/24/2022 Are you concerned about learning? Not on file 11/24/2022 No 11/24/2022 No 11/24/2022 Digital Access Answer Date Recorded No 12/21/2022 No 12/21/2022 Reliable internet access at home? Not on file 12/21/2022 Device with a working camera? Not on file Sex and Gender Information Value Date Recorded Sex Assigned at Male 09/20/2022 9:55 AM EST Legal Sex Male 9:53 AM EST Gender Identity Male 09/20/2022 9:55 AM EST Sexual Orientation Straight 09/20/2022 9: 55 AM EST Plan of Treatment Health Maintenance Due Date Last Done Comments Adult Td,Tdap Booster 1964 LIPID PANEL 1964 DEPRESSION SCREENING 1976 SMOKING Hx and SMOKELESS TOB ACCO SCREENING 1977 HEPATITIS C SCREENING 1982 HIV ONE-TIME SCREENING (18-6 5 YEARS) 1982 COLOGUARD 2009 COLONOSCOPY 2009 COLORECTAL CANCER SCREENING 2009 FIT TEST 2009 FOBT 2009 SIGMOIDOSCOPY 2009 VIRTUAL COLONOSCOPY 2009 PNEUMOCOCCAL VACCINES (50+ y ears) (1 of 1 - PCV) 2014 ZOSTER VACCINES (1 of 2) 2014 COVID-19 VACCINE ( - 2023-2 5 season) 2024 RSV VACCINE (1 - 1-dose 75+ series) 2039 HEPATITIS A VACCINES Aged Out No long er eligible based on patient's age to complete this topic HIB VACCINES Aged Out No longer eligi ble based on patient's age to complete this topic MENINGOCOCCAL VACCINES (ACWY) Aged Out No longer eligible based on patient's age to complete this topic MENINGOCOCCAL VACCINES (B) Aged Out N o longer eligible based on patient's age to complete this topic Medical Devices Not on file Insurance MEDICARE REPLACEMENT [employer] [id number] [facility] MEDICARE REPLACEMENT MEDICARE REPLACEMENT MEDICARE REPLACEMENT [facility] ONE CARE MEDICARE REPLACEMENT Care Teams Sample Maker Hand Relationship Specialty Start Date End Date Livia Ramesh MD PCP - General Internal Medicine 09/20/22 Additional Source Comments The information contained in this document represents components of the legal health record. It is not the complete legal health record.[facility]
== END 2025-02-28 08:35 | disposition home or self-care (01) ==
LOC: HO.MRI 08:34
PROVIDERS: PCP Internal Medicine; Visit Provider Internal Medicine Endocrinology, Diabetes & Metabolism
DX: D35.2 Benign neoplasm of pituitary gland (principal)
CPT/HCPCS: 70553; A9585

== ENCOUNTER 2025-04-19 09:10 | Outpatient (AMB) | payer OTHER, SELFPAY ==
--- NOTE | 2025-04-19 09:10 | MHC.OFFVIS ---
Intake Visit Reasons: BPH with difficulty urinating Intake Note: patient presents today for: new pt BPH, urinary difficulty urology medications: testosterone blood thinners: none labs done 11/26/24: t-testo 337, fr testo 55, PSA 0.32 today's PVR: 0mls Glass Decorator Required: Yes Accompanied by: Self / Same As Patient Allergies No Known Allergies (No Known Allergies*) Allergy (Verified 04/19/25 09:13) HPI Comments Details: Baljeet is a pleasant male. He is a patient of . He seen for the following urologic conditions - lower urinary tract symptoms Romanian translation provided in office by qualified medical imaging director Primarily obstructive symptoms Trial tamsulosin Three-month follow-up uroflow Hypogonadotropic Hypogonadism VICTORIA on CPAP Pituitary microadenoma diagnosed through endocrine On replacement AndroGel Background diabetes and long-term methadone use Osteopenia DEXA When off testosterone has low LH and low testosterone Encouraged to remain on testosterone Lower urinary tract symptoms Initial presentation with obstructive symptoms Weakness of stream Minimal nocturia or urge and frequency PFSH Medical History Osteopenia Goiter Pituitary microadenoma Hypogonadotropic hypogonadism Hypogonadism in male Vitamin D deficiency Hypogonadism Thrombocytopenia Osteoarthritis Myalgia Sleep apnea Colon polyps Hepatitis C VICTORIA (obstructive sleep apnea) COPD (chronic obstructive pulmonary disease) Surgical History Hx of carpal tunnel repair Family History Maternal Aunt Cancer Father Diabetes Paternal Aunt Diabetes Paternal Aunt Diabetes Social History Alcohol intake: former Patient Tobacco Use Status: Current everyday Tobacco user Cigarette Packs Per Day: 10 Years Smoked: 45 Substance Use Type: Prescription Drugs Current occupational status: unemployed Current occupation: rt handed Review of Systems Const Denies chills and Denies fever(s) Card Reports no additional complaints and Denies syncope Resp Denies cough GI Denies abdominal pain and Denies heartburn Reports as per HPI and Denies change in libido Neuro Denies syncope Psych Denies change in libido Endo Denies change in libido Physical Exam Const General: cooperative, healthy appearing, comfortable and no acute distress Orientation/consciousness: patient oriented x3 HEENT Face and sinus: Yes normal facial exam Mouth: moist mucous membranes Neck Neck: Yes normal visual inspection, Yes full ROM and Yes trachea midline Chest Chest palpation & inspection: normal inspection of the chest Resp Effort & Inspection: normal respiratory effort, able to speak in complete sentences and no respiratory distress GI Inspection: Yes normal to inspection Back/Spine/Pelvis Cervical Spine: normal cervical lordosis Thoracic/Lumbar Spine: thoracic and lumbar spine normal to inspection Skin General skin exam: no rashes or lesions noted Neuro General: patient oriented x3, gait normal, tone normal and moves all extremities Extrem General: Yes normal to inspection and Yes capillary refill normal Assessment & Plan Assessment & Plan (1) Weak urinary stream: Code(s): R39.12 - Poor urinary stream Category: Medical (2) Bladder outlet obstruction: Code(s): N32.0 - Bladder-neck obstruction Category: Medical Plan Three-month follow-up uroflow PVR Medications: New tamsulosin (Flomax) 0.4 mg PO BEDTIME 30 tabs 2RF 30 days N32.0 - Bladder-neck obstruction Patient Instructions: This note is constructed using voice recognition software. While every effort has been made to ensure accuracy b2b outside sales representative errors may have been included. Imaging studies, laboratory and physical exam results were discussed and reviewed in detail. No major barriers to patient understanding were identified. An opportunity to ask questions regarding the treatment plan was provided. All questions were answered. The patient expressed understanding and agreement with the above treatment plan. The patient is aware they should contact our office by phone for worsening of their current condition or the appearance of new urologic symptoms. Compliance is encouraged with any medications and followup testing that is ordered. It is a privilege to participate in the urologic care of your patient. If you have any questions or concerns regarding treatment for the above conditions, or other urologic issues, please do not hesitate to contact me. The office telephone contact is [phone]. Sincerely, Dr Armando Brooks MD, [facility] - Urology Compassionate Specialist Care for the Genitourinary System Coding Level of Care Code New Pt Level 4 (58962) Diagnoses Weak urinary stream R39.12 Bladder outlet obstruction N32.0
--- OUTSIDE RECORDS SUMMARY | 2025-04-19 09:53 | XMS_ITS | Encounter Summary ---
Author Organization [employer] Address [address] [place] [address] Care Team Providers Care Logistics Assistant Name Role Phone Livia Ramesh MD Primary Care Provider [phone] Encounter Details Date Type Department Care Team ([facility] Contact Info) Description 12/19/2024 Orders Only [facility] MED & PEDS [address], [place] [phone] Livia Ramesh MD [address], [place] [phone] Social History Tobacco Use Types Packs/Day Years Used Date Smoking Tobacco: Every Day Cigarettes 0.5 44 Passive Smoke Exposure: Never Smokeless Tobacco: Never Comments:Has resumed smoking Depression Answer Date Recorded Patient Health Questionnaire-9 Score 5 12/04/2024 Patient Health Questionnaire-9 Score 5 12/04/2024 Last PHQ-9: Questionnaire Data Not on file 0 12/04/2024 Housing Stability Answer Date Recorded What is your housing situation today? I have jared smith 12/04/[address] you li ve. Do you have problems with any of the following? None of the above 12/04/2024 Food Insecurity Answer Date Recorded Within the past 12 months, y ou worried that your food would run out before you got money to buy more: Never True 12/04/2024 Within the past 12 months,th e food you bought just didn't last and you didn't have enough money to get more: Never True Transportation Answer Date Recorded In the past 12 months, has l ack of transportation kept you from medical appts, meetings, work or from getting things needed for daily living? No 12/04/2024 Utilities Answer Date Recorded In the past 12 months, has t he electric, gas, oil or water company threatened to shut off services in your home? No 12/04/2024 Depression Answer Date Recorded Patient Health Questionnaire-2 Score 1 12/04/2024 Internet Access Answer Date Recorded Internet Access Q1 Yes 12/04/2024 Internet Access Q2 Not on file 12/04/2024 Sex and Gender Information Value Date Recorded Sex Assigned at Male 05/24/2022 10:18 AM EDT Legal Sex Male 10:18 AM EDT Gender Identity Male 05/24/2022 10:18 AM EDT Sexual Orientation Straight 05/24/2022 10 :18 AM EDT documented as of this encounter Plan of Treatment Upcoming Encounters Date Type Department Care Team ([facility] Contact Info) Description 05/02/2025 9:00 AM EDT Telemedicine [facility] MED & PEDS [address] [place] [address] Arina Saez PharmD [address] [place] [address] documented as of this encounter Visit Diagnoses Not on filedocumented in this encounter Additional Health Concerns Assessment Noted Time PHQ-9 Depression Total Score: 5 12/05/19 25 9:18 AM EDT documented as of this encounter Care Teams Logistics Assistant Relationship Specialty Start Date End Date Livia Ramesh MD [address] [place] [address] PCP - General Internal Medicine 07/25/18 [facility] 08/21/18 documented as of this encounter
--- OUTSIDE RECORDS SUMMARY | 2025-04-19 09:53 | XMS_ITS | Encounter Summary ---
Author Organization [employer] Address [address] [place] [address] Care Team Providers Care Machine Setter Sheet Metal Name Role Phone Livia Ramesh MD Primary Care Provider [phone] Reason for Visit * Reason Comments Med Refill Encounter Details Date Type Department Care Team ([facility] st Contact Info) Description 03/31/2025 Refill [facility] MED & PEDS [address], [place] [phone] Livia Ramesh MD [address], [place] [phone] Type 2 diabetes mellitus without complication, without long-term current use of insulin ([facility]) Social History Tobacco Use Types Packs/Day Years [...] Care Team (Late st Contact Info) Description 05/02/2025 9:00 AM EDT Telemedicine [facility] MED & PEDS [address] [place] [address] Arina Saez, PharmD [address] [place] [address] documented as of this encounter Visit Diagnoses Diagnosis Type 2 diabetes mellitus without complication, without long-term current use of insulin ([facility]) documented in this encounter Additional Health Concerns Assessment Noted Time PHQ-9 Depression Total Score: 5 12/05/19 25 9:18 AM EDT documented as of this encounter Care Teams Machine Setter Sheet Metal Relationship Specialty Start Date End Date Livia Ramesh MD [address] [place] [address] PCP - General Internal Medicine 07/25/18 [facility] 08/21/18 documented as of this encounter
--- OUTSIDE RECORDS SUMMARY | 2025-04-19 09:53 | XMS_ITS | Encounter Summary ---
Author Organization [employer] Address [address] [facility] 7t [place] [address] Care Team Providers Care Research Study Assistant Name Role Phone Livia Ramesh MD Primary Care Provider [phone] Encounter Details Date Type Department Care Team (Late st Contact Info) Description 07/22/2022 Orders Only [facility] MED & PEDS [address] [place] [address] Lisha John, RN [address] [place] [address] Social History Tobacco Use Types Packs/Day Years [...] Info) Description 05/02/2025 9:00 AM EDT Telemedicine [facility] MED & PEDS [address] [place] [address] Arina Saez, PharmD [address] [place], [place] [phone] documented as of this encounter Procedures Procedure [...] Testosterone, Total 23(A) 250 - 1100 ng/dL [facility] Comment:For additional infor suni, please refer tohttp://education.[employer]/faq/ZtbsoBrgmixyzzpphAUFUSVSRN966(This link is being provided for informational/educational purposes only.)This test was developed and its analytical performancecharacteristics have been determined by [employer] [place], [place]. It hasnot been cleared or approved by the U.S. Food and DrugAdministration. This assay has been validated pursuantto the CLIA regulations and is used for clinicalpurposes. Testosterone, Free 4.2(A) 35.0 - 155.0 pg/mL [facility] Comment:This test was develo ped and its analytical performancecharacteristics have been determined by [employer] [place], [place]. It hasnot been cleared or approved by the U.S. Food and DrugAdministration. This assay has been validated pursuantto the CLIA regulations and is used for clinicalpurposes.THIS TEST WAS PERFORMED AT:[employer]/[id number] [place] [address]GKTJGDHKENNEDY MEJIAS MD,PHD 09/20/2022 7:23 AM EST 09/20/2022 7:23 AM EST [facility] External Provider LAB BLO OD ORDERABLES Final Result [facility] [address] [place] [phone] * Sex Hormone Binding Globulin (SHBG) (09/20/2022 7:23 AM EST) Sex Hormone Binding Globulin 25 22 - 77 nmol/L [facility] Comment:THIS TEST WAS PERFOR MED AT:[employer] [address] [address]AQWLVJONG VOGEL MD 09/20/2022 7:23 AM EST 09/20/2022 7:23 AM EST [facility] External Provider LAB BLO OD ORDERABLES Final Result Performing Organization Address [facility] Phone Number [facility] [address] [place] [phone] * PSA,Total (09/20/2022 7:23 AM EST) Prostate Specific Antigen 0.14 <0.05 - 4.0 ng/mL [facility] Comment:PSA methodology: Abb katlyn Alibarryty i ChemiluminescentMicroparticle Immunoassay (CMIA) 09/20/2022 7:23 AM EST 09/20/2022 7:23 AM EST [facility] External Provider LAB BLO OD ORDERABLES Final Result Performing Organization Address [facility] Number [facility] [address] [place] [phone] * (ABNORMAL) Hematocrit (09/20/2022 7:23 AM EST) Hematocrit 41.9(L) 42.0 - 52.0 % [facility] 09/20/2022 7:23 AM EST 09/20/2022 7:23 AM EST [facility] External Provider LAB BLO OD ORDERABLES Final Result Performing Organization Address [facility] de Phone Number [facility] [address] [place] [phone] * (ABNORMAL) Hemoglobin (09/20/2022 7:23 AM EST) Hemoglobin 13.6(L) 14.0 - 18.0 g/dl [facility] 09/20/2022 7:23 AM EST 09/20/2022 7:23 AM EST [facility] External Provider LAB BLO OD ORDERABLES Final Result Performing Organization Address City/[facility]/ZIP Co de Phone Number [facility] [address] [place] [address] [phone] * (ABNORMAL) Testosterone, Free (Dialysis) And Total, MS (08/19/2022 7:17 AM EST) Pathologist [facility] Testosterone, Total 37(A) 250 - 1100 ng/dL [facility] Comment:For additional infor suni, please refer tohttp://education.[employer]/faq/GbijfQmffxcrefrocGIASOXPSI568(This link is being provided for informational/educational purposes only.)This test was developed and its analytical performancecharacteristics have been determined by [employer] [place], [place]. It hasnot been cleared or approved by the U.S. Food and DrugAdministration. This assay has been validated pursuantto the CLIA regulations and is used for clinicalpurposes. Testosterone, Free 5.6(A) 35.0 - 155.0 pg/mL [facility] Comment:This test was develo ped and its analytical performancecharacteristics have been determined by [employer] [place]. It hasnot been cleared or approved by the U.S. Food and DrugAdministration. This assay has been validated pursuantto the CLIA regulations and is used for clinicalpurposes.THIS TEST WAS PERFORMED AT:[employer]/[id number] [place] [address]FNRGEDFKENNEDY MEJIAS MD,PHD 08/19/2022 7:17 AM EST 08/19/2022 7:17 AM EST us [facility] External Provider LAB BLO OD ORDERABLES Final Result Performing Organization Address City/[facility]/ZIP Co de Phone Number [facility] [address] [place] [address] [phone] * IGF-1, LC/MS (08/19/2022 7:17 AM EST) [facility] IGF 1, LC/MS 91 50 - 317 ng/mL [facility] Z Score (Male) -0.8 -2.0 - 2.0 SD [facility] Comment:This test was develo ped and its analytical performancecharacteristics have been determined by [facility]. It has not beencleared or approved by FDA. This assay has been validatedpursuant to the CLIA regulations and is used for clinicalpurposes.THIS TEST WAS PERFORMED AT:[employer] [id number] [place] [address]THXILROB DUGGAN MD,PHD,LENO Z Score (Female) [facility] 08/19/2022 7:1 7 AM EST 08/19/2022 7:17 AM EST [facility] External Provider LAB BLO OD ORDERABLES Final Result [facility] [address] [place] [phone] * Prolactin, Dilution Study (08/19/2022 7:17 AM EST) [facility] Prolactin, Undiluted 6.7 2.0 - 18.0 ng/mL [facility] Prolactin, Diluted SEE NOTE 2.0 - 18.0 ng/mL [facility] Comment:Result confirmed by 1:100 dilution. No high dosehook effect detected.Prolactin dilution studies are done to determine ifthere is a high-dose hook effect (i.e. a non-linearassay response due to a very high concentration ofProlactin). This is reported to occur at Prolactinconcentrations at or above 30,000 ng/mL.This test is not recommended for identifyingmacroprolactin. The [employer] [facility], Prolactin, Total and Monomeric is therecommended test (Order code [id number]).THIS TEST WAS PERFORMED AT:[employer] [address] ([address])[place] [address]XGZVJJONG VOGEL MD 08/19/2022 7:17 AM EST 08/19/2022 7:17 AM EST [facility] External Provider LAB BLO OD ORDERABLES Final Result Performing Organization Address [facility] Co de Phone Number [facility] [address] [place] [phone] * (ABNORMAL) LH (08/19/2022 7:17 AM EST) Lutenizing Hormone 0.6(A) 1.5 - 9.3 mIU/mL [facility] Comment:THIS TEST WAS PERFOR MED AT:[employer] [place] [address])[place] [address]ZSLIIJONG VOGEL MD 08/19/2022 7:17 AM EST 08/19/2022 7:17 AM EST [facility] External Provider LAB BLO OD ORDERABLES Final Result Performing Organization Address [facility] Phone Number [facility] [address] [place] [phone] * FSH (08/19/2022 7:17 AM EST) Follicle Stimulating Hormone 3.4 1.6 - 8.0 mIU/mL [facility] Comment:THIS TEST WAS PERFOR MED AT:[employer] [address] ([facility] [address]IKAIEJONG VOGEL MD 08/19/2022 7:17 AM EST 08/19/2022 7:17 AM EST [facility] External Provider LAB BLO OD ORDERABLES Final Result Performing Organization Address [facility] Co de Phone Number [facility] [address] [place] [phone] * Sex Hormone Binding Globulin (SHBG) (08/19/2022 7:17 AM EST) Sex Hormone Binding Globulin 28 22 - 77 nmol/L [facility] Comment:THIS TEST WAS PERFOR MED AT:[employer] [address] ([address])[place] [address]VWVYHJILLIAN VOGEL MD 08/19/2022 7:17 AM EST 08/19/2022 7:17 AM EST [facility] External Provider LAB BLO OD ORDERABLES Final Result Performing Organization Address City/[facility]/ZIP Co de Phone Number [facility] [address] [place] [address] [phone] * T3, Total (08/19/2022 7:17 AM EST) Pathologist [facility] T3, Total 99 76 - 181 ng/dL [facility] Comment:THIS TEST WAS PERFOR MED AT:[employer] [address] ([address])[place] [address]LUCJNJONG VOGEL MD 08/19/2022 7:17 AM EST 08/19/2022 7:17 AM EST [facility] External Provider LAB BLO OD ORDERABLES Final Result Performing Organization Address City/[facility]/ZIP Co de Phone Number [facility] [address] [place] [address] [phone] * ACTH, Plasma (08/19/2022 7:17 AM EST) Pathologist [facility] ACTH, Plasma 32 6 - 50 pg/mL [facility] Comment:Reference range appl ies only to specimenscollected between 7am-10amTHIS TEST WAS PERFORMED AT:[employer] [address] ([facility] [address]GHMZIJILLIAN VOGEL MD 08/19/2022 7:17 AM EST 08/19/2022 7:17 AM EST [facility] External Provider LAB BLO OD ORDERABLES Final Result Performing Organization Address [facility]/ZIP Co de Phone Number [facility] [address] [place] [phone] * Osmolality, Serum (08/19/2022 7:17 AM EST) Osmolality (Serum) 293 281 - 305 mosm/kg [facility] 08/19/2022 7:17 AM EST 08/19/2022 7:17 AM EST [facility] External Provider LAB BLO OD ORDERABLES Final Result Performing Organization Address [facility] de Phone Number [facility] [address] [place] [phone] * Cortisol Random (08/19/2022 7:17 AM EST) Pathologist [facility] Cortisol Random 16.3 ug/dL [facility] Comment:Reference Range*: Be fore 10 am 6.2-19.4 ug/dL After 5 pm 2.3-11.9 ug/dL*Please interpret above results accordingly.This test was performed using the [employer] chemiluminescentmethod. Values obtained from different assay methods cannotbe used interchangeably.Patients receiving fludrocortisone, prednisolone orprednisone may show artificially elevated cortisol valuesdue to cross-reactivity. 08/19/2022 7:17 AM EST 08/19/2022 7:17 AM EST [facility] External Provider LAB BLO OD ORDERABLES Final Result Performing Organization Address [facility] Co de Phone Number [facility] [address] [place] [phone] * TSH (08/19/2022 7:17 AM EST) Thyroid Stimulating Hormone 1.67 0.32 - 4.0 uIU/mL [facility] Comment:TSH 3rd Generation ( [facility]) 08/19/2022 7:17 AM EST 08/19/2022 7:17 AM EST [facility] External Provider LAB BLO OD ORDERABLES Final Result Performing Organization Address [facility] Co de Phone Number [facility] [address] [place] [phone] * (ABNORMAL) T4, Free (08/19/2022 7:17 AM EST) Free T4 (Free Thyroxine) 2.06(H) 0.71 - 1.85 ng/dL [facility] 08/19/2022 7:17 AM EST 08/19/2022 7:17 AM EST [facility] External Provider LAB BLO OD ORDERABLES Final Result Performing Organization Address [facility] Phone Number [facility] [address] [place] [phone] [phone] * (ABNORMAL) Basic Metabolic Panel (08/19/2022 7:17 AM EST) Pathologist [facility] Sodium 140 135 - 145 mmol/L [facility] Potassium 4.1 3.3 - 5.1 mmol/L [facility] Chloride 103 96 - 108 mmol/L [facility] Carbon Dioxide 26 22 - 29 mmol/L [facility] Anion Gap 15 12 - 20 [facility] Urea Nitrogen (BUN) 17(H) 9 - 16 mg/dL [facility] Creatinine, Serum 0.85 0.5 - 1.4 mg/dL [facility] Estimated Glomerular Filt Rate >60 [facility] Comment:NOTE: For -Am erican individuals, multiply the result by 1.210.Chronic Kidney Disease: Estimated GFR < 60 mL/min/1.42m5Ivghge Kidney Disease: Estimated GFR < 15 mL/min/1.73m2 Glucose 114 60 - 115 mg/dL [facility] Calcium 9.1 8.4 - 10.2 mg/dL [facility] 08/19/2022 7:17 AM EST 08/19/2022 7:17 AM EST us [facility] External Provider LAB BLO OD ORDERABLES Final Result [facility] [address] [place] [phone] documented in this encounter Visit Diagnoses Not on filedocumented in this encounter Care Teams Research Study Assistant Relationship Specialty Start Date End Date Livia Ramesh MD [address] [place] [phone] PCP - General Internal Medicine 07/25/18 [facility] 08/21/18 documented as of this encounter
--- OUTSIDE RECORDS SUMMARY | 2025-04-19 09:53 | XMS_ITS | Encounter Summary ---
Author Organization [employer] Address [address] [facility] 7t [place] [address] Care Team Providers Care Wine Cellar Worker Name Role Phone Livia Ramesh MD Primary Care Provider [phone] Reason for Visit * Reason Comments Med Refill Encounter Details Date Type Department Care Team ([facility] st Contact Info) Description 08/15/2024 Refill [facility] MED & PEDS [address] [place], [place] [phone] Livia Ramesh MD [address] [place], [place] [phone] Type 2 diabetes mellitus without complication, without long-term current use of insulin ([facility]) Social History Tobacco Use Types Packs/Day [...] Upcoming Encounters Date Type Department Care Team ([facility] st Contact Info) Description 05/02/2025 9:00 AM EDT Telemedicine [facility] MED & PEDS [address] [place], [place] [phone] Arina Saez, PharmD [address] [place] [address] documented as of this encounter Visit Diagnoses Diagnosis Type 2 diabetes mellitus without complication, without long-term current use of insulin ([facility]) documented in this encounter Additional Health Concerns Assessment Noted Time PHQ-9 Depression Total Score: 1 05/18/20 23 9:54 AM EDT documented as of this encounter Care Teams Wine Cellar Worker Relationship Specialty Start Date End Date Livia Ramesh MD [address] [place] [address] PCP - General Internal Medicine 07/25/18 [facility] 08/21/18 documented as of this encounter
--- OUTSIDE RECORDS SUMMARY | 2025-04-19 09:53 | XMS_ITS | Encounter Summary ---
Author Organization [employer] Address [address] [place] [address] [address] [phone] Care Team Providers Care Vp Scientific Affairs Name Role Phone Livia Ramesh MD Primary Care Provider [phone] Encounter Details Date Type Department Care Team (Late st Contact Info) Description 03/22/2023 Orders Only [facility] MED & PEDS [address] [place] [address] Katelyn Mckenzie LPN Social History Tobacco Use [...] Info) Description 05/02/2025 9:00 AM EDT Telemedicine [facility] MED & PEDS [address] [place] [address] Arina Saez, PharmD [address] [place] [address] documented as of this encounter Visit Diagnoses Not on filedocumented in this encounter Care Teams Vp Scientific Affairs Relationship Specialty Start Date End Date Livia Ramesh MD [address] [place] [address] PCP - General Internal Medicine 07/25/18 [facility] 08/21/18 documented as of this encounter
--- OUTSIDE RECORDS SUMMARY | 2025-04-19 09:53 | XMS_ITS | Encounter Summary ---
Author Organization [employer] Address [address] [facility] 7t [place] [address] Care Team Providers Care Tea Bag Packer Name Role Phone Livia Ramesh MD Primary Care Provider [phone] Encounter Details Date Type Department Care Team ([facility] st Contact Info) Description 08/18/2023 Orders Only [facility] MED & PEDS [address] [place], [place] [phone] Livia Ramesh MD [address] [place], [place] [phone] Social History Tobacco Use Types Packs/Day Years [...] Info) Description 05/02/2025 9:00 AM EDT Telemedicine [facility] MED & PEDS [address] [place] [address] Arina Saez, PharmD [address] [place] [address] documented as of this encounter Visit Diagnoses Not on filedocumented in this encounter Additional Health Concerns Assessment Noted Time PHQ-9 Depression Total Score: 1 05/18/20 23 9:54 AM EDT documented as of this encounter Care Teams Tea Bag Packer Relationship Specialty Start Date End Date Livia Ramesh MD [address] [place] [address] PCP - General Internal Medicine 07/25/18 [facility] 08/21/18 documented as of this encounter
--- OUTSIDE RECORDS SUMMARY | 2025-04-19 09:53 | XMS_ITS | Encounter Summary ---
Author Organization [employer] Address [address] [facility] [address] [place] [address] Care Team Providers Care Novelty Balloon Assembler And Packer Name Role Phone Livia Ramesh MD Primary Care Provider [phone] Encounter Details Date Type Department Care Team (Late st Contact Info) Description 05/27/[address] [facility] MEDICINE [address] [place] [address] Livia Ramesh MD [address] [place], [place] [phone] Social History Tobacco Use Types Packs/Day Years [...] Info) Description 05/02/2025 9:[address] [facility] MED & PEDS [address] [place], [place] [phone] Arina Saez PharmD [address] [place], [place] [phone] documented as of this encounter Procedures Procedure Name Priority Date/Time Associated Diagnosis Comments HM COLONOSCOPY Routine 05/31/2022 documented in this encounter [...] documented as of this encounter Care Teams Novelty Balloon Assembler And Packer Relationship Specialty Start Date End Date Livia Ramesh MD [address] [place], [place] [phone] PCP - General Internal Medicine 07/25/18 [facility] 08/21/18 documented as of this encounter
--- OUTSIDE RECORDS SUMMARY | 2025-04-19 09:53 | XMS_ITS | Encounter Summary ---
Author Organization [employer] Address [address] [facility] [address] [place] [address] Care Team Providers Care Professional Development Instructor Name Role Phone Livia Ramesh MD Primary Care Provider Encounter Details Date Type Department Care Team (Late st Contact Info) Description 10/08/2024 Orders Only [facility] MEDICINE [address] [place] [address] Livia Ramesh MD [address] [place], [place] [phone] Obesity (BMI 30-39.9) (Primary Dx) Social History [...] Upcoming Encounters Date Type Department Care Team ([facility] st Contact Info) Description 05/02/2025 9:00 AM EDT Telemedicine [facility] MED & PEDS [address] [place] [address] Arina Saez, PharmD [address] [place], [place] [phone] documented as of this encounter Visit Diagnoses Diagnosis Obesity (BMI 30-39.9)- Primary documented in this encounter Additional Health Concerns Assessment Noted Time PHQ-9 Depression Total Score: 1 05/18/20 23 9:54 AM EDT documented as of this encounter Care Teams Professional Development Instructor Relationship Specialty Start Date End Date Livia Ramesh MD [address] [place] [address] PCP - General Internal Medicine 07/25/18 [facility] 08/21/18 documented as of this encounter
--- OUTSIDE RECORDS SUMMARY | 2025-04-19 09:53 | XMS_ITS | Encounter Summary ---
Author Organization [employer] Address [address] [facility] 7t [place] [address] Care Team Providers Care Flat Bed Operator Name Role Phone Livia Ramesh MD Primary Care Provider [phone]- [phone] Reason for Visit * Reason Comments Med Refill Encounter Details Date Type Department Care Team ([facility] st Contact Info) Description 03/30/2025 Refill [facility] MED & PEDS [address] [place], [place] [phone] Livia Ramesh MD [address] [place], [place] [phone] Primary hypertension; Primary osteoarthritis of other site; Pain of toes of both feet Social History Tobacco Use Types Packs/Day Years [...] Info) Description 05/02/2025 9:00 AM EDT Telemedicine [facility] MED & PEDS [address] [place] [address] Arina Saez, PharmD [address] [place] [address] documented as of this encounter Visit Diagnoses Diagnosis Primary hypertension Unspecified essential hypertension Primary osteoarthritis of other site Pain of toes of both feet documented in this encounter Additional Health Concerns Assessment Noted Time PHQ-9 Depression Total Score: 5 12/05/19 25 9:18 AM EDT documented as of this encounter Care Teams Flat Bed Operator Relationship Specialty Start Date End Date Livia Ramesh MD [address] [place] [address] PCP - General Internal Medicine 07/25/18 [facility] 08/21/18 documented as of this encounter
--- OUTSIDE RECORDS SUMMARY | 2025-04-19 09:54 | XMS_ITS | Encounter Summary ---
Author Organization [employer] Address [address] [place] [address] Care Team Providers Care Computer Support Specialist Name Role Phone Livia Ramesh MD Primary Care Provider [phone] Encounter Details Date Type Department Care Team (Late st Contact Info) Description 05/28/2024 Orders Only [facility] MED & PEDS [address] [place], [place] [id number] Provider, MD Kirti Social History Tobacco Use Types Packs/Day Years [...] Info) Description 05/02/2025 9:00 AM EDT Telemedicine [facility] MED & PEDS [address] [place] [address] Arina Saez PharmD [address] [place] [address] documented as of this encounter Procedures Procedure [...] PM EST Narrative 08/06/2024 2:43 PM EST [facility] [address] [place] [address] Magnetic Resonance Report Signed Patient: Baljeet Coronel MR#: [id number] 833 : 1965 Acct:[id number] Age/Sex: 59 / M ADM Date: 06/16/24 Loc: HO.MRI Attending Dr: Grey Tinajero MD Ordering Physician: Grey Tinajero MD Date of Service: 06/16/24 Procedure(s): MR head/brain wo/w con Accession Number(s): [id number] cc: Livia Ramesh MD; Grey Tinajero MD [...] by: Mendez Lara MD 08/06/2024 02:40 PM [facility] Dictated By: MENDEZ LARA MD Signed By: <Electronically signed by MENDEZ LARA MD in OV> 08/06/24 1440 DD/ 1309 TD/TT: 06/16/24 1430 Shut Off Worker: Procedure Note Donotuseinterpreter, Image - 08/06/[address] [address] Magnetic Resonance Report Signed Patient: Ila Coronel#: [id number] 833 : 1965Acct:[id number] Age/Sex: 59 / MADM Date: 06/16/24 Loc: HO.MRI Attending Dr: Grey Tinajero MD Ordering Physician: Grey Tinajero MD Date of Service: 06/16/24 Procedure(s): MR head/brain wo/w con Accession Number(s): [id number] cc: Livia Ramesh MD; Grey Tinajero MD [...] 08/06/24 1440 DD/ 1309 TD/TT: 06/16/24 1430 Shut Off Worker: [facility] External Provider IMG MRI PROCEDURES Final [...] documented as of this encounter Care Teams Computer Support Specialist Relationship Specialty Start Date End Date Livia Ramesh MD [address] [place] [id number] PCP - General Internal Medicine 07/25/18 Home [facility] 08/21/18 documented as of this encounter
--- OUTSIDE RECORDS SUMMARY | 2025-04-19 09:54 | XMS_ITS | Clinical Summary ---
Author Organization [facility] Address [address] [place] [address] Phone Care Team Providers Care Verifying Specialist Name Role Phone Livia Ramesh MD [...] 2014 ZOSTER VACCINES (1 of 2) 2014 INFLUENZA VACCINE (#1) 2025 COVID-19 VACCINE (1 - 2023-2 5 season) 2025 RSV VACCINE (1 - 1-dose 75+ series) [...] topic Medical Devices Not on file Insurance [employer] [id number] [facility] MEDICARE REPLACEMENT MEDICARE REPLACEMENT [facility] ONE CARE MEDICARE REPLACEMENT Care Teams Verifying Specialist Relationship Specialty Start Date End Date Livia Ramesh MD PCP - General Internal Medicine 09/20/22 Additional Source Comments The information contained in this document represents components of the legal health record. It is not the complete legal health record.[facility]
--- OUTSIDE RECORDS SUMMARY | 2025-04-19 09:54 | XMS_ITS | Clinical Summary ---
Author Organization [employer] Address [address] [place] [address] Care Team Providers Care P[employer] Name Role Phone Livia Ramesh MD Primary Care Provider [phone] Allergies No known active allergies Medications * [...] HFA) 17 MCG/ACT inhaler Inhale. 010 Active Combivent Respimat 20-100 MCG/ACT inhaler INHALE 1 PUFF BY MOUTH FOUR TIMES DAILY 4 g 3 024 Active celecoxib (CeleBREX) 200 MG capsuleIndication s:Primary osteoarthritis involving multiple joints TAKE 1 CAPSULE BY MOUTH TWICE DAILY 60 capsule 1 024 Active albuterol 108 (90 Base) MCG/ACT inhalerIndication s:COPD mixed type (CMS/HCC) INHALE 2 PUFFS BY MOUTH EVERY 4 HOURS NEEDED FOR WHEEZING 8.5 g 3 024 Active glucose blood (OneTouch Ultra) test strip USE DIRECTED TWICE DAILY 100 strip 11 024 Active metFORMIN (Glucophage) 500 MG tabletIndications :Type 2 diabetes mellitus without complication, without long-term current use of insulin (CMS/HCC) TAKE 1 TABLET BY MOUTH WITH BREAKFAST AND EVENING MEAL 60 tablet Active ipratropium-albut rui (Combivent Respimat) 20-100 MCG/ACT inhalerIndication s:COPD mixed type (CMS/HCC) Inhale 1 puff in the morning, at noon, in the evening, and at bedtime. 4 g 2025 Active Blood Glucose Monitoring Suppl (SavveoStyle Rarden Lite) w/Device kitIndications:Ty pe 2 diabetes mellitus without complication, without long-term current use of insulin (CMS/HCC) Use to test blood sugar 1 times daily 1 kit Active lisinopril 5 MG tabletIndications :Primary hypertension Take 1 tablet (5 mg) by mouth Once per day. 30 tablet 2025 Active omeprazole (PriLOSEC) [address] capsule TAKE 1 CAPSULE BY MOUTH TWICE DAILY 30 MINUTES TO 1 HOUR BEFORE A MEAL 180 capsule Active topiramate (Topamax) 25 MG tabletIndications :Obesity (BMI 30-39.9) Take 1 tablet (25 mg) by mouth every 12 (twelve) hours. 60 tablet 2025 Active diclofenac (Voltaren) 75 MG EC tabletIndications :Localized osteoarthritis of right shoulder Take 1 tablet (75 mg) by mouth 2 times daily. Do not crush, chew, or split. 60 tablet 2025 Active phentermine 15 MG capsuleIndication s:Obesity (BMI 30-39.9) TAKE 1 CAPSULE(15 MG) BY MOUTH BEFORE BREAKFAST 30 capsule Active gabapentin (Neurontin) 400 MG capsuleIndication s:Chronic pain syndrome Take 1 capsule (400 mg) by mouth 3 times daily. 90 capsule 025 2025 Active albuterol (2.5 MG/3ML) 0.083% nebulizer solutionIndicatio ns:COPD mixed type (CMS/HCC) Take 3 mL (2.5 mg) by nebulization every 4 (four) hours if needed for wheezing. 75 mL 025 2025 Active buPROPion SR (Wellbutrin SR) 150 MG 12 hr tablet Take 150 mg by mouth 2 times daily. Active testosterone (Androgel) 50 MG/5GM (1%) gel APPLY 1 PACK TOPICALLY ONCE DAILY Active traZODone (Desyrel) 150 MG tablet TAKE 2 TABLETS BY MOUTH AT BEDTIME NEEDED FOR SLEEP Active nicotine (Nicoderm CQ) 14 MG/24HR patchIndications: Tobacco dependence syndrome Place 1 patch on the skin 1 (one) time each day at the same time. Use for 4-6 weeks then decrease to 7mg patches 42 patch 1 025 Active nicotine (Nicoderm CQ) 7 MG/24HR patchIndications: Tobacco dependence syndrome Place 1 patch on the skin 1 (one) time each day at the same time. 30 patch 1 025 Active nicotine polacrilex (Nicorette) 4 MG gumIndications:To bacco dependence syndrome Chew 1 each (4 mg) if needed for smoking cessation. Max 24 per day 100 each 3 025 Active nicotine (Nicoderm CQ) 7 MG/24HR patchIndications: Smoking Place 1 patch on the skin 1 (one) time each day at the same time. 30 patch 023 2024 Discontinued(M ed list cleanup (will not trigger notification to Pharmacy)) varenicline (Chantix) 0.5 MG tabletIndications :Tobacco dependence syndrome Take 1 tablet (0.5 mg) by mouth 2 times daily. Take with full glass of water.Days 1 to 3: 0.5 mg once daily. Days 4 to 7: 0.5 mg twice daily. 11 tablet 1 024 2024 Discontinued(S john effects) varenicline (Chantix) 1 MG tabletIndications :Tobacco dependence syndrome TAKE 1 TABLET(1 MG) BY MOUTH TWICE DAILY WITH FULL GLASS OF WATER 60 tablet 3 025 2024 Discontinued varenicline (Chantix) 1 MG tabletIndications :Tobacco dependence syndrome TAKE 1 TABLET(1 MG) BY MOUTH TWICE DAILY WITH FULL GLASS OF WATER 60 tablet 3 025 2024 Discontinued(S john effects) Active Problems Problem Noted Date Diagnosed Date [...] organization. Date Type Department Care Team Description 04/10/2025 9:00 AM EDT Telemedicine [facility] MED & PEDS [address] [place] [address] Arina Saez PharmD Tobacco dependence syndrome (Primary Dx) 04/09/2025 Refill [facility] [address] [place] [address] Livia Ramesh MD Tobacco dependence syndrome 03/31/2025 Refill [facility] [address] [place] [address] Livia Ramesh MD Type 2 diabetes mellitus without complication, without long-term current use of insulin ([facility]/HCC) 03/30/2025 Refill [facility] [address] [place] [address] Livia Ramesh MD Primary hypertension; Primary osteoarthritis of other site; Pain of toes of both feet 03/07/2025 9:15 AM EDT Office Visit [facility] [address] [place] [address] Livia Ramesh MD Type 2 diabetes mellitus without complication, without long-term current use of insulin (CMS/HCC) (Primary Dx); Disturbance of memory; Tobacco dependence syndrome; Chronic left shoulder pain; Chronic pain syndrome; COPD mixed type (CMS/[facility]) 03/07/2025 Travel 02/28/2025 Orders Only [facility] External Provider, [facility] 02/12/2025 Refill [facility] MED & PEDS [address] [place] [address] Livia Ramesh MD Primary osteoarthritis of other site; Diabetic polyneuropathy associated with type 2 diabetes mellitus ([facility]) 01/18/2025 Refill [facility] PEDS [address] [place] [address] Livia Ramesh MD Obesity (BMI 30-39.9) from Last 3 Months Immunizations Immunization Administration Dates Next Due Influenza injectable quadriv [...] Sign Reading Time Taken Comments Blood Pressure 138/88 03/07/2025 9:55 AM EDT Pulse 69 03/07/2025 9:18 AM EDT Temperature 36.6 C (97.8 F) 03/07/2025 9:18 AM EDT Respiratory Rate 20 03/07/2025 9:18 AM EDT Oxygen Saturation 99% 03/07/2025 9:18 AM EDT Inhaled Oxygen Concentration - - Weight 96.6 kg (213 lb) 03/07/2025 9:18 AM EDT Height 170.2 cm (5' 7 ) 03/07/2025 9:18 AM EDT Body Mass Index 33.36 03/07/2025 9:18 AM EDT Plan of Treatment Upcoming Encounters Date Type Department Care Team (Late st Contact Info) Description 05/02/2025 9:00 AM EDT Telemedicine [facility] [address] [place] [address] Arina Saez, PharmD [address] [place] [address] Health Maintenance Due Date Last Done Comments CT Colonography 1965 FIT DNA/Cologuard 1965 FIT 1965 FOBT 1965 HIV Screening 1965 Sigmoidoscopy 1965 Disability Screening 1965 Eye Exam 1974 Hepatitis A Vaccines (1 of 2 - Risk 2-dose series) 1983 Zoster Vaccines (1 of 2) 2014 Lipid Panel 11/26/2021 11/26/2020, 11/26/2020 Hepatitis B Vaccines (1 of 3 - Risk 3-dose series) 2024 RSV Patients and Patients Aged 60 years or older (1 - Risk 60-74 years 1-dose series) 2024 Diabetes: Foot Exam 08/18/2024 08/18/2023, 08/18/2023, 08/18/2023, Additional history exists Diabetes: Urine Protein Screening 02/05/2025 02/06/2024 COVID-19 Vaccine ( season) 2025 09/02/2023, 07/15/2022, 08/05/2021, Additional history exists Influenza Vaccine (#1) 2025 , 06/15/2019, 05/23/2017, Additional history exists Colonoscopy 05/31/2025 05/31/2022 Colorectal Cancer Screening 05/31/2025 Lung Cancer Screening 06/18/2025 06/18/2024 Diabetes: Hemoglobin A1C 09/07/2025 025, 12/04/2024, 09/06/2024, Additional history exists Alcohol/Substance Use Screening 12/04/2025 12/04/2024 Depression Screening 12/04/2025 12/04/2024, 12/05/19 25 SDOH Screening 12/04/2025 12/04/2024 Tobacco Screening 12/04/2025 12/04/2024 DTaP/Tdap/Td Vaccines (3 - Td or Tdap) [...] patient's age to complete this topic Meningococcal B Vaccine Aged Out No l onger eligible based on patient's age to complete [...] Date/Time Associated Diagnosis Comments POCT GLUCOSE Routine 03/07/2025 9:45 AM EDT Type 2 diabetes mellitus without complication, without long-term current use of insulin ([facility]) POCT GLYCATED HEMOGLOBIN, TOTAL Routine 03/07/2025 9:44 AM EDT Type 2 diabetes mellitus without complication, without long-term current use of insulin ([facility]) MR BRAIN W AND WO CONTRAST Routine 02/28/2025 8:50 AM EDT LDCT LUNG SCREENING Routine 06/18/2024 Tobacco dependence syndrome ALBUMIN, RANDOM URINE W/CREATININE Routine 02/06/2024 10:30 AM EDT Type 2 diabetes mellitus without complication, without long-term current use of insulin ([facility]) HM COLONOSCOPY Routine 05/31/2022 ZZZ HISTORICAL LIPID PANEL Routine 11/26/2020 8:33 AM EDT from Last 3 Months or Most Recently Relevant to Health Maintenance Results * POCT Glucose (03/07/2025 9:45 AM EDT) [facility] Glucose Blood, POC 153 60 - 200 mg/dL QC Media Lot # [id number] Lot# Expiration Date [id number] Comment:random Blood Capillary blood specimen / Unknown 03/07/2025 9:45 AM EDT Livia Ramesh MD POINT OF CARE TEST ENTER/ED IT ORDERABLES Final Result * (ABNORMAL) POCT HGB A1C (03/07/2025 9:44 AM EDT) Hemoglobin A1C 6.0(A) 4.0 - 5.7 % QC Media Lot # [id number] Lot# Expiration Date Blood 03/07/2025 9:44 AM EDT Livia Ramesh MD POINT OF CARE TEST ENTER/ED IT ORDERABLES Final Result * Mr Brain w/ and w/o Contrast (02/28/2025 8:50 AM EDT) Anatomical Region Laterality Modality Brain Magnetic Resonan ce 02/28/2025 8:50 AM EDT Narrative 02/28/2025 9:58 AM EDT [place] [address] Magnetic Resonance Report Signed Patient: Baljeet Coronel MR#: [id number] 833 : 1965 Acct:[id number] Age/Sex: 59 / M ADM Date: 02/28/25 Loc: HO.MRI Attending Dr: Grey Tinajero MD Ordering Physician: Grey Tinajero MD Date of Service: 02/28/25 Procedure(s): MR head/brain wo/w con Accession Number(s): [id number] cc: Livia Ramesh MD; Grey Tinajero MD EXAMINATION: MR BRAIN AND SELLA WITHOUT AND WITH CONTRAST CLINICAL INFORMATION: Follow-up benign neoplasm pituitary gland. COMPARISON: 06/16/2024, 02/03/2023. TECHNIQUE: Multiplanar, multisequence MRI of the brain and sella was obtained before and after the intravenous administration of 5 mL Gadavist. Examination performed on a 1.5 Sveta Siemens high-field unit. FINDINGS: SELLA: Redemonstration of a hypoenhancing lesion in the anterior aspect of the pituitary gland, measuring 0.5 x 0.8 x 0.6 cm, (AP, TRV, CC), essentially unchanged in size compared with the prior examination where it measured 0.6 x 0.8 x 0.7 cm, respectively. There is no suprasellar extension or mass effect upon the suprasellar structures or optic apparatus. There is no invasion of the cavernous sinuses. There are maintained normal signal voids in the carotid siphons without evidence of carotid encasement. The infundibulum is slightly right deviated, normal in thickness, and enhances normally. BRAIN: There is no diffusion restriction. There is no intracranial hemorrhage, acute infarction, mass effect, or edema. Ventricles, sulci, and cisterns are normal in size and configuration for patient age. No shift of midline. No abnormal hemosiderin deposition is identified. There are a few scattered punctate foci of white matter T2 hyperintensity in the periventricular, subcortical, and hemispheric deep white matter. These foci are nonspecific but statistically most likely relate to small vessel ischemic changes. Midline structures appear normally formed. The pituitary gland appears normal. Posterior fossa structures appear normal. Cerebellar tonsils are appropriately located. Major flow voids are preserved within the skull base. The globes and orbital contents demonstrate no abnormalities. Paranasal sinuses are clear bilaterally. The mastoids and tympanic cavities are normally aerated. Extracranial soft tissues demonstrate no abnormalities. No suspicious bone marrow changes are evident. Atlantoaxial joint demonstrates mild to moderate degenerative change. MR/MR head/brain wo/w con IMPRESSION: 1. Essentially unchanged pituitary microadenoma within the anterior aspect of the gland as described. 2. No evidence of intracranial hemorrhage, acute infarction, mass effect, or edema. No abnormal intra or extra-axial enhancement identified. 3. Stable minimal changes of small vessel ischemia. Electronically signed by: Leobardo Montano MD 02/28/2025 09:54 AM EDT Dictated By: Leobardo Montano MD Signed By: <Electronically signed by Leobardo Montano MD in OV> 02/28/25 0954 DD/ 0850 TD/TT: 02/28/25 0920 Offshoring Manager: Procedure Note Donotuseinterpreter, Image - 02/28/[address] [address] Magnetic Resonance Report Signed Patient: Ila Coronel#: [id number] 833 : 1965Acct:[id number] Age/Sex: 59 / MADM Date: 02/28/25 Loc: HO.MRI Attending Dr: Grey Tinajero MD Ordering Physician: Grey Tinajero MD Date of Service: 02/28/25 Procedure(s): MR head/brain wo/w con Accession Number(s): [id number] cc: Livia Ramesh MD; Grey Tinajero MD EXAMINATION: MR BRAIN AND SELLA WITHOUT AND WITH CONTRAST CLINICAL INFORMATION: Follow-up benign neoplasm pituitary gland. COMPARISON: 06/16/2024, 02/03/2023. TECHNIQUE: Multiplanar, multisequence MRI of the brain and sella was obtained before and after the intravenous administration of 5 mL Gadavist. Examination performed on a 1.5 Sveta Siemens high-field unit. FINDINGS: SELLA: Redemonstration of a hypoenhancing lesion in the anterior aspect of the pituitary gland, measuring 0.5 x 0.8 x 0.6 cm, (AP, TRV, CC), essentially unchanged in size compared with the prior examination where it measured 0.6 x 0.8 x 0.7 cm, respectively. There is no suprasellar extension or mass effect upon the suprasellar structures or optic apparatus. There is no invasion of the cavernous sinuses. There are maintained normal signal voids in the carotid siphons without evidence of carotid encasement. The infundibulum is slightly right deviated, normal in thickness, and enhances normally. BRAIN: There is no diffusion restriction. There is no intracranial hemorrhage, acute infarction, mass effect, or edema. Ventricles, sulci, and cisterns are normal in size and configuration for patient age. No shift of midline. No abnormal hemosiderin deposition is identified. There are a few scattered punctate foci of white matter T2 hyperintensity in the periventricular, subcortical, and hemispheric deep white matter. These foci are nonspecific but statistically most likely relate to small vessel ischemic changes. Midline structures appear normally formed. The pituitary gland appears normal. Posterior fossa structures appear normal. Cerebellar tonsils are appropriately located. Major flow voids are preserved within the skull base. The globes and orbital contents demonstrate no abnormalities. Paranasal sinuses are clear bilaterally. The mastoids and tympanic cavities are normally aerated. Extracranial soft tissues demonstrate no abnormalities. No suspicious bone marrow changes are evident. Atlantoaxial joint demonstrates mild to moderate degenerative change. MR/MR head/brain wo/w con IMPRESSION: 1. Essentially unchanged pituitary microadenoma within the anterior aspect of the gland as described. 2. No evidence of intracranial hemorrhage, acute infarction, mass effect, or edema. No abnormal intra or extra-axial enhancement identified. 3. Stable minimal changes of small vessel ischemia. Electronically signed by: Leobardo Montano MD 02/28/2025 09:54 AM EDT Dictated By: Leobardo Montano MD Signed By: <Electronically signed by Leobardo Montano MD in OV> 02/28/2554 DD/ TD/TT: 02/28/25 09 Offshoring Manager: [facility] External Provider IMG MRI PROCEDURES Final Result * CT Lung Screening Low dose (06/18/2024) Anatomical Region Laterality Modality Lung Computed Tomogra phy Livia Ramesh MD IMG CT PROCEDURES Final Res ult * Albumin, Random Urine W/Creatinine (02/06/2024 10:30 AM EDT) Creatinine, Urine 110.20 mg/dL [facility] Microalbumin Urine <5.0 mg/L [facility] Microalbum Creatinine Ratio Ur TNP <30 ug/mg cr [facility] Comment:Unable to calculate albumin/creatinine ratio due to lowmicroalbumin or creatinine result. Urine (Urine, Random) 02/06/2024 10:30 AM EDT 02/06/2024 9:48 PM EDT Livia Ramesh MD LAB URINE ORDERABLES Final Result [facility] [address] [place] [phone] * Hm Colonoscopy (05/31/2022) Colonoscopy Normal Normal Narrative Maya Gary - 05/31/2022 Recommended 3 year follow up us Historical Provider HEALTH MAINTENANCE Final Result * LIPID PANEL (11/26/2020 8:33 AM EDT) Cholesterol 90 mg/dL [facility] Comment: Desirable Cholesterol: less than 200 mg/dL Borderline High Cholesterol: 200-239 mg/dL High Cholesterol: greater than 239 mg/dL HDL Cholesterol 36 mg/dL [facility] Comment: Desirable HDL: greater than 40 mg/dL Note: This HDL assay may give artificially low results in patients with liver disease. LDL Cholesterol Calculated 48 mg/dl [facility] Comment: Desirable LDL: less than 100 mg/dL Near Optimal/Above Optimal LDL: 110-129 mg/dL Borderline High LDL: 130-159 mg/dL High LDL: 160-189 mg/dL Very High LDL: greater than or equal to 190 mg/dL Triglycerides 34 mg/dL [facility] Comment: Desirable Triglyceride: less than 150 mg/dL Borderline High Triglyceride 150-199 mg/dL High Triglyceride: 200-499 mg/dL Very High Triglyceride: greater than or equal to 5OO mg/dL 11/26/2020 8:33 AM EDT us Historical Provider HISTORICAL/NON ORDERABLE LABS Final Result Performing Organization Address City/State/[facility] Co de Phone Number [facility] [address] from Last 3 Months or Most Recently Relevant to Health Maintenance Insurance [facility] ONE CARE < 65 [employer] [id number] Care Teams [employer] Relationship Specialty Start Date End Date Livia Ramesh MD [address] [place], [place] [address] [address] PCP - General Internal Medicine 07/25/18 Home Care [facility] 08/21/18
--- OUTSIDE RECORDS SUMMARY | 2025-04-19 09:54 | XMS_ITS | Encounter Summary ---
Author Organization [employer] Address [address] [place] [address] [address] [place] [address] Care Team Providers Care Scouring Machine Tender Name Role Phone Livia Ramesh MD Primary Care Provider [phone] Reason for Visit * Reason Onset Date Comments Appointment Request 03/07/2023 Encounter Details Date Type Department Care Team (Late Contact Info) Description 03/07/2023 Telephone [facility] [address] [place] [address] Livia Ramesh MD [address] [place] [address] Appointment Request Social History Tobacco Use Types [...] discuss with PCP. Please contact pt at [phone] Japanese Speaker documented in this encounter Plan of Treatment Upcoming Encounters Date Type Department Care Team (Late Contact Info) Description 05/02/2025 9:00 AM EDT Telemedicine [facility] [address] [place] [address] Arina Saez, PharmD [address] [place], [place] [phone] documented as of this encounter Visit Diagnoses Not on filedocumented in this encounter Care Teams Scouring Machine Tender Relationship Specialty Start Date End Date Livia Ramesh MD [address] [place] [address] PCP - General Internal Medicine 07/25/18 Home Care [facility] 08/21/18 documented as of this encounter
--- OUTSIDE RECORDS SUMMARY | 2025-04-19 09:54 | XMS_ITS | Encounter Summary ---
Author Organization [employer] Address [address] [place] [address] Care Team Providers Care Exceptional Children Teacher Assistant Name Role Phone Livia Ramesh MD Primary Care Provider [phone] Reason for Visit * Reason Comments Med Refill Encounter Details Date Type Department Care Team ([facility] st Contact Info) Description 05/02/2024 Refill [facility] [address], [place] [phone] Livia Ramesh MD [address], [place] [phone] COPD mixed type (CMS/HCC) Social History Tobacco [...] Info) Description 05/02/2025 9:00 AM EDT [facility]med[facility] [address] [place] [address] Arina Saez, CaterinaD [address] [place] [address] documented as of this encounter Visit Diagnoses Diagnosis COPD mixed type (CMS/HCC) documented in this encounter Additional Health Concerns Assessment Noted Time PHQ-9 Depression Total Score: 1 05/18/20 23 9:54 AM EDT documented as of this encounter Care Teams Exceptional Children Teacher Assistant Relationship Specialty Start Date End Date Livia Ramesh MD [address] [place] [address] PCP - General Internal Medicine 07/25/18 [facility] 08/21/18 documented as of this encounter
== END 2025-04-19 09:44 | disposition home or self-care (01) ==
LOC: HO.HUSH 09:10
PROVIDERS: PCP Internal Medicine; Visit Provider Urology
DX: R39.12 Poor urinary stream (principal); N32.0 Bladder-neck obstruction; Z13.9 Encounter for screening, unspecified
CPT/HCPCS: 99204

== ENCOUNTER → 2025-04-19 09:10 | Outpatient (BNVA) | payer OTHER, SELFPAY | PROVIDERS: PCP Internal Medicine; Visit Provider Urology | DX: N32.0 Bladder-neck obstruction (principal); R39.12 Poor urinary stream | CPT/HCPCS: 51798; 81003; 99202 ==

== ENCOUNTER 2025-07-02 09:14 | Outpatient (AMB) | payer OTHER, SELFPAY ==
--- NOTE | 2025-07-02 09:17 | A.OFFVIS_ITS ---
Intake Visit Reasons: uroflow/PVR/ SET ( NO UA ) Intake Note: patient presents today for: Uroflow urology medications: Androgel, Tamsulosin blood thinners: none KNDA labs done 11/26/24: t-testo 337, fr testo 55, PSA 0.32 today's PVR:16 mls Salon Shampoo Assistant Required: Yes Accompanied by: Self / Same As Patient Allergies No Known Allergies (No Known Allergies*) Allergy (Verified 04/19/25 09:13) HPI Comments Details: Baljeet is a pleasant male. He is a patient of . He seen for the following urologic conditions - lower urinary tract symptoms Faroese translation provided in office by qualified director medical safety Uroflow performed Insufficient voided volume to allow adequate interpretation- Q max 11 voided volume 16 cc Describes improved urination and better nocturia Follow-up six-month lab work Hypogonadotropic Hypogonadism VICTORIA on CPAP Pituitary microadenoma diagnosed through endocrine On replacement AndroGel Background diabetes and long-term methadone use Osteopenia DEXA When off testosterone has low LH and low testosterone Encouraged to remain on testosterone - 12/16 T 340 Lower urinary tract symptoms Initial presentation with obstructive symptoms Weakness of stream Minimal nocturia or urge and frequency PFSH Medical History Osteopenia Goiter Pituitary microadenoma Hypogonadotropic hypogonadism Hypogonadism in male Vitamin D deficiency Hypogonadism Thrombocytopenia Osteoarthritis Myalgia Sleep apnea Colon polyps Hepatitis C VICTORIA (obstructive sleep apnea) COPD (chronic obstructive pulmonary disease) Surgical History Hx of carpal tunnel repair Family History Maternal Aunt Cancer Father Diabetes Paternal Aunt Diabetes Paternal Aunt Diabetes Social History Alcohol intake: former Patient Tobacco Use Status: Current everyday Tobacco user Cigarette Packs Per Day: 10 Years Smoked: 45 Substance Use Type: Prescription Drugs Current occupational status: unemployed Current occupation: rt handed Review of Systems Const Denies chills and Denies fever(s) Card Reports no additional complaints and Denies syncope Resp Denies cough GI Denies abdominal pain and Denies heartburn Reports as per HPI and Denies change in libido Neuro Denies syncope Psych Denies change in libido Endo Denies change in libido Physical Exam Const General: cooperative, healthy appearing, comfortable and no acute distress Orientation/consciousness: patient oriented x3 HEENT Face and sinus: Yes normal facial exam Mouth: moist mucous membranes Neck Neck: Yes normal visual inspection, Yes full ROM and Yes trachea midline Chest Chest palpation & inspection: normal inspection of the chest Resp Effort & Inspection: normal respiratory effort, able to speak in complete sentences and no respiratory distress GI Inspection: Yes normal to inspection Back/Spine/Pelvis Cervical Spine: normal cervical lordosis Thoracic/Lumbar Spine: thoracic and lumbar spine normal to inspection Skin General skin exam: no rashes or lesions noted Neuro General: patient oriented x3, gait normal, tone normal and moves all extremities Extrem General: Yes normal to inspection and Yes capillary refill normal Office Procedures AMB Uroflow Maximum urinary flow rate (mL/second): 11 Voided volume (mL): 16 Comments: Inadequate volume for interpretation. Q max 11, voided volume 16 Procedure code (CPT) selection complete Post Void Residual Post Residual Void Post Void Residual (PVR): 16 [id number] Void Residual by ultrasound Assessment & Plan Assessment & Plan (1) Weak urinary stream: Code(s): R39.12 - Poor urinary stream Category: Medical (2) Bladder outlet obstruction: Code(s): N32.0 - Bladder-neck obstruction Category: Medical (3) Hypogonadotropic hypogonadism: Code(s): E23.0 - Hypopituitarism Category: Medical Plan Six-month follow-up office lab work Orders: Orders AMB Uroflow Today N32.0 - Bladder-neck obstruction, R35.0 - Frequency of micturition, R39.15 - Urgency of urination Testosterone, Total 5 Months E29.1 - Testicular hypofunction Prostate Specific Antigen 5 Months E29.1 - Testicular hypofunction Hematocrit 5 Months E29.1 - Testicular hypofunction Patient Instructions: This note is constructed using voice recognition software. While every effort has been made to ensure accuracy right of way supervisor errors may have been included. Imaging studies, laboratory and physical exam results were discussed and reviewed in detail. No major barriers to patient understanding were identified. An opportunity to ask questions regarding the treatment plan was provided. All questions were answered. The patient expressed understanding and agreement with the above treatment plan. The patient is aware they should contact our office by phone for worsening of their current condition or the appearance of new urologic symptoms. Compliance is encouraged with any medications and followup testing that is ordered. It is a privilege to participate in the urologic care of your patient. If you have any questions or concerns regarding treatment for the above conditions, or other urologic issues, please do not hesitate to contact me. The office telephone contact is [phone]. Sincerely, Dr Armando Brooks MD, [facility] - Urology Compassionate Specialist Care for the Genitourinary System Coding Level of Care Code Est Pt Level 3 (34621) Complex visit Add On G2211 Diagnoses Weak urinary stream R39.12 Bladder outlet obstruction N32.0 Hypogonadotropic hypogonadism E23.0 CPT Codes Post Residual Void - PVR CPT Code: 72253-Otxn Void Residual by ultrasound ([id number])
== END 2025-07-02 10:43 | disposition home or self-care (01) ==
LOC: HO.HUSH 09:14
PROVIDERS: PCP Internal Medicine; Visit Provider Urology
DX: R39.12 Poor urinary stream (principal); N32.0 Bladder-neck obstruction; E23.0 Hypopituitarism
CPT/HCPCS: 99213; G2211

== ENCOUNTER → 2025-07-02 09:14 | Outpatient (BNVA) | payer OTHER, SELFPAY | PROVIDERS: PCP Internal Medicine; Visit Provider Urology | DX: N32.0 Bladder-neck obstruction (principal); E23.0 Hypopituitarism; E29.1 Testicular hypofunction; R39.12 Poor urinary stream; R35.0 Frequency of micturition; R39.15 Urgency of urination | CPT/HCPCS: 51798; 99212 ==